=== PATIENT | male | born 1935 | race Caucasian/White ===

== ENCOUNTER 2020-01-18 13:07 | Outpatient (REF) | payer MEDICARE, SELFPAY ==
[2020-01-18 16:18] LABS: Alanine Aminotransferase 6 U/L (0-40); Anion Gap 15 (12-20); Aspartate Amino Transferase 13 U/L (5-37); Blood Urea Nitrogen 24 mg/dL (9-16); Calcium 8.7 mg/dL (8.4-10.2); Carbon Dioxide 25 mmol/L (22-29); Chloride 102 mmol/L (96-108); Estimated Glomerular Filt Rate 39; Glucose Random 99 mg/dL (60-115); Magnesium 2.4 mg/dL (1.6-2.6); Potassium 4.6 mmol/l (3.3-5.1); Sodium 137 mmol/L (135-145)
[2020-01-18 16:42] LABS: Thyroid Stimulating Hormone 5.54 mIU/mL (0.32-4.0)
== END 2020-01-18 13:08 | disposition home or self-care (01) ==
LOC: HO.LAB 13:07
PROVIDERS: PCP Internal Medicine; Visit Provider Nurse Practitioner Family
DX: I47.2 Ventricular tachycardia (principal); I48.92 Unspecified atrial flutter; I50.20 Unspecified systolic (congestive) heart failure; Z95.810 Presence of automatic (implantable) cardiac defibrillator
CPT/HCPCS: 80048; 83735; 84443; 84450; 84460; 93005; 99214

== ENCOUNTER 2020-08-05 11:27 | Outpatient (REF) | payer SELFPAY ==
--- NOTE | 2020-08-05 13:23 | MHC.AU.HFU ---
Hearing Instrument Follow-Up- Binaural Date of Visit: 08/05/20 Right Ear: Blanker Press Operator: Phonak Model: Personeraero [id number]-M13 Serial Number: [id number] Repair Warranty: Loss and Damage Warranty: Battery Size: 13 Color: Graphite Hawthorne Tubing: Size 2 slim tube Type of Dome: Small Open Dispensed By: [facility] Date of Fittin12/09/2013 Left Ear: Blanker Press Operator: Phonak Model: Bolero [id number] Serial Number: [id number] Repair Warranty: Loss and Damage Warranty: Battery Size: 13 Color: Graphite Hawthorne Tubing: Size 2 Slim Tube Type of Dome: Small Open Dispensed By: [facility] Date of Fittin12/09/2013 Follow-Up Summary: Patient's hearing aids were dropped off for repair by his friend, Suzanne. Slim tubes were occluded. Slim tubes and domes were replaced. Debris cleaned out of battery compartments. Outer surfaces cleaned. Microphones vacuumed. Hearing aids are working well after maintenance. Recommendations: Called Suzanne to say the hearing aids were ready for pickle cutter. $10 owed at pick-up. Diagnosis Code(s): Primary Diagnosis: H90.3 Bilateral Sensorineural Hearing Loss Signature: Provider: Po Elizondo, CCC-A
== END 2020-08-05 11:28 | disposition home or self-care (01) ==
LOC: HO.HAP 11:27
PROVIDERS: Visit Provider Internal Medicine
DX: Z46.1 Encounter for fitting and adjustment of hearing aid (principal); H90.3 Sensorineural hearing loss, bilateral
CPT/HCPCS: 99499

== ENCOUNTER → 2020-08-15 13:17 | Outpatient (BNVA) | payer BC, SELFPAY | PROVIDERS: PCP Internal Medicine; Referring Provider Internal Medicine; Visit Provider Internal Medicine Cardiovascular Disease | DX: Z45.02 Encounter for adjustment and management of automatic implantable cardiac defibrillator (principal); I50.20 Unspecified systolic (congestive) heart failure; I48.92 Unspecified atrial flutter | CPT/HCPCS: 93005 ==

== ENCOUNTER → 2020-09-22 08:51 | Outpatient (REF) | payer BC, SELFPAY ==
--- NOTE | 2020-09-22 09:29 | CA_ITS ---
Transthoracic Echocardiogram Patient (Last, First, Middle): Jr Dsouza, Gender: Male Date of : 1935 Age: 85 Procedure Date: 09/22/2020 Procedure Type: Transthoracic Echocardiogram Location: OP Height: 180.34 cm Weight: 97.52 kg BSA: 2.17 m2 Heart Rate: bpm BP: 124 / 74 mmHg German Instructor: Referring MD: Javier Dooley MD Respite Coordinator: Javier Dooley MD Symptoms: I50.20 - Unspecified systolic (congestive) heart failure Study Quality: Fair ECG Rhythm: Atrial Fibrillation Conclusions: - 1. Low normal LV systolic function with mild LVH 2. Mildly dilated left atrium 3. Trivial aortic and mitral regurgitation 4. No gross pericardial effusion Findings Left Ventricle Normal left ventricular cavity size. There is mildly increased left ventricular wall thickness. The left ventricular systolic function is low normal. The visually estimated ejection fraction is between 50-55%. Diastolic function is indeterminate on the basis of available data. Right Ventricle Normal right ventricular cavity size. There is an ICD wire seen in the right ventricle. Atria The left atrium is mildly dilated. Interatrial shunt cannot be excluded. The right atrium is mildly dilated. Aortic Valve There is mild calcification of the aortic valve. There is no aortic valve stenosis. There is trace (trivial) aortic valve regurgitation. Mitral Valve There is mild anterior and posterior mitral leaflet thickening. There is mild mitral annular calcification. There is trace mitral valve regurgitation. There is no mitral valve stenosis. Pulmonic Valve The pulmonic valve was not well visualized. Tricuspid Valve The tricuspid valve was not well visualized. Tricuspid regurgitation envelope is inadequate for calculation of right ventricular systolic pressure. Great Vessels The aorta was not well visualized. The pulmonary artery was not well visualized. Venous The inferior vena cava is normal in size and collapses greater than 50% with inspiration. Pericardium/Pleural There is no evidence of pericardial effusion. Prior Study Comparison Changes noted compared to prior study dated: 07/18/2018. LV systolic function has improved Measurements 2D Linear Measurements RVIDd: 2.82 RVIDd Index: 1.30 IVSd: 1.17 0.6-0.9/0.6-1.0 cm LVIDd: 4.87 3.9-5.3/4.2-5.9 cm LVIDd Index: 2.24 2.4-3.2/2.2-3.1 cm/m2 LVIDs: 3.33 2.0-3.6 cm LVPWd: 1.36 0.7-1.1 cm Ao Root: 4.00 2.1-3.5 cm LA Diam: 4.70 2.7-3.8/3.0-4.0 cm LAIDs Index: 2.17 1.5-2.3 cm/m2 LV Mass: 301.31 67-162/88-224 g LV Mass Index: 138.85 43-95/49-115 g/m2 LVOT Diam: 2.50 3.0+(-)1.3 cm 2D Systolic Function EF 4C: 49.70 >55% EF 2C: 57.70 >55% EF BiP: 54.70 >55% Aortic Valve AoV Pk Haresh: 1.09 AoV Mn Haresh: 0.83 AoV VTI: 0.18 AoV Pk Grad: 5.00 Aov Mn Grad: 3.00 CASSY Cont.VTI: 3.41 LVOT LVOT Pk Haresh: 0.65 LVOT Mn Haresh: 0.51 LVOT VTI: 0.12 LVOT Pk Grad: 2.00 LVOT Mn Grad: 1.00 LVOT Diam: 2.50 LVOT Area: 4.91 Tricuspid Valve RA Press: 3.00 Great Vessels Aorta Ao Root-2D: 4.00 2.0-3.7 cm Ao Asc: 4.00 2.1-3.4 cm Ao Arch: 3.40 Updated in Other Vendor System with Status of Final Javier Dooley MD electronically signed on 09/23/2020 12:15:16 PM with status of Final
== END ==
LOC: HO.CARD 08:51
PROVIDERS: PCP Internal Medicine; Visit Provider Internal Medicine Cardiovascular Disease
DX: I50.20 Unspecified systolic (congestive) heart failure (principal)
CPT/HCPCS: 93306

== ENCOUNTER 2021-01-16 10:20 | Outpatient (REF) | payer BC, SELFPAY ==
[2021-01-16 10:58] LABS: Hematocrit 37.9 % (42-52); Hemoglobin 12.2 g/dl (14.0-18.0); Mean Corpuscular HGB Conc 32.2 g/dl (31.0-36.0); Mean Corpuscular Hemoglobin 31.9 pg (27.0-33.0); Mean Corpuscular Volume 99.2 fL (80-98); Mean Platelet Volume 10.7 fL (9.4-12.4); Platelet Count 212 X10*3/uL (160-400); Red Blood Count 3.82 X10*6/uL (4.60-5.80); Red Cell Distribution Width 14.1 % (11.0-16.0); White Blood Count 5.1 X10*3/uL (4.8-10.8)
[2021-01-16 11:27] LABS: Alanine Aminotransferase 8 U/L (0-40); Alkaline Phosphatase 87 U/L (39-117); Anion Gap 12 (12-20); Aspartate Amino Transferase 16 U/L (5-37); Bilirubin Total 0.3 mg/dL (0.0-1.0); Blood Urea Nitrogen 20 mg/dL (9-16); Calcium 9.3 mg/dL (8.4-10.2); Carbon Dioxide 26 mmol/L (22-29); Chloride 107 mmol/L (96-108); Estimated Glomerular Filt Rate 38; Glucose Random 99 mg/dL (60-115); Potassium 4.1 mmol/L (3.3-5.1); Sodium 141 mmol/L (135-145); Total Protein 7.2 g/dL (6.5-8.0)
[2021-01-16 12:29] LABS: Free T4 (Free Thyroxine) 1.11 ng/dL (0.71-1.85)
== END 2021-01-16 10:21 | disposition home or self-care (01) ==
LOC: HO.LAB 10:20
PROVIDERS: Visit Provider Nurse Practitioner Family
DX: I48.92 Unspecified atrial flutter (principal); I50.20 Unspecified systolic (congestive) heart failure; Z79.01 Long term (current) use of anticoagulants
CPT/HCPCS: 36415; 80053; 84439; 84443; 85027

== ENCOUNTER 2021-02-13 09:14 | Outpatient (REF) | payer MEDICARE, SELFPAY ==
[2021-02-13 09:41] LABS: MANUAL DIFF FLAG NO
[2021-02-13 10:13] LABS: Basophils Percent Auto 0.6 % (0-2); Eosinophils Absolute Auto 0.2 X10*3/uL (0.0-0.4); Eosinophils Percent Auto 4.5 % (0-4); Hematocrit 38.4 % (42.0-52.0); Hemoglobin 12.6 g/dl (14.0-18.0); Imm Gran Abs Auto 0.01 X10*3/uL (0.00-0.03); Imm Gran Pct Auto 0.2 % (0.0-0.4); Lymphocytes Absolute Auto 1.3 X10*3/uL (1.2-4.9); Lymphocytes Percent Auto 25.3 % (20-40); Mean Corpuscular HGB Conc 32.8 g/dl (31.0-36.0); Mean Corpuscular Hemoglobin 32.1 pg (27.0-33.0); Mean Corpuscular Volume 97.7 fL (80.0-98.0); Mean Platelet Volume 10.8 fL (9.4-12.4); Monocytes Absolute Auto 0.5 X10*3/uL (0.1-1.2); Monocytes Percent Auto 8.8 % (2-11); Neutrophils Absolute Auto 3.1 x10*3/uL (2.0-8.3); Neutrophils Percent Auto 60.6 % (45-73); Platelet Count 192 X10*3/uL (160-400); Red Blood Count 3.93 X10*6/uL (4.60-5.80); Red Cell Distribution Width 14.4 % (11.0-16.0); White Blood Count 5.1 X10*3/uL (4.8-10.8)
[2021-02-13 10:35] LABS: B Type Natriuretic Peptide 83 pg/mL (<100)
[2021-02-13 10:53] LABS: Alanine Aminotransferase 9 U/L (0-40); Alkaline Phosphatase 79 U/L (39-117); Anion Gap 12 (12-20); Aspartate Amino Transferase 16 U/L (5-37); Bilirubin Total 0.4 mg/dL (0.0-1.0); Blood Urea Nitrogen 20 mg/dL (9-16); Calcium 9.3 mg/dL (8.4-10.2); Carbon Dioxide 25 mmol/L (22-29); Chloride 108 mmol/L (96-108); Estimated Glomerular Filt Rate 41; Glucose Random 92 mg/dL (60-115); Potassium 4.2 mmol/L (3.3-5.1); Sodium 141 mmol/L (135-145); Total Protein 7.2 g/dL (6.5-8.0)
[2021-02-13 11:05] LABS: Estimated Average Glucose 120 mg/dL; Hemoglobin A1C 131.7052 umol/L; Hemoglobin A1c % 5.8 %
[2021-02-13 11:19] LABS: Free T4 (Free Thyroxine) 1.16 ng/dL (0.71-1.85); Prostate Specific Antigen < 0.05 ng/mL (<0.05-4.0); Thyroid Stimulating Hormone 4.55 uIU/mL (0.32-4.0)
[2021-02-14 12:36] LABS: Thyroid Peroxidase Antibodies 1 IU/mL (<9)
== END 2021-02-13 09:15 | disposition home or self-care (01) ==
LOC: HO.LAB 09:14
PROVIDERS: PCP Internal Medicine; Visit Provider Internal Medicine
DX: I10 Essential (primary) hypertension (principal); I50.22 Chronic systolic (congestive) heart failure; M17.0 Bilateral primary osteoarthritis of knee; I48.20 Chronic atrial fibrillation, unspecified; E03.2 Hypothyroidism due to medicaments and other exogenous substances; R73.01 Impaired fasting glucose; Z85.46 Personal history of malignant neoplasm of prostate
CPT/HCPCS: 36415; 80053; 83036; 83880; 84153; 84439; 84443; 85025; 86376

== ENCOUNTER 2021-04-10 11:28 | Inpatient (IN) | payer MEDICARE, SELFPAY ==
--- NOTE | ~2021-04-10 | CT_ITS ---
EXAMINATION: CT ABDOMEN AND PELVIS WITHOUT CONTRAST CLINICAL INFORMATION: 2 weeks diarrhea. COMPARISON: None TECHNIQUE: Multidetector volumetric imaging was performed from the superior aspect of the liver through the pubic symphysis. No oral or intravenous contrast. Sagittal and coronal reformatted images were obtained on the technologist's workstation. This CT examination was performed using dose optimization techniques as appropriate, variously including the following: *Automated exposure control *Adjustment of mA and/or kV according to patient size (this includes techniques or standardized protocols for targeted exams where dose is matched to indication/reason for exam; i.e. extremities or head) *Use of iterative reconstruction technique DLP: 775 mGy-cm FINDINGS: LUNG BASES: No airspace consolidation or definite groundglass opacity or effusion. There are some accentuated subpleural reticular markings at both bases. Mild focal traction bronchiectasis present right medial base. LIVER, GALLBLADDER, AND BILIARY TREE: Liver is normal in size and smooth in contour. There is some benign calcification near the intersegmental fissure dome left lobe. There is no intrahepatic ductal dilatation. No focal hepatic parenchymal lesion. The gallbladder shows uniform high attenuation lumen, approximately 78 2. There is no gallbladder wall thickening or pericholecystic inflammatory changes. No high attenuation and common duct. PANCREAS: Atrophic, otherwise unremarkable. SPLEEN: Unremarkable. ADRENAL GLANDS: Unremarkable. KIDNEYS AND URETERS: No hydronephrosis, hydroureter, or perinephric stranding. Right kidney has a circumscribed water attenuation cyst lower pole 8 cm diameter, 2 HU attenuation. No additional imaging follow-up required. Left kidney has small parenchymal calcification lower pole under 4 mm. There is bilobed cyst lateral left lower pole 3.7 x 2.8 cm, 3 HU attenuation. No additional imaging follow-up required. BLADDER: Unremarkable. GASTROINTESTINAL TRACT: There is nonspecific circumferential pneumatosis involving the rectosigmoid. There is no bowel wall thickening or pericolic inflammatory changes. No fluid collection, or ascites, proximal obstruction, or free air. There are scattered diverticular in the sigmoid without diverticulitis. The appendix appears normal. ABDOMINAL WALL: Prior hernia repair. Small fat-containing inguinal hernia is suggested. LYMPH NODES: No lymphadenopathy. VASCULAR: Unremarkable. PELVIC VISCERA: No additional findings. OSSEOUS STRUCTURES: Degenerative changes lower thoracic and lumbar spine. Results called and discussed with ODIN Cordero in the emergency department at [address]/CT abdomen pelvis wo con IMPRESSION: 1. Nonspecific circumferential pneumatosis limited to rectosigmoid. No bowel wall thickening or pericholecystic inflammatory changes. No free air or obstruction or ascites or fluid collection. No venous gas. Differential considerations include iatrogenic cause, medication/steroids, infection/inflammatory, and ischemia. 2. Nonspecific high attenuation gallbladder lumen without wall thickening, or visible calculi, ductal dilatation, or pericholecystic inflammatory changes. Differential considerations include outside contrast-enhanced exam with vicarious excretion, hyper concentrated bile, sludge, gallbladder hemorrhage, drug-induced.
--- NOTE | ~2021-04-10 | US_ITS ---
EXAMINATION: US ABDOMEN LIMITED CLINICAL INFORMATION: Characterize gallbladder findings on CT. COMPARISON: CT abdomen and pelvis 04/10/2021 TECHNIQUE: Real-time imaging of the right upper quadrant abdominal viscera. FINDINGS: There is echogenic debris in the gallbladder but no echogenic stones. Gallbladder wall thickness measures 0.25 cm. There is no tenderness by ultrasound probe. Common bile duct measures 0.3 cm. US/US abdomen limited IMPRESSION: Dilated gallbladder with minimal echogenic debris but no echogenic stone. The gallbladder wall thickness is borderline measuring 0.25 cm.
[2021-04-10 11:59] VITALS: BP 101/56; BP 124/80; PULSE 65; PULSE 74; RESP 14; TEMP 35.9; O2SAT 93; O2SAT 98; BMI 30.7
--- NOTE | 2021-04-10 12:35 | ED.GENADULT ---
HPI - General Adult General Chief complaint: Nausea/Vomiting/Diarrhea Stated complaint: DIARRHEA Time Seen by Provider: 04/10/21 12:02 Source: patient Mode of arrival: EMS Limitations: no limitations History of Present Illness HPI narrative: 86-year-old male with a past medical history of AFib on Eliquis, cardiomyopathy, heart failure, ICD, and NSVT who lives in assisted living presents for 2 weeks of diarrhea. Patient is reporting at least 5 episodes of diarrhea daily for the last 2 weeks. Prior to this he had normal bowel movements. Patient denies any recent antibiotic use, travel, any new water sources, bad food. Denies vomiting or abdominal pain. No fevers. Is eating okay. He does not feel weak or dizzy, no chest pain, no shortness of breath. No sick contacts. He is vaccinated for COVID. Related Data Home Medications Medication Instructions Recorded Confirmed lisinopril 2.5 mg tablet 2.5 mg PO DAILY 01/18/20 08/15/20 metoprolol tartrate 25 mg tablet 12.5 mg PO TID 01/18/20 08/15/20 Previous Rx's Medication Instructions Recorded apixaban 2.5 mg tablet (Eliquis) 2.5 mg PO BID #180 tab 02/01/20 cilostazol 50 mg tablet 50 mg PO Q12H #180 tab 04/01/20 amiodarone 200 mg tablet 200 mg PO DAILY 90 Days #90 tab 03/08/21 Allergies Allergy/AdvReac Type Severity Reaction Status Date / Time No Known Allergies Allergy Unverified 12/10/19 15:32 [No Known Allergies*] Review of Systems Constitutional: Constitutional: Denies body ache(s), Denies chills, Denies fatigue, Denies fever(s), Denies headache(s), Denies malaise and Denies weakness Eyes: Eyes: Denies diplopia ENT: Denies vertigo, Denies dizziness, Denies otalgia, Denies headache(s), Denies sore throat and Denies throat swelling Cardiovascular: Cardiovascular: Denies chest pain, Denies syncope, Denies leg edema, Denies palpitations and Denies dyspnea Respiratory: Respiratory: Denies chest congestion, Denies cough and Denies dyspnea Gastrointestinal: Gastrointestinal: Denies abdominal pain, Denies melena, Denies hematochezia, Denies constipation, Reports diarrhea and Denies vomiting Genitourinary: Genitourinary: Denies hematuria, Denies dysuria and Denies penile discharge Musculoskeletal: Musculoskeletal: Reports no additional musculoskeletal complaints Integumentary/Breasts: Skin/Breast: Denies rash Neurologic: Denies confusion, Denies vertigo, Denies dizziness, Denies syncope, Denies headache(s) and Denies weakness Psychiatric: Psychiatric: Denies anxiety, Denies confusion and Denies depression Endocrine: Endocrine: Denies fatigue and Denies palpitations Allergic/Immunologic: Allergic/Immunologic: Denies throat swelling PMFSH Past Medical History Medical History (Updated 04/10/21 @ 17:52 by Cristian Guerrero MD) Afib Atrial flutter Cardiomyopathy Chronic anticoagulation Diarrhea HFrEF (heart failure with reduced ejection fraction) ICD (implantable cardioverter-defibrillator) in place NSVT (nonsustained ventricular tachycardia) Pneumatosis coli Surgical History H/O prostatectomy Family History Family History Father No problems noted. Mother No problems noted. Social History Social History Housing: Assisted Living Facility Alcohol intake: never Patient Tobacco Use Status: Never used Tobacco Use of substances other than those prescribed or required for medical reasons: No Advance Directives: No Advance Directives Information Provided: No Physical Exam Vital Signs: Vital Signs: Last Vital Signs Temp 98 F 04/10/21 16:22 Pulse 65 04/10/21 16:22 Resp 14 04/10/21 16:22 BP 109/58 L 04/10/21 16:22 Pulse Ox 95 04/10/21 16:22 BMI result Body Mass Index 30.7 Const: General: no acute distress, well developed, alert and awake; No confusion Nutritional Appearance: well nourished Orientation/consciousness: patient oriented x3 and No confusion Limitations: no limitations HENMT: Head: Yes normal to inspection, Yes normocephalic and Yes atraumatic Ears: hearing grossly normal bilaterally, external ears normal, TM's normal bilaterally and EAC's normal General nose exam: Normal external nose present Face and sinus: Yes normal facial exam and Yes sinuses nontender Mouth: Normal oral and palatal mucosa present Throat: Yes posterior oropharynx normal Eyes: Conjunctivae: conjunctivae normal Pupils: Equal, round and reactive pupils present EOM: EOMs intact bilaterally Neck: Neck: Yes full ROM, Yes no lymphadenopathy and Yes supple Resp: Effort & Inspection: normal respiratory effort and able to speak in complete sentences Auscultation: clear to auscultation bilaterally, no crackles, no rales, no rhonchi and no wheezes Cardio: Rate: regular rate Rhythm: regular rhythm Heart sounds: S1 normal heart sound present and S2 normal heart sound present GI: Inspection: Yes normal to inspection and Yes obesity Palpation (GI): Soft to palpation, nontender, no guarding and not rigid Percussion: Yes normal to percussion Auscultation: normal bowel sounds Rectal Exam - Male: Yes visual inspection normal, Yes normal sphincter tone, Yes Abnormal stool present (liquid light brown stool, foul odor), No External hemorrhoid(s) present, No Internal hemorrhoid(s) present, No Lesions present (GI), No fecal impaction, No Anal fissure(s) present and No tenderness Skin: General skin exam: no rashes or lesions noted Neuro: General: patient oriented x3 and No confusion Cranial nerves: Yes Equal, round and reactive pupils present Extrem: General: Yes normal to inspection and Yes full ROM Psych: Appearance: grossly normal Affect: normal affect Attitude: cooperative Thought process: Normal thought process present Course Course Course Narrative: 86-year-old male presents for 2 weeks of multiple episodes of diarrhea. Patient has no chest pain, shortness of breath, abdominal pain, he does not feel weak or dizzy. Patient is hypotensive at 101/56, temperature 96.7? Patient has a benign abdominal exam, is not tender guarding in any quadrant. Rectal exam shows scant loose light colored brown stool with foul odor Patient is pleasant, mildly hard of hearing, he seems alert and oriented and very with it for his age Patient's hypotension most likely due to volume depletion, I do not suspect sepsis, but will give fluids get blood culture and lactate Reevaluation(s) Reevaluation #1: Patient has a white count of 17.4, a creatinine of 1.7 which is close to his baseline. COVID negative. Lactate 1.2. Labs otherwise unremarkable. Dr Smith radiologist called, [address]; pneumatosis in his rectosigmoid, with no wall thickening, no obstruction, no free air. Lactic acid is 1.2, unlikely ischemia. Also patient has high attenuation in his gallbladder that could represent gallbladder hemorrhage, sludge filled gallbladder, or increased bile. Patient has no abdominal pain, no elevated LFTs normal bilirubin. Will order ultrasound of gallbladder to characterize CT findings, added magnesium to labs CT: CT/CT abdomen pelvis wo con IMPRESSION: 1. Nonspecific circumferential pneumatosis limited to rectosigmoid. No bowel wall thickening or pericholecystic inflammatory changes. No free air or obstruction or ascites or fluid collection. No venous gas. Differential considerations include iatrogenic cause, medication/steroids, infection/inflammatory, and ischemia. ? 2. Nonspecific high attenuation gallbladder lumen without wall thickening, or visible calculi, ductal dilatation, or pericholecystic inflammatory changes. Differential considerations include outside contrast-enhanced exam with vicarious excretion, hyper concentrated bile, sludge, gallbladder hemorrhage, drug-induced. Reevaluation #2: Spoke to Dr Du, hospitalist via tiger text; he is aware of patient. Morven texted Dr Guerrero, general surgery, asked him to review CT scan. He texted he will come by and evaluate patient. Spoke to Dr Valdivia, GI oncall, who said pneumatosis in the rectosigmoid is a contraindication for lower GI endoscopy. Stated he suspected this finding was probably benign, as patient has no rectal pain, no abdominal pain, and a benign abdominal exam Ultrasound unremarkable, see report below, magnesium is normal at 2.0 US/US abdomen limited IMPRESSION: Dilated gallbladder with minimal echogenic debris but no echogenic stone. The gallbladder wall thickness is borderline measuring 0.25 cm. Discussed case with Dr Austin; we will start levoquin and flagyl Dr Guerrero evaluated pt, and would like him admitted for observation. Dr Du will accept Medical Decision Making Lab Data Result diagrams: 04/10/21 13:44 04/10/21 13:44 Labs: Lab Results 04/10/21 04/10/21 04/10/21 Range/Units 13:44 13:44 13:44 WBC 17.4 H (4.8-10.8) X10*3/uL RBC 3.82 L (4.60-5.80) X10*6/uL Hgb 12.4 L (14.0-18.0) g/dl Hct 36.3 L (42.0-52.0) % MCV 95.0 (80.0-98.0) fL MCH 32.5 (27.0-33.0) pg MCHC 34.2 (31.0-36.0) g/dl RDW 14.8 (11.0-16.0) % Plt Count 193 (160-400) X10*3/uL MPV 11.6 (9.4-12.4) fL Immature Gran % (Auto) 0.5 H (0.0-0.4) % Neut % (Auto) 52.6 (45-73) % Lymph % (Auto) 7.8 L (20-40) % [place] % (Auto) 4.0 (2-11) % Eos % (Auto) 34.9 H (0-4) % Baso % (Auto) 0.2 (0-2) % Lymph # (Auto) 1.4 (1.2-4.9) X10*3/uL [place] # (Auto) 0.7 (0.1-1.2) X10*3/uL Eos # (Auto) 6.1 H (0.0-0.4) X10*3/uL Baso # (Auto) 0.0 (0.0-0.2) X10*3/uL Abs Immat Gran (auto) 0.08 H (0.00-0.03) X10*3/uL Absolute Neuts (auto) 9.2 H (2.0-8.3) x10*3/uL Absolute Nucleated RBC 0.000 (0.0-0.012) X10*3/uL Nucleated RBC % (auto) 0.0 (0.0-0.2) /100WBC Smear Tech's Comments VERIFIED Sodium 141 (135-145) mmol/L Potassium 3.3 D (3.3-5.1) mmol/L Chloride 111 H (96-108) mmol/L Carbon Dioxide 22 (22-29) mmol/L Anion Gap 11 L (12-20) BUN 25 H (9-16) mg/dL Creatinine 1.70 H (0.5-1.4) mg/dL Estim Creat Clear Calc 38.2 Estimated GFR 38 Random Glucose 112 (60-115) mg/dL Lactic Acid (0.5-2.0) mmol/L Calcium 8.5 D (8.4-10.2) mg/dL Magnesium 2.0 (1.6-2.6) mg/dL Total Bilirubin 0.5 (0.0-1.0) mg/dL Direct Bilirubin 0.2 (0.0-0.5) mg/dL AST 14 (5-37) U/L ALT 11 (0-40) U/L Alkaline Phosphatase 116 D (39-117) U/L Total Protein 6.0 L (6.5-8.0) g/dL Albumin 3.1 L D (3.5-5.0) g/dL Lipase 19 (8-78) U/L Stool Occult Blood (NEGATIVE) COVID-19 (MIS) Negative (Negative) COVID-19 Clin Com See Note 04/10/21 04/10/21 Range/Units 13:44 16:19 WBC (4.8-10.8) X10*3/uL RBC (4.60-5.80) X10*6/uL Hgb (14.0-18.0) g/dl Hct (42.0-52.0) % MCV (80.0-98.0) fL MCH (27.0-33.0) pg MCHC (31.0-36.0) g/dl RDW (11.0-16.0) % Plt Count (160-400) X10*3/uL MPV (9.4-12.4) fL Immature Gran % (Auto) (0.0-0.4) % Neut % (Auto) (45-73) % Lymph % (Auto) (20-40) % [place] % (Auto) (2-11) % Eos % (Auto) (0-4) % Baso % (Auto) (0-2) % Lymph # (Auto) (1.2-4.9) X10*3/uL [place] # (Auto) (0.1-1.2) X10*3/uL Eos # (Auto) (0.0-0.4) X10*3/uL Baso # (Auto) (0.0-0.2) X10*3/uL Abs Immat Gran (auto) (0.00-0.03) X10*3/uL Absolute Neuts (auto) (2.0-8.3) x10*3/uL Absolute Nucleated RBC (0.0-0.012) X10*3/uL Nucleated RBC % (auto) (0.0-0.2) /100WBC Smear Tech's Comments Sodium (135-145) mmol/L Potassium (3.3-5.1) mmol/L Chloride (96-108) mmol/L Carbon Dioxide (22-29) mmol/L Anion Gap (12-20) BUN (9-16) mg/dL Creatinine (0.5-1.4) mg/dL Estim Creat Clear Calc Estimated GFR Random Glucose (60-115) mg/dL Lactic Acid 1.2 (0.5-2.0) mmol/L Calcium (8.4-10.2) mg/dL Magnesium (1.6-2.6) mg/dL Total Bilirubin (0.0-1.0) mg/dL Direct Bilirubin (0.0-0.5) mg/dL AST (5-37) U/L ALT (0-40) U/L Alkaline Phosphatase (39-117) U/L Total Protein (6.5-8.0) g/dL Albumin (3.5-5.0) g/dL Lipase (8-78) U/L Stool Occult Blood POSITIVE (NEGATIVE) COVID-19 (MIS) (Negative) COVID-19 Clin Com Discharge Plan Discharge Clinical Impression: Pneumatosis intestinalis Diarrhea Qualifiers: Diarrhea type: unspecified type Qualified Code(s): R19.7 - Diarrhea, unspecified Patient Disposition: Admitted As Inpatient
[2021-04-10] MEDS: 0.9 % Sodium Chloride 1,000 ML 999 ML IV (13:46)
[2021-04-10 13:58] LABS: Basophils Percent Auto 0.2 % (0-2); Eosinophils Absolute Auto 6.1 X10*3/uL (0.0-0.4); Eosinophils Percent Auto 34.9 % (0-4); Hematocrit 36.3 % (42.0-52.0); Hemoglobin 12.4 g/dl (14.0-18.0); Imm Gran Abs Auto 0.08 X10*3/uL (0.00-0.03); Imm Gran Pct Auto 0.5 % (0.0-0.4); Lymphocytes Absolute Auto 1.4 X10*3/uL (1.2-4.9); Lymphocytes Percent Auto 7.8 % (20-40); MANUAL DIFF FLAG SCAN; Mean Corpuscular HGB Conc 34.2 g/dl (31.0-36.0); Mean Corpuscular Hemoglobin 32.5 pg (27.0-33.0); Mean Platelet Volume 11.6 fL (9.4-12.4); Monocytes Absolute Auto 0.7 X10*3/uL (0.1-1.2); Neutrophils Absolute Auto 9.2 x10*3/uL (2.0-8.3); Neutrophils Percent Auto 52.6 % (45-73); Platelet Count 193 X10*3/uL (160-400); Red Blood Count 3.82 X10*6/uL (4.60-5.80); Red Cell Distribution Width 14.8 % (11.0-16.0); SCAN SMEAR FLAG 1; White Blood Count 17.4 X10*3/uL (4.8-10.8)
[2021-04-10 14:04] LABS: Lactic Acid 1.2 mmol/L (0.5-2.0)
[2021-04-10 14:10] LABS: Alanine Aminotransferase 11 U/L (0-40); Albumin Level 3.1 g/dL (3.5-5.0); Alkaline Phosphatase 116 U/L (39-117); Anion Gap 11 (12-20); Aspartate Amino Transferase 14 U/L (5-37); Bilirubin Direct 0.2 mg/dL (0.0-0.5); Bilirubin Total 0.5 mg/dL (0.0-1.0); Blood Urea Nitrogen 25 mg/dL (9-16); Calcium 8.5 mg/dL (8.4-10.2); Carbon Dioxide 22 mmol/L (22-29); Chloride 111 mmol/L (96-108); Creatinine Clr Calc Pharmacy 38.2; Estimated Glomerular Filt Rate 38; Glucose Random 112 mg/dL (60-115); Lipase 19 U/L (8-78); Potassium 3.3 mmol/L (3.3-5.1); Sodium 141 mmol/L (135-145)
[2021-04-10 14:17] LABS: COVID-19 Test Negative (Negative); SLIDE REVIEW VERIFIED
[2021-04-10 14:31] VITALS: BP 121/92; PULSE 64; RESP 18; TEMP 36.5; O2SAT 96
[2021-04-10 16:22] VITALS: BP 109/58; PULSE 65; RESP 14; TEMP 36.6; O2SAT 95
[2021-04-10 16:33] LABS: OBS Int Ctl Valid YES; OBS1 POSITIVE (NEGATIVE)
--- NOTE | 2021-04-10 17:45 | PM.HPGS ---
History of Present Illness History of Present Illness Date of Service: 04/13/21 Chief complaint: Diarrhea,pneumatosis Narrative: Jr Dsouza is a 86 year old male who wa sent to the ED this morning from [facility] because of diarrhea. He says he has had diarrhea, described as multiple liquid brown stools, not bloody, 10-20 times a day for over a month now. He says that this seemed to have eased up for about 2 days, but he says the poast 2 weeks at least, he has had this everyday. He denies any abdominal pain. He denies any nausea or vomitting. He says that aside from diarrhea, he actually feels well. He has no fever or chills. He describes being forgetful at times. He has afib/aflutter and is on Eliquis. he sees Dr. Dooley of cardiology regularly. Review of Systems Constitutional: Constitutional: Denies chills and Denies fever(s) Cardiovascular: Cardiovascular: Denies chest pain, Denies dyspnea and Denies dyspnea on exertion Respiratory: Respiratory: Denies cough, Denies dyspnea and Denies dyspnea on exertion Gastrointestinal: Gastrointestinal: Denies hematochezia and Denies change in bowel habits Genitourinary: Genitourinary: Denies hematuria and Denies difficulty urinating Musculoskeletal: Musculoskeletal: Denies back pain and Denies limited range of motion Neurologic: Denies focal weakness and Denies convulsions Psychiatric: Psychiatric: Denies depression and Denies mood swings PMFSH Past Medical History Medical History Afib Atrial flutter Cardiomyopathy Chronic anticoagulation Diarrhea HFrEF (heart failure with reduced ejection fraction) ICD (implantable cardioverter-defibrillator) in place NSVT (nonsustained ventricular tachycardia) Pneumatosis coli Family History Family History Father No problems noted. Mother No problems noted. Surgical History Surgical History H/O prostatectomy Social History Social History Household Members: None Housing: Assisted Living Facility Do you presently have visiting nurse or other home services: No Alcohol intake: never Patient Tobacco Use Status: Never used Tobacco service: Yes Current occupational status: retired Meds Allergies Allergy/AdvReac Type Severity Reaction Status Date / Time No Known Allergies Allergy Unverified 12/10/19 15:32 [No Known Allergies*] Active Medications: Current Medications Metronidazole (Flagyl) 500 mg in 100 mls @ 100 mls/hr IV ONCE ONE Stop: 04/10/21 18:19 Levofloxacin (Levaquin) 750 mg in 150 mls @ 100 mls/hr IV Q48H [facility] Home Medications Medication Instructions Recorded Confirmed Last Taken Type lisinopril 2.5 mg tablet 2.5 mg PO DAILY 01/18/20 04/10/21 04/10/21 History metoprolol tartrate 25 mg tablet 12.5 mg PO TID 01/18/20 04/10/21 04/10/21 History acetaminophen 500 mg tablet 500 mg PO BID PRN 04/10/21 04/10/21 04/10/21 History cilostazol 50 mg tablet 50 mg PO BID 04/10/21 04/10/21 04/10/21 History levothyroxine 25 mcg tablet 1 tab PO DAILY 04/10/21 04/10/21 04/10/21 History Physical Exam Vital Signs: Vital Signs: Last Vital Signs Temp 98 F 04/10/21 16:22 Pulse 65 04/10/21 16:22 Resp 14 04/10/21 16:22 BP 109/58 L 04/10/21 16:22 Pulse Ox 95 04/10/21 16:22 BMI result Body Mass Index 30.7 Const: General: comfortable and no acute distress Orientation/consciousness: patient oriented x3 Neck: Neck: Yes no lymphadenopathy Resp: Auscultation: clear to auscultation bilaterally Cardio: Rhythm: abnormal rhythm GI: Palpation (GI): Soft to palpation, nontender, no guarding and not rigid Neuro: General: patient oriented x3 Results Results Labs: Short CBC 04/10/21 Range/Units 13:44 WBC 17.4 H (4.8-10.8) X10*3/uL Hgb 12.4 L (14.0-18.0) g/dl Hct 36.3 L (42.0-52.0) % Plt Count 193 (160-400) X10*3/uL BMP 04/10/21 13:44 Sodium 141 Potassium 3.3 D Chloride 111 H Carbon Dioxide 22 BUN 25 H Creatinine 1.70 H Calcium 8.5 D Liver Function 04/10/21 Range/Units 13:44 Total Bilirubin 0.5 (0.0-1.0) mg/dL Direct Bilirubin 0.2 (0.0-0.5) mg/dL AST 14 (5-37) U/L ALT 11 (0-40) U/L Alkaline Phosphatase 116 D (39-117) U/L Albumin 3.1 L D (3.5-5.0) g/dL Abdomen CT scan report/results: report reviewed and image reviewed CT scan - pelvis: report reviewed and image reviewed Assessment and Plan (1) Diarrhea: Status: Acute He has had diarrhea for more than 2 weeks. He denies any blood per rectum. He denies any abdominal pain. He says he usually has 10-20 bowel movements, brown and watery, everyday. His CT scan shows pneumotosis in the rectum without any free air. He actually looks comfortable and has a very benign presentation. He has leukocytosis at 17 but does not have acidosis and no elevated lactate. Despite his benign presentation and chronic course, I will admit him in view of nonspecific leukocytosis on CT scan. I will consult the Medical service as he has Afib and is on Eliquis. THis will be held for now in case he will need surgical intervention which seems to be unlikely. We may consider doing a flex sig or colonoscopy down the line depending on his clinical course. I have ordered for stool C diff to be checked for his diarrhea. I have informed his friend/next of kin Suzanne Christianson by phone as per pt request. (2) Pneumatosis coli: Status: Acute He has a very benign exam at this time and he does not have any pain or tenderness. I have reviewed his CAT scan with the radiologist. Quality Stroke Does the patient have a stroke diagnosis?: No VTE Prior VTE?: No VTE Risk Level:: Medical - moderate - high VTE Device Contraindication: N/A - Device Ordered VTE Drug Contraindication: N/A - Med Ordered Procedures Date of Service Date of Service: 04/10/21
--- NOTE | 2021-04-10 18:11 | HO.PM.IMCN ---
History of Present Illness Data of Consult Service Date: 04/10/21 Primary Care Provider: Clay Sanchez MD HPI 86-year-old male who was sent to the ER this morning from [facility] because of diarrhea. He states he size PCP 2 days ago and he advised him to presents to the ER secondary to multiple liquid brown stools not bloody. He states he has been stooling 10-20 times a day over the last month. CT scan demonstrated circumferential pneumatosis limited to the rectosigmoid area. Dr. Guerrero admitted the patient and we were asked to see for medical management. Review of Systems Review of Systems: Denies chest pain Denies shortness of breath Denies nausea and vomiting. Admits to diarrhea Denies abdominal pain Denies palpitations PMFSH Medical History Afib Atrial flutter Cardiomyopathy Chronic anticoagulation Diarrhea HFrEF (heart failure with reduced ejection fraction) ICD (implantable cardioverter-defibrillator) in place NSVT (nonsustained ventricular tachycardia) Pneumatosis coli Family History Father No problems noted. Mother No problems noted. Surgical History H/O prostatectomy Social History Housing: Assisted Living Facility Alcohol intake: never Patient Tobacco Use Status: Never used Tobacco Use of substances other than those prescribed or required for medical reasons: No Advance Directives: No Advance Directives Information Provided: No Meds Allergies Allergy/AdvReac Type Severity Reaction Status Date / Time No Known Allergies Allergy Unverified 12/10/19 15:32 [No Known Allergies*] Active Medications: Current Medications Heparin Sodium (Porcine) (Heparin Sodium,Porcine 5,000 Unit/Ml Vial) 5,000 unit SUBCUT Q12H [facility] Metronidazole (Flagyl) 500 mg in 100 mls @ 100 mls/hr IV ONCE ONE Stop: 04/10/21 18:19 Levofloxacin (Levaquin) 750 mg in 150 mls @ 100 mls/hr IV Q48H [facility] Lactated Ringer's (Lr) 1,000 mls @ 80 mls/hr IVCONT .[id number] [facility] Metronidazole (Flagyl) 500 mg in 100 mls @ 100 mls/hr IV Q8H [facility] Pharmacy Consult (Consult Rx Perform Med Rec) 1 each MISCELLANE ONCE PRN PRN Reason: Consult order Sodium Chloride (0.9 % Sodium Chloride Flush 3 Ml Syringe) 3 ml IVFLUSH QSHIFT [facility] Home Medications Medication Instructions Recorded Confirmed Last Taken Type lisinopril 2.5 mg tablet 2.5 mg PO DAILY 01/18/20 08/15/20 Unknown History metoprolol tartrate 25 mg tablet 12.5 mg PO TID 01/18/20 08/15/20 Unknown History Physical Exam Vital Signs and Narrative: Vital Signs: Last Vital Signs Temp 98 F 04/10/21 16: Pulse 65 04/10/21 16:22 Resp 14 04/10/21 16:22 BP 109/58 L 04/10/21 16:22 Pulse Ox 95 04/10/21 16:22 BMI result Body Mass Index 30.7 Const: Other: resting comfortably no acute distress HENMT: Other: membranes moist Resp: Other: clear to auscultation bilaterally no rales rhonchi or wheezes Cardio: Other: no S4; positive S1-S2; no S3 murmurs rubs or gallops GI: Other: soft nontender nondistended with normoactive bowel sounds. No rebound or guarding Neuro: Other: cranial nerves 2-12 grossly intact as tested. Motor is 5 of 5 all extremities. Sensation intact. Cognition appropriate Extrem: Other: no edema bilaterally Results Labs CBC and Chem 7: 04/10/21 13:44 04/10/21 13:44 Labs: Laboratory Results - last 24 hr 04/10/21 04/10/21 04/10/21 13:44 13:44 13:44 MCV 95.0 MCH 32.5 MCHC 34.2 RDW 14.8 Plt Count 193 MPV 11.6 Immature Gran % (Auto) 0.5 H Neut % (Auto) 52.6 Lymph % (Auto) 7.8 L [place] % (Auto) 4.0 Eos % (Auto) 34.9 H Baso % (Auto) 0.2 Lymph # (Auto) 1.4 [place] # (Auto) 0.7 Eos # (Auto) 6.1 H Baso # (Auto) 0.0 Abs Immat Gran (auto) 0.08 H Absolute Neuts (auto) 9.2 H Absolute Nucleated RBC 0.000 Nucleated RBC % (auto) 0.0 Smear Tech's Comments VERIFIED Anion Gap 11 L Estim Creat Clear Calc 38.2 Estimated GFR 38 Random Glucose 112 Lactic Acid Calcium 8.5 D Magnesium 2.0 Total Bilirubin 0.5 Direct Bilirubin 0.2 AST 14 ALT 11 Alkaline Phosphatase 116 D Total Protein 6.0 L Albumin 3.1 L D Lipase 19 Stool Occult Blood COVID-19 (MIS) Negative COVID-19 Clin Com See Note 04/10/21 04/10/21 13:44 16:19 MCV MCH MCHC RDW Plt Count MPV Immature Gran % (Auto) Neut % (Auto) Lymph % (Auto) [place] % (Auto) Eos % (Auto) Baso % (Auto) Lymph # (Auto) [place] # (Auto) Eos # (Auto) Baso # (Auto) Abs Immat Gran (auto) Absolute Neuts (auto) Absolute Nucleated RBC Nucleated RBC % (auto) Smear Tech's Comments Anion Gap Estim Creat Clear Calc Estimated GFR Random Glucose Lactic Acid 1.2 Calcium Magnesium Total Bilirubin Direct Bilirubin AST ALT Alkaline Phosphatase Total Protein Albumin Lipase Stool Occult Blood POSITIVE COVID-19 (MIS) COVID-19 Clin Com Imaging Radiologist's Impressions: Impressions Abdomen/Pelvis CT 04/10/21 15:00 IMPRESSION: 1. Nonspecific circumferential pneumatosis limited to rectosigmoid. No bowel wall thickening or pericholecystic inflammatory changes. No free air or obstruction or ascites or fluid collection. No venous gas. Differential considerations include iatrogenic cause, medication/steroids, infection/inflammatory, and ischemia. 2. Nonspecific high attenuation gallbladder lumen without wall thickening, or visible calculi, ductal dilatation, or pericholecystic inflammatory changes. Differential considerations include outside contrast-enhanced exam with vicarious excretion, hyper concentrated bile, sludge, gallbladder hemorrhage, drug-induced. Abdomen Ultrasound 04/10/21 16:30 IMPRESSION: Dilated gallbladder with minimal echogenic debris but no echogenic stone. The gallbladder wall thickness is borderline measuring 0.25 cm. Assessment and Plan (1) Pneumatosis coli: Status: Acute (2) Atrial flutter: Status: Acute (3) HFrEF (heart failure with reduced ejection fraction): Status: Acute 86-year-old male presents with multiple episodes of diarrhea without blood. CT demonstrates pneumatosis coli. admitted to surgery. Consult for medical management 1. Pneumotosis Coli -as per surgery -hold anticoagulation at this time; resume when appropriate 2.Aflutter - stable rate on current therapies....continue same - restart Eliquist as per surgery -continue Amio/Metoprolol as oredered 3. HTN - continue lisinopril - adjust as indicated 4. HFrEF - stable on current therapies - follow clinically DNR/DNI Boots
--- NOTE | 2021-04-10 18:56 | PHA.MEDREC ---
Pharmacy Consult ? Medication Reconciliation Pharmacy has completed the medication reconciliation.
[2021-04-10] MEDS: levoFLOXacin/D5W 750 MG/150 ML PIGGYBACK 100 MG IV (19:27)
[2021-04-10 20:00] VITALS: BP 115/64; PULSE 67; TEMP 36.8; O2SAT 93
--- NOTE | 2021-04-10 20:31 | PC.NURSE ---
called pharmacy for medication not available in the pyxis,
[2021-04-10] MEDS: metroNIDAZOLE/NS 500 MG/100 ML PIGGYBACK 100 MG IV (21:06)
[2021-04-10] MEDS: Lactated Ringers 1,000 ML 100 ML IVCONT (21:09)
[2021-04-10 22:05] VITALS: BP 112/58; PULSE 68; RESP 16; TEMP 36.8; O2SAT 98
--- NOTE | 2021-04-10 22:06 | PC.NURSE ---
assumed care of pt at 2200 - 1900 metoprolol not given by previous RN as it was not in the pyxis, 2100 dose due and will be administered per MAR
[2021-04-10] MEDS: Metoprolol Succinate ER 12.5 MG HALFTAB.ER.24H PO (22:18)
[2021-04-11] MEDS: metroNIDAZOLE/NS 500 MG/100 ML PIGGYBACK 100 MG IV ×3 (03:31→19:06)
[2021-04-11] MEDS: Lactated Ringers 1,000 ML 100 ML IVCONT ×2 (03:31→10:08)
[2021-04-11 06:53] VITALS: BP 125/68; PULSE 87; RESP 14; O2SAT 96
[2021-04-11 07:24] LABS: Hematocrit 33.1 % (42.0-52.0); Hemoglobin 11.3 g/dl (14.0-18.0); Mean Corpuscular HGB Conc 34.1 g/dl (31.0-36.0); Mean Corpuscular Hemoglobin 32.9 pg (27.0-33.0); Mean Corpuscular Volume 96.5 fL (80.0-98.0); Mean Platelet Volume 11.2 fL (9.4-12.4); Platelet Count 167 X10*3/uL (160-400); Red Blood Count 3.43 X10*6/uL (4.60-5.80); Red Cell Distribution Width 15.2 % (11.0-16.0); White Blood Count 16.5 X10*3/uL (4.8-10.8)
[2021-04-11 07:46] LABS: Anion Gap 8 (12-20); Blood Urea Nitrogen 19 mg/dL (9-16); Calcium 8.2 mg/dL (8.4-10.2); Carbon Dioxide 22 mmol/L (22-29); Chloride 114 mmol/L (96-108); Creatinine Clr Calc Pharmacy 43.3; Estimated Glomerular Filt Rate 44; Glucose Random 91 mg/dL (60-115); Potassium 3.4 mmol/L (3.3-5.1); Sodium 141 mmol/L (135-145)
--- NOTE | 2021-04-11 08:44 | PM.PNGS ---
Subjective Subjective Date of Service: 04/12/21 Interval history: says he feels well deniea abdl pain no fever diarrhea much improved asking about getting dscharged back to assisted living Physical Exam Vital Signs: Vital Signs: Last Vital Signs Temp 98.2 F 04/10/21 22:05 Pulse 87 04/11/21 06:53 Resp 14 04/11/21 06:53 BP 125/68 04/11/21 06:53 Pulse Ox 96 04/11/21 06:53 BMI result Body Mass Index 30.7 Const: General: comfortable, no acute distress and alert Cardio: Rhythm: abnormal rhythm GI: Palpation (GI): Soft to palpation, not firm, nontender and no guarding Objective Data Active Medications Amiodarone HCl (Amiodarone Hcl 200 Mg Tablet) 200 mg PO DAILY [facility] Heparin Sodium (Porcine) (Heparin Sodium,Porcine 5,000 Unit/Ml Vial) 5,000 unit SUBCUT Q12H [facility] Levofloxacin (Levaquin) 750 mg in 150 mls @ 100 mls/hr IV Q48H [facility] Last Infusion: 04/10/21 21:06 Dose: 0 mls/hr Documented by: OMA Lactated Ringer's (Lr) 1,000 mls @ 100 mls/hr IVCONT .Q10H [facility] Last Admin: 04/11/21 03:31 Dose: 100 mls/hr Documented by: KENNETH Metronidazole (Flagyl) 500 mg in 100 mls @ 100 mls/hr IV Q8H [facility] Last Infusion: 04/11/21 05:02 Dose: 0 mls/hr Documented by: KENNETH Metoprolol Succinate (Metoprolol Succinate Er 12.5 Mg Halftab.Er.24h) 12.5 mg PO TID [facility]; Protocol Last Admin: 04/10/21 22:18 Dose: 12.5 mg Documented by: VINCE Pharmacy Consult (Consult Rx Perform Med Rec) 1 each MISCELLANE ONCE PRN PRN Reason: Consult order Sodium Chloride (0.9 % Sodium Chloride Flush 3 Ml Syringe) 3 ml IVFLUSH QSHIFT [facility] Last Admin: 04/11/21 02:12 Dose: Not Given Documented by: KENNETH Non-Admin Reason: IV Running Labs CBC & Chem 7: 04/12/21 06:27 04/12/21 06:27 Labs: Laboratory Results - last 24 hr 04/10/21 04/10/21 04/10/21 13:44 13:44 13:44 MCV 95.0 MCH 32.5 MCHC 34.2 RDW 14.8 Plt Count 193 MPV 11.6 Immature Gran % (Auto) 0.5 H Neut % (Auto) 52.6 Lymph % (Auto) 7.8 L [place] % (Auto) 4.0 Eos % (Auto) 34.9 H Baso % (Auto) 0.2 Lymph # (Auto) 1.4 [place] # (Auto) 0.7 Eos # (Auto) 6.1 H Baso # (Auto) 0.0 Abs Immat Gran (auto) 0.08 H Absolute Neuts (auto) 9.2 H Absolute Nucleated RBC 0.000 Nucleated RBC % (auto) 0.0 Smear Tech's Comments VERIFIED Anion Gap 11 L Estim Creat Clear Calc 38.2 Estimated GFR 38 Random Glucose 112 Lactic Acid Calcium 8.5 D Magnesium 2.0 Total Bilirubin 0.5 Direct Bilirubin 0.2 AST 14 ALT 11 Alkaline Phosphatase 116 D Total Protein 6.0 L Albumin 3.1 L D Lipase 19 Stool Occult Blood COVID-19 (MIS) Negative COVID-19 Clin Com See Note 04/10/21 04/10/21 04/11/21 13:44 16:19 07:09 MCV 96.5 MCH 32.9 MCHC 34.1 RDW 15.2 Plt Count 167 MPV 11.2 Immature Gran % (Auto) Neut % (Auto) Lymph % (Auto) [place] % (Auto) Eos % (Auto) Baso % (Auto) Lymph # (Auto) [place] # (Auto) Eos # (Auto) Baso # (Auto) Abs Immat Gran (auto) Absolute Neuts (auto) Absolute Nucleated RBC 0.000 Nucleated RBC % (auto) 0.0 Smear Tech's Comments Anion Gap Estim Creat Clear Calc Estimated GFR Random Glucose Lactic Acid 1.2 Calcium Magnesium Total Bilirubin Direct Bilirubin AST ALT Alkaline Phosphatase Total Protein Albumin Lipase Stool Occult Blood POSITIVE COVID-19 (MIS) COVID-19 Clin Com 04/11/21 07:09 MCV MCH MCHC RDW Plt Count MPV Immature Gran % (Auto) Neut % (Auto) Lymph % (Auto) [place] % (Auto) Eos % (Auto) Baso % (Auto) Lymph # (Auto) [place] # (Auto) Eos # (Auto) Baso # (Auto) Abs Immat Gran (auto) Absolute Neuts (auto) Absolute Nucleated RBC Nucleated RBC % (auto) Smear Tech's Comments Anion Gap 8 L Estim Creat Clear Calc 43.3 Estimated GFR 44 Random Glucose 91 Lactic Acid Calcium 8.2 L Magnesium Total Bilirubin Direct Bilirubin AST ALT Alkaline Phosphatase Total Protein Albumin Lipase Stool Occult Blood COVID-19 (MIS) COVID-19 Clin Com Procedures Date of Service Date of Service: 04/11/21 Progress Note: A&P Assessment and plan (1) Pneumatosis coli: Status: Acute Assessment and Plan: abdl exam remains very benign denies any abdl pain diarrhea almost resolved pt asking for food looks well no fever does not appear toxic occult blood positive - likely from diarrhea stool C diff ordered Pneumatosis likely from inflammatory process, nonsurgical/benign Fall Risk Details Current Medications: Current Medications Amiodarone HCl (Amiodarone Hcl 200 Mg Tablet) 200 mg PO DAILY [facility] Heparin Sodium (Porcine) (Heparin Sodium,Porcine 5,000 Unit/Ml Vial) 5,000 unit SUBCUT Q12H [facility] Levofloxacin (Levaquin) 750 mg in 150 mls @ 100 mls/hr IV Q48H [facility] Last Infusion: 04/10/21 21:06 Dose: Infused Documented by: Lactated Ringer's (Lr) 1,000 mls @ 100 mls/hr IVCONT .Q10H [facility] Last Admin: 04/11/21 03:31 Dose: 100 mls/hr Documented by: Metronidazole (Flagyl) 500 mg in 100 mls @ 100 mls/hr IV Q8H [facility] Last Infusion: 04/11/21 05:02 Dose: Infused Documented by: Metoprolol Succinate (Metoprolol Succinate Er 12.5 Mg Halftab.Er.24h) 12.5 mg PO TID [facility]; Protocol Last Admin: 04/10/21 22:18 Dose: 12.5 mg Documented by: Pharmacy Consult (Consult Rx Perform Med Rec) 1 each MISCELLANE ONCE PRN PRN Reason: Consult order Sodium Chloride (0.9 % Sodium Chloride Flush 3 Ml Syringe) 3 ml IVFLUSH QSHIFT [facility] Last Admin: 04/11/21 02:12 Dose: Not Given Documented by: Time Spent With Patient Time: Total time spent is greater than 50% in coordination of care (as documented) at patient's floor/unit and/or counseling patient: Time with patient: 15 - 24 minutes Quality Stroke Does the patient have a stroke diagnosis?: No VTE Prior VTE?: No VTE Risk Level:: Medical - moderate - high VTE Device Contraindication: N/A - Device Ordered VTE Drug Contraindication: N/A - Med Ordered
--- NOTE | 2021-04-11 09:09 | MHC.CM.PN ---
IMM 04/11/21, EMR REVIEWED, PT ADMITTED W/DIARRHEA X 2WKS, CM MET W/PT WHO IS A&OX3, PT REPORTS HE LIVES AT [facility], PT HAS GRAB BARS IN AND A WHEELED WALKER, PT REPORTS HE HAS A HOME HH AIDE EVERY /SAT TO ASSIST W/SHOWERING, MEALS ARE PROVIDED AND PT HAS A CLEANING LADY FROM [facility]. PT VERIFIES PCP MEREDITH FERGUSON, REPORTS HE RECEIVED 2 COVID VACCINES AND BOOSTER HOWEVER DOES NOT REMEMBER IF IT WAS MODERNA OR PFIZER AND PT REPORTS HE RECEIVED IT AT [facility]. HCP ON FILE FROM PREVIOUS VISIT. D/C PLAN: RETURN TO [facility]. FRIEND WANDER FOR TRANSPORT
[2021-04-11] MEDS: Metoprolol Succinate ER 12.5 MG HALFTAB.ER.24H PO ×3 (10:07→21:04)
[2021-04-11] MEDS: Heparin Sodium,Porcine 5,000 UNIT/ML VIAL 5000 UNIT SUBCUT ×2 (10:07→21:04)
[2021-04-11] MEDS: Amiodarone HCL 200 MG TABLET PO (10:07)
[2021-04-11 10:39] VITALS: BP 142/79; PULSE 65; RESP 18; O2SAT 98
--- NOTE | 2021-04-11 13:45 | HO.PM.IMPN ---
Subjective Subjective Date of Service: 04/11/21 Interval History: cc: diarrhea interval hsitory: feels good, still with some watery stools Cardiovascular Cardiovascular: Reports no additional cardiovascular complaints Respiratory Respiratory: Reports no additional respiratory complaints Physical Exam Vital Signs: Vital Signs: Last Vital Signs Temp 98.2 F 04/10/21 22:05 Pulse 65 04/11/21 10:39 Resp 18 04/11/21 10:39 BP 142/79 H 04/11/21 10:39 Pulse Ox 98 04/11/21 10:39 BMI result Body Mass Index 30.7 General: AO X 3, no acute distress Resp: CTA bilateral, no accessory muscles used CVS: S1,S2,RRR GI: soft, non tender, non distended Neuro: motor grossly intact, alert Psych: appropriate affect, appropriate insight Objective Data Active Medications Amiodarone HCl (Amiodarone Hcl 200 Mg Tablet) 200 mg PO DAILY [facility] Last Admin: 04/11/21 10:07 Dose: 200 mg Documented by: MONICA Heparin Sodium (Porcine) (Heparin Sodium,Porcine 5,000 Unit/Ml Vial) 5,000 unit SUBCUT Q12H [facility] Last Admin: 04/11/21 10:07 Dose: 5,000 unit Documented by: MONICA Levofloxacin (Levaquin) 750 mg in 150 mls @ 100 mls/hr IV Q48H [facility] Last Infusion: 04/10/21 21:06 Dose: 0 mls/hr Documented by: OMA Lactated Ringer's (Lr) 1,000 mls @ 100 mls/hr IVCONT .Q10H [facility] Last Admin: 04/11/21 10:08 Dose: 100 mls/hr Documented by: MONICA Metronidazole (Flagyl) 500 mg in 100 mls @ 100 mls/hr IV Q8H [facility] Last Infusion: 04/11/21 11:21 Dose: 0 mls/hr Documented by: MONICA Levothyroxine Sodium (Levothyroxine Sodium 25 Mcg Tablet) 25 mcg PO DAILY [facility] Metoprolol Succinate (Metoprolol Succinate Er 12.5 Mg Halftab.Er.24h) 12.5 mg PO TID [facility]; Protocol Last Admin: 04/11/21 10:07 Dose: 12.5 mg Documented by: MONICA Pharmacy Consult (Consult Rx Perform Med Rec) 1 each MISCELLANE ONCE PRN PRN Reason: Consult order Sodium Chloride (0.9 % Sodium Chloride Flush 3 Ml Syringe) 3 ml IVFLUSH QSHIFT [facility] Last Admin: 04/11/21 10:06 Dose: Not Given Documented by: MONICA Non-Admin Reason: IV Running Labs CBC & Chem 7: 04/11/21 07:09 04/11/21 07:09 Labs: Laboratory Results - last 24 hr 04/10/21 04/10/21 04/10/21 13:44 13:44 13:44 MCV 95.0 MCH 32.5 MCHC 34.2 RDW 14.8 Plt Count 193 MPV 11.6 Immature Gran % (Auto) 0.5 H Neut % (Auto) 52.6 Lymph % (Auto) 7.8 L [place] % (Auto) 4.0 Eos % (Auto) 34.9 H Baso % (Auto) 0.2 Lymph # (Auto) 1.4 [place] # (Auto) 0.7 Eos # (Auto) 6.1 H Baso # (Auto) 0.0 Abs Immat Gran (auto) 0.08 H Absolute Neuts (auto) 9.2 H Absolute Nucleated RBC 0.000 Nucleated RBC % (auto) 0.0 Smear Tech's Comments VERIFIED Anion Gap 11 L Creatinine 1.70 H Estim Creat Clear Calc 38.2 Estimated GFR 38 Random Glucose 112 Lactic Acid Calcium 8.5 D Magnesium 2.0 Total Bilirubin 0.5 Direct Bilirubin 0.2 AST 14 ALT 11 Alkaline Phosphatase 116 D Total Protein 6.0 L Albumin 3.1 L D Lipase 19 Stool Occult Blood COVID-19 (MIS) Negative COVID-19 Clin Com See Note 04/10/21 04/10/21 04/11/21 13:44 16:19 07:09 MCV 96.5 MCH 32.9 MCHC 34.1 RDW 15.2 Plt Count 167 MPV 11.2 Immature Gran % (Auto) Neut % (Auto) Lymph % (Auto) [place] % (Auto) Eos % (Auto) Baso % (Auto) Lymph # (Auto) [place] # (Auto) Eos # (Auto) Baso # (Auto) Abs Immat Gran (auto) Absolute Neuts (auto) Absolute Nucleated RBC 0.000 Nucleated RBC % (auto) 0.0 Smear Tech's Comments Anion Gap Creatinine Estim Creat Clear Calc Estimated GFR Random Glucose Lactic Acid 1.2 Calcium Magnesium Total Bilirubin Direct Bilirubin AST ALT Alkaline Phosphatase Total Protein Albumin Lipase Stool Occult Blood POSITIVE COVID-19 (MIS) COVID-19 Clin Com 04/11/21 07:09 MCV MCH MCHC RDW Plt Count MPV Immature Gran % (Auto) Neut % (Auto) Lymph % (Auto) [place] % (Auto) Eos % (Auto) Baso % (Auto) Lymph # (Auto) [place] # (Auto) Eos # (Auto) Baso # (Auto) Abs Immat Gran (auto) Absolute Neuts (auto) Absolute Nucleated RBC Nucleated RBC % (auto) Smear Tech's Comments Anion Gap 8 L Creatinine 1.50 H Estim Creat Clear Calc 43.3 Estimated GFR 44 Random Glucose 91 Lactic Acid Calcium 8.2 L Magnesium Total Bilirubin Direct Bilirubin AST ALT Alkaline Phosphatase Total Protein Albumin Lipase Stool Occult Blood COVID-19 (MIS) COVID-19 Clin Com Assessment and Plan (1) Atrial flutter: Status: Acute Assessment and Plan: 86M presented with diarrhea, found to have pnueomatosis coli. pneuomatosis coli management per surgery paroxysmal Aflutter ?continue metoprolol, amio restart eliquis when okay from surgical perspective HTN metoprolol, lisinopril HFrEF metoprolol, lisinopril recent echo shows mostly recovered EF has ICD hypothyroid synthroid CKD III stable monitor Quality Stroke Does the patient have a stroke diagnosis?: No VTE Prior VTE?: No VTE Risk Level:: Medical - moderate - high VTE Device Contraindication: N/A - Device Ordered VTE Drug Contraindication: N/A - Med Ordered
--- NOTE | 2021-04-11 15:21 | PM.EVENT ---
Event Note Date of Service: 04/11/21 Event Note: Seen on afternoon rounds Remains comfortable Diarrhea much improved Abdomen remained soft Vital signs stable Looks well Repeat labs tomorrow Full liquids tonight
[2021-04-11 16:24] VITALS: BP 155/77; PULSE 74; RESP 18; TEMP 36.9; O2SAT 96
[2021-04-11] MEDS: 0.9 % Sodium Chloride Flush 3 ML SYRINGE IVFLUSH (16:28)
[2021-04-11 19:13] VITALS: BP 135/98; PULSE 70; RESP 18; TEMP 36.3; O2SAT 96
--- NOTE | 2021-04-11 19:31 | PC.NURSE ---
Pt alert and oriented x4, calm and cooperative, noted to be hard of hearing baseline per pt. Pt remains on clear liquids diet, tolerated well, denies N/V/D. IV intact. Vitals stable. Pt restign in stretcher without issues. Will continue to monitor.
[2021-04-12 01:27] VITALS: BP 136/88; PULSE 96; RESP 16; TEMP 36.7; O2SAT 98
[2021-04-12] MEDS: Lactated Ringers 1,000 ML 60 ML IVCONT ×2 (02:09→20:19)
[2021-04-12] MEDS: metroNIDAZOLE/NS 500 MG/100 ML PIGGYBACK 100 MG IV ×3 (02:41→20:18)
[2021-04-12] MEDS: Levothyroxine Sodium 25 MCG TABLET PO (05:31)
[2021-04-12 06:16] VITALS: BP 128/80; PULSE 94; RESP 14; TEMP 36.6; O2SAT 94
[2021-04-12 07:03] LABS: Hematocrit 32.3 % (42.0-52.0); Hemoglobin 11.3 g/dl (14.0-18.0); Mean Corpuscular Hemoglobin 33.3 pg (27.0-33.0); Mean Corpuscular Volume 95.3 fL (80.0-98.0); Mean Platelet Volume 11.4 fL (9.4-12.4); Platelet Count 164 X10*3/uL (160-400); Red Blood Count 3.39 X10*6/uL (4.60-5.80); Red Cell Distribution Width 15.1 % (11.0-16.0); White Blood Count 12.2 X10*3/uL (4.8-10.8)
[2021-04-12 07:33] LABS: Anion Gap 10 (12-20); Blood Urea Nitrogen 14 mg/dL (9-16); Calcium 8.2 mg/dL (8.4-10.2); Carbon Dioxide 22 mmol/L (22-29); Chloride 111 mmol/L (96-108); Creatinine Clr Calc Pharmacy 48.1; Estimated Glomerular Filt Rate 50; Glucose Fasting 92 mg/dL (60-99); Potassium 3.5 mmol/L (3.3-5.1); Sodium 139 mmol/L (135-145)
--- NOTE | 2021-04-12 08:11 | PM.PNGS ---
Subjective Subjective Date of Service: 04/12/21 Interval history: Says he feels well Diarrhea resolved Tolerating clear liquids Wants to try food Denies abdominal pain Physical Exam Vital Signs: Vital Signs: Last Vital Signs Temp 97.9 F 04/12/21 06:16 Pulse 94 04/12/21 06:16 Resp 14 04/12/21 06:16 BP 128/80 04/12/21 06:16 Pulse Ox 94 04/12/21 06:16 BMI result Body Mass Index 30.7 Const: General: comfortable and no acute distress Resp: Effort & Inspection: normal respiratory effort Cardio: Rate: regular rate GI: Palpation (GI): Soft to palpation, not firm, nontender and no guarding Objective Data Active Medications Amiodarone HCl (Amiodarone Hcl 200 Mg Tablet) 200 mg PO DAILY [facility] Last Admin: 04/11/21 10:07 Dose: 200 mg Documented by: MONICA Heparin Sodium (Porcine) (Heparin Sodium,Porcine 5,000 Unit/Ml Vial) 5,000 unit SUBCUT Q12H [facility] Last Admin: 04/11/21 21:04 Dose: 5,000 unit Documented by: TAMIKA Levofloxacin (Levaquin) 750 mg in 150 mls @ 100 mls/hr IV Q48H [facility] Last Infusion: 04/10/21 21:06 Dose: 0 mls/hr Documented by: OMA Lactated Ringer's (Lr) 1,000 mls @ 60 mls/hr IVCONT .[id number] [facility] Last Admin: 04/12/21 02:09 Dose: 60 mls/hr Documented by: PARDEEP Metronidazole (Flagyl) 500 mg in 100 mls @ 100 mls/hr IV Q8H [facility] Last Infusion: 04/12/21 03:42 Dose: 0 mls/hr Documented by: PARDEEP Levothyroxine Sodium (Levothyroxine Sodium 25 Mcg Tablet) 25 mcg PO DAILY@0600 [facility] Last Admin: 04/12/21 05:31 Dose: 25 mcg Documented by: PARDEEP Lisinopril (Lisinopril 2.5 Mg Tablet) 2.5 mg PO DAILY [facility]; Protocol Metoprolol Succinate (Metoprolol Succinate Er 12.5 Mg Halftab.Er.24h) 12.5 mg PO TID [facility]; Protocol Last Admin: 04/11/21 21:04 Dose: 12.5 mg Documented by: TAMIKA Pharmacy Consult (Consult Rx Perform Med Rec) 1 each MISCELLANE ONCE PRN PRN Reason: Consult order Sodium Chloride (0.9 % Sodium Chloride Flush 3 Ml Syringe) 3 ml IVFLUSH QSHIFT [facility] Last Admin: 04/11/21 23:27 Dose: Not Given Documented by: TAMIKA Non-Admin Reason: IV Running Labs CBC & Chem 7: 04/12/21 06:27 04/12/21 06:27 Labs: Laboratory Results - last 24 hr 04/12/21 04/12/21 06:27 06:27 MCV 95.3 MCH 33.3 H MCHC 35.0 RDW 15.1 Plt Count 164 MPV 11.4 Absolute Nucleated RBC 0.000 Nucleated RBC % (auto) 0.0 Anion Gap 10 L Estim Creat Clear Calc 48.1 Estimated GFR 50 Random Glucose TNP Fasting Glucose 92 Calcium 8.2 L Microbiology Microbiology Results: Microbiology 04/10/21 13:45 Blood Culture - Preliminary Blood - Venous No growth after 24 hours. 04/10/21 13:44 Blood Culture - Preliminary Blood - Venous No growth after 24 hours. Procedures Date of Service Date of Service: 04/12/21 Progress Note: A&P Assessment and plan (1) Pneumatosis coli: Status: Acute Assessment and Plan: Pneumatosis of the rectosigmoid with very benign presentation No abdominal pain Diarrhea has resolved I have reviewed CT with the radiologist Dr. Kim- no inflammatory process despite pneumatosis, no free fluid May be infectious/inflammatory etiology WBC now near normal Creatinine much improved No acidosis Plan to advance to regular diet today I had a long discussion patient about the above He did say that he has a DNR DNI in effect and that he does not want any further major surgical intervention Discussed with his significant other Suzanne South [phone] Fall Risk Details Current Medications: Current Medications Amiodarone HCl (Amiodarone Hcl 200 Mg Tablet) 200 mg PO DAILY [facility] Last Admin: 04/11/21 10:07 Dose: 200 mg Documented by: Heparin Sodium (Porcine) (Heparin Sodium,Porcine 5,000 Unit/Ml Vial) 5,000 unit SUBCUT Q12H [facility] Last Admin: 04/11/21 21:04 Dose: 5,000 unit Documented by: Levofloxacin (Levaquin) 750 mg in 150 mls @ 100 mls/hr IV Q48H [facility] Last Infusion: 04/10/21 21:06 Dose: Infused Documented by: Lactated Ringer's (Lr) 1,000 mls @ 60 mls/hr IVCONT .[id number] [facility] Last Admin: 04/12/21 02:09 Dose: 60 mls/hr Documented by: Metronidazole (Flagyl) 500 mg in 100 mls @ 100 mls/hr IV Q8H [facility] Last Infusion: 04/12/21 03:42 Dose: Infused Documented by: Levothyroxine Sodium (Levothyroxine Sodium 25 Mcg Tablet) 25 mcg PO DAILY@0600 [facility] Last Admin: 04/12/21 05:31 Dose: 25 mcg Documented by: Lisinopril (Lisinopril 2.5 Mg Tablet) 2.5 mg PO DAILY [facility]; Protocol Metoprolol Succinate (Metoprolol Succinate Er 12.5 Mg Halftab.Er.24h) 12.5 mg PO TID [facility]; Protocol Last Admin: 04/11/21 21:04 Dose: 12.5 mg Documented by: Pharmacy Consult (Consult Rx Perform Med Rec) 1 each MISCELLANE ONCE PRN PRN Reason: Consult order Sodium Chloride (0.9 % Sodium Chloride Flush 3 Ml Syringe) 3 ml IVFLUSH QSHIFT [facility] Last Admin: 04/11/21 23:27 Dose: Not Given Documented by: Time Spent With Patient Time: Total time spent is greater than 50% in coordination of care (as documented) at patient's floor/unit and/or counseling patient: Time with patient: 15 - 24 minutes Quality Stroke Does the patient have a stroke diagnosis?: No VTE Prior VTE?: No VTE Risk Level:: Medical - moderate - high VTE Device Contraindication: N/A - Device Ordered VTE Drug Contraindication: N/A - Med Ordered
[2021-04-12 09:48] VITALS: BP 119/74; PULSE 74; RESP 18; TEMP 36.5; O2SAT 95
[2021-04-12] MEDS: lisinopriL 2.5 MG TABLET PO (10:10)
[2021-04-12] MEDS: Amiodarone HCL 200 MG TABLET PO (10:10)
[2021-04-12] MEDS: Metoprolol Succinate ER 12.5 MG HALFTAB.ER.24H PO ×2 (10:10→18:14)
[2021-04-12] MEDS: Heparin Sodium,Porcine 5,000 UNIT/ML VIAL 5000 UNIT SUBCUT ×2 (10:10→20:20)
--- NOTE | 2021-04-12 10:11 | PC.NURSE ---
Pt received from shift supervisor rn: [id number] but slightly TEJON. Heart sounds normal and lungs clear. Pt abd soft and non-tender. Pt offers no complaints at this time.
--- NOTE | 2021-04-12 11:11 | P.PNIM_ITS ---
Subjective Subjective Date of Service: 04/12/21 Interval History: cc: diarrhea interval hsitory: feels good, no diarrhea today Cardiovascular Cardiovascular: Reports no additional cardiovascular complaints Respiratory Respiratory: Reports no additional respiratory complaints Physical Exam Vital Signs: Vital Signs: Last Vital Signs Temp 97.7 F 04/12/21 09:48 Pulse 74 04/12/21 09:48 Resp 18 04/12/21 09:48 BP 119/74 04/12/21 09:48 Pulse Ox 95 04/12/21 09:48 BMI result Body Mass Index 30.7 General: AO X 3, no acute distress Resp:? CTA bilateral, no accessory muscles used CVS: S1,S2,RRR GI: soft, non tender, non distended Neuro:? motor grossly intact, alert Psych: appropriate affect, appropriate insight? Objective Data Active Medications Amiodarone HCl (Amiodarone Hcl 200 Mg Tablet) 200 mg PO DAILY [facility] Last Admin: 04/12/21 10:10 Dose: 200 mg Documented by: CHIDI Heparin Sodium (Porcine) (Heparin Sodium,Porcine 5,000 Unit/Ml Vial) 5,000 unit SUBCUT Q12H [facility] Last Admin: 04/12/21 10:10 Dose: 5,000 unit Documented by: CHIDI Levofloxacin (Levaquin) 750 mg in 150 mls @ 100 mls/hr IV Q48H [facility] Last Infusion: 04/10/21 21:06 Dose: 0 mls/hr Documented by: OMA Lactated Ringer's (Lr) 1,000 mls @ 60 mls/hr IVCONT .[id number] [facility] Last Admin: 04/12/21 02:09 Dose: 60 mls/hr Documented by: PARDEEP Metronidazole (Flagyl) 500 mg in 100 mls @ 100 mls/hr IV Q8H [facility] Last Admin: 04/12/21 10:10 Dose: 100 mls/hr Documented by: CHIDI Levothyroxine Sodium (Levothyroxine Sodium 25 Mcg Tablet) 25 mcg PO DAILY@0600 [facility] Last Admin: 04/12/21 05:31 Dose: 25 mcg Documented by: PARDEEP Lisinopril (Lisinopril 2.5 Mg Tablet) 2.5 mg PO DAILY [facility]; Protocol Last Admin: 04/12/21 10:10 Dose: 2.5 mg Documented by: CHIDI Metoprolol Succinate (Metoprolol Succinate Er 12.5 Mg Halftab.Er.24h) 12.5 mg PO TID [facility]; Protocol Last Admin: 04/12/21 10:10 Dose: 12.5 mg Documented by: CHIDI Pharmacy Consult (Consult Rx Perform Med Rec) 1 each MISCELLANE ONCE PRN PRN Reason: Consult order Sodium Chloride (0.9 % Sodium Chloride Flush 3 Ml Syringe) 3 ml IVFLUSH QSHIFT [facility] Last Admin: 04/12/21 09:42 Dose: Not Given Documented by: CHIDI Non-Admin Reason: Med Not Available Labs CBC & Chem 7: 04/12/21 06:27 04/12/21 06:27 Labs: Laboratory Results - last 24 hr 04/12/21 04/12/21 06:27 06:27 MCV 95.3 MCH 33.3 H MCHC 35.0 RDW 15.1 Plt Count 164 MPV 11.4 Absolute Nucleated RBC 0.000 Nucleated RBC % (auto) 0.0 Anion Gap 10 L Estim Creat Clear Calc 48.1 Estimated GFR 50 Random Glucose TNP Fasting Glucose 92 Calcium 8.2 L Microbiology Microbiology Results: Microbiology 04/10/21 13:45 Blood Culture - Preliminary Blood - Venous No growth after 24 hours. 04/10/21 13:44 Blood Culture - Preliminary Blood - Venous No growth after 24 hours. Assessment and Plan (1) Atrial flutter: Status: Acute Assessment and Plan: 86M presented with diarrhea, found to have pnueomatosis coli. pneuomatosis coli management per surgery paroxysmal Aflutter ?continue metoprolol, amio would restart eliquis if no plans for surgery HTN metoprolol, lisinopril HFrEF metoprolol, lisinopril recent echo shows mostly recovered EF has ICD hypothyroid synthroid leidy on CKD III resolved Quality Stroke Does the patient have a stroke diagnosis?: No VTE Prior VTE?: No VTE Risk Level:: Medical - moderate - high VTE Device Contraindication: N/A - Device Ordered VTE Drug Contraindication: N/A - Med Ordered
[2021-04-12 16:00] VITALS: PULSE 64; RESP 17; TEMP 36.1; O2SAT 96
[2021-04-12] MEDS: 0.9 % Sodium Chloride Flush 3 ML SYRINGE IVFLUSH (18:15)
[2021-04-12] MEDS: levoFLOXacin/D5W 750 MG/150 ML PIGGYBACK 100 MG IV (18:15)
[2021-04-12 19:37] VITALS: BP 144/85; PULSE 63; RESP 18; TEMP 36.4; O2SAT 96
[2021-04-12 23:45] VITALS: BP 156/98; PULSE 81; RESP 16; TEMP 36.9; O2SAT 95
[2021-04-13] MEDS: metroNIDAZOLE/NS 500 MG/100 ML PIGGYBACK 100 MG IV (03:45)
[2021-04-13 05:34] LABS: Hematocrit 33.8 % (42.0-52.0); Hemoglobin 11.4 g/dl (14.0-18.0); Mean Corpuscular HGB Conc 33.7 g/dl (31.0-36.0); Mean Corpuscular Hemoglobin 31.9 pg (27.0-33.0); Mean Corpuscular Volume 94.7 fL (80.0-98.0); Mean Platelet Volume 11.4 fL (9.4-12.4); Platelet Count 159 X10*3/uL (160-400); Red Blood Count 3.57 X10*6/uL (4.60-5.80); Red Cell Distribution Width 14.7 % (11.0-16.0); White Blood Count 7.2 X10*3/uL (4.8-10.8)
[2021-04-13 05:55] LABS: Anion Gap 13 (12-20); Blood Urea Nitrogen 10 mg/dL (9-16); Carbon Dioxide 22 mmol/L (22-29); Chloride 108 mmol/L (96-108); Estimated Glomerular Filt Rate 55; Glucose Random 89 mg/dL (60-115); Potassium 3.5 mmol/L (3.3-5.1); Sodium 139 mmol/L (135-145)
[2021-04-13] MEDS: Levothyroxine Sodium 25 MCG TABLET PO (06:04)
[2021-04-13 07:15] VITALS: BP 155/83; PULSE 60; RESP 18; TEMP 36.4; O2SAT 98
[2021-04-13] MEDS: Metoprolol Succinate ER 12.5 MG HALFTAB.ER.24H PO (07:33)
[2021-04-13] MEDS: lisinopriL 2.5 MG TABLET PO (07:33)
[2021-04-13] MEDS: Amiodarone HCL 200 MG TABLET PO (07:33)
--- NOTE | 2021-04-13 10:04 | P.PNGS_ITS ---
Subjective Subjective Date of Service: 04/13/21 Interval history: Feels well Denies complaints Tolerating diet No diarrhea No abdominal pain Says he is in forward to going back to assisted living Physical Exam Vital Signs: Vital Signs: Last Vital Signs Temp 97.6 F 04/13/21 07:15 Pulse 60 04/13/21 07:15 Resp 18 04/13/21 07:15 BP 155/83 H 04/13/21 07:15 Pulse Ox 98 04/13/21 07:15 BMI result Body Mass Index 30.7 Const: General: comfortable and no acute distress Resp: Effort & Inspection: normal respiratory effort Cardio: Rhythm: abnormal rhythm GI: Palpation (GI): Soft to palpation, not firm, nontender and no guarding Objective Data Active Medications Amiodarone HCl (Amiodarone Hcl 200 Mg Tablet) 200 mg PO DAILY [facility] Last Admin: 04/13/21 07:33 Dose: 200 mg Documented by: KAT Heparin Sodium (Porcine) (Heparin Sodium,Porcine 5,000 Unit/Ml Vial) 5,000 unit SUBCUT Q12H [facility] Last Admin: 04/12/21 20:20 Dose: 5,000 unit Documented by: CARLOTA Levofloxacin (Levaquin) 750 mg in 150 mls @ 100 mls/hr IV Q48H [facility] Last Infusion: 04/12/21 20:02 Dose: 0 mls/hr Documented by: CARLOTA Lactated Ringer's (Lr) 1,000 mls @ 60 mls/hr IVCONT .[id number] [facility] Last Infusion: 04/13/21 04:53 Dose: 60 mls/hr Documented by: ZAIN Metronidazole (Flagyl) 500 mg in 100 mls @ 100 mls/hr IV Q8H [facility] Last Infusion: 04/13/21 04:53 Dose: 0 mls/hr Documented by: ZAIN Levothyroxine Sodium (Levothyroxine Sodium 25 Mcg Tablet) 25 mcg PO DAILY@0600 [facility] Last Admin: 04/13/21 06:04 Dose: 25 mcg Documented by: ZAIN Lisinopril (Lisinopril 2.5 Mg Tablet) 2.5 mg PO DAILY [facility]; Protocol Last Admin: 04/13/21 07:33 Dose: 2.5 mg Documented by: HO.DABA Metoprolol Succinate (Metoprolol Succinate Er 12.5 Mg Halftab.Er.24h) 12.5 mg PO TID [facility]; Protocol Last Admin: 04/13/21 07:33 Dose: 12.5 mg Documented by: KAT Pharmacy Consult (Consult Rx Perform Med Rec) 1 each MISCELLANE ONCE PRN PRN Reason: Consult order Sodium Chloride (0.9 % Sodium Chloride Flush 3 Ml Syringe) 3 ml IVFLUSH QSHIFT [facility] Last Admin: 04/13/21 07:07 Dose: Not Given Documented by: KAT Non-Admin Reason: IV Running Labs CBC & Chem 7: 04/13/21 04:56 04/13/21 04:56 Labs: Laboratory Results - last 24 hr 04/13/21 04/13/21 04:56 04:56 MCV 94.7 MCH 31.9 MCHC 33.7 RDW 14.7 Plt Count 159 L MPV 11.4 Absolute Nucleated RBC 0.000 Nucleated RBC % (auto) 0.0 Anion Gap 13 Estim Creat Clear Calc 52.0 Estimated GFR 55 Random Glucose 89 Calcium 8.0 L Microbiology Microbiology Results: Microbiology 04/10/21 13:44 Blood Culture - Preliminary Blood - Venous No growth after 48 hours. 04/10/21 13:45 Blood Culture - Preliminary Blood - Venous No growth after 48 hours. Procedures Date of Service Date of Service: 04/13/21 Progress Note: A&P Assessment and plan (1) Diarrhea: Status: Acute Assessment and Plan: No abdominal pain Diarrhea has resolved Exact etiology unknown He has not given a sample for stool C diff as he had stated that he has had no diarrhea in the hospital Does not want to wait for further stool studies Wants to be discharged WBC normal Looks well Will DC home Patient again stated that he does not want any surgical intervention and that DNR DNI is in affect (2) Pneumatosis coli: Status: Acute Assessment and Plan: Benign pneumatosis, possibly infectious ? Completely asymptomatic Fall Risk Details Current Medications: Current Medications Amiodarone HCl (Amiodarone Hcl 200 Mg Tablet) 200 mg PO DAILY [facility] Last Admin: 04/13/21 07:33 Dose: 200 mg Documented by: Heparin Sodium (Porcine) (Heparin Sodium,Porcine 5,000 Unit/Ml Vial) 5,000 unit SUBCUT Q12H [facility] Last Admin: 04/12/21 20:20 Dose: 5,000 unit Documented by: Levofloxacin (Levaquin) 750 mg in 150 mls @ 100 mls/hr IV Q48H [facility] Last Infusion: 04/12/21 20:02 Dose: Infused Documented by: Lactated Ringer's (Lr) 1,000 mls @ 60 mls/hr IVCONT .[id number] [facility] Last Infusion: 04/13/21 04:53 Dose: 60 mls/hr Documented by: Metronidazole (Flagyl) 500 mg in 100 mls @ 100 mls/hr IV Q8H [facility] Last Infusion: 04/13/21 04:53 Dose: Infused Documented by: Levothyroxine Sodium (Levothyroxine Sodium 25 Mcg Tablet) 25 mcg PO DAILY@0600 [facility] Last Admin: 04/13/21 06:04 Dose: 25 mcg Documented by: Lisinopril (Lisinopril 2.5 Mg Tablet) 2.5 mg PO DAILY [facility]; Protocol Last Admin: 04/13/21 07:33 Dose: 2.5 mg Documented by: Metoprolol Succinate (Metoprolol Succinate Er 12.5 Mg Halftab.Er.24h) 12.5 mg PO TID [facility]; Protocol Last Admin: 04/13/21 07:33 Dose: 12.5 mg Documented by: Pharmacy Consult (Consult Rx Perform Med Rec) 1 each MISCELLANE ONCE PRN PRN Reason: Consult order Sodium Chloride (0.9 % Sodium Chloride Flush 3 Ml Syringe) 3 ml IVFLUSH QSHIFT [facility] Last Admin: 04/13/21 07:07 Dose: Not Given Documented by: Time Spent With Patient Time: Total time spent is greater than 50% in coordination of care (as alize bello) at patient's floor/unit and/or counseling patient: Time with patient: 15 - 24 minutes Quality Stroke Does the patient have a stroke diagnosis?: No VTE Prior VTE?: No VTE Risk Level:: Medical - moderate - high VTE Device Contraindication: N/A - Device Ordered VTE Drug Contraindication: N/A - Med Ordered
--- NOTE | 2021-04-13 10:41 | P.PNIM_ITS ---
Subjective Subjective Date of Service: 04/13/21 Interval History: cc: diarrhea interval hsitory: resolved, tolerating solids Cardiovascular Cardiovascular: Reports no additional cardiovascular complaints Respiratory Respiratory: Reports no additional respiratory complaints Physical Exam Vital Signs: Vital Signs: Last Vital Signs Temp 97.6 F 04/13/21 07:15 Pulse 60 04/13/21 07:15 Resp 18 04/13/21 07:15 BP 155/83 H 04/13/21 07:15 Pulse Ox 98 04/13/21 07:15 BMI result Body Mass Index 30.7 General: AO X 3, no acute distress Resp:? CTA bilateral, no accessory muscles used CVS: S1,S2,RRR GI: soft, non tender, non distended Neuro:? motor grossly intact, alert Psych: appropriate affect, appropriate insight? Objective Data Active Medications Amiodarone HCl (Amiodarone Hcl 200 Mg Tablet) 200 mg PO DAILY [facility] Last Admin: 04/13/21 07:33 Dose: 200 mg Documented by: KAT Apixaban (Apixaban 2.5 Mg Tablet) 2.5 mg PO BID [facility] Levofloxacin (Levaquin) 750 mg in 150 mls @ 100 mls/hr IV Q48H [facility] Last Infusion: 04/12/21 20:02 Dose: 0 mls/hr Documented by: CARLOTA Lactated Ringer's (Lr) 1,000 mls @ 60 mls/hr IVCONT .[id number] [facility] Last Infusion: 04/13/21 04:53 Dose: 60 mls/hr Documented by: ZAIN Metronidazole (Flagyl) 500 mg in 100 mls @ 100 mls/hr IV Q8H [facility] Last Admin: 04/13/21 10:15 Dose: Not Given Documented by: KAT Non-Admin Reason: no access pt discharged Levothyroxine Sodium (Levothyroxine Sodium 25 Mcg Tablet) 25 mcg PO DAILY@0600 [facility] Last Admin: 04/13/21 06:04 Dose: 25 mcg Documented by: ZAIN Lisinopril (Lisinopril 2.5 Mg Tablet) 2.5 mg PO DAILY [facility]; Protocol Last Admin: 04/13/21 07:33 Dose: 2.5 mg Documented by: KAT Metoprolol Succinate (Metoprolol Succinate Er 12.5 Mg Halftab.Er.24h) 12.5 mg PO TID [facility]; Protocol Last Admin: 04/13/21 07:33 Dose: 12.5 mg Documented by: KAT Pharmacy Consult (Consult Rx Perform Med Rec) 1 each MISCELLANE ONCE PRN PRN Reason: Consult order Sodium Chloride (0.9 % Sodium Chloride Flush 3 Ml Syringe) 3 ml IVFLUSH QSHIFT [facility] Last Admin: 04/13/21 07:07 Dose: Not Given Documented by: KAT Non-Admin Reason: IV Running Labs CBC & Chem 7: 04/13/21 04:56 04/13/21 04:56 Labs: Laboratory Results - last 24 hr 04/13/21 04/13/21 04:56 04:56 MCV 94.7 MCH 31.9 MCHC 33.7 RDW 14.7 Plt Count 159 L MPV 11.4 Absolute Nucleated RBC 0.000 Nucleated RBC % (auto) 0.0 Anion Gap 13 Estim Creat Clear Calc 52.0 Estimated GFR 55 Random Glucose 89 Calcium 8.0 L Microbiology Microbiology Results: Microbiology 04/10/21 13:44 Blood Culture - Preliminary Blood - Venous No growth after 48 hours. 04/10/21 13:45 Blood Culture - Preliminary Blood - Venous No growth after 48 hours. Assessment and Plan (1) Atrial flutter: Status: Acute Assessment and Plan: 86M presented with diarrhea, found to have pnueomatosis coli. pneuomatosis coli management per surgery paroxysmal Aflutter ?continue metoprolol, amio restarted eliquis HTN metoprolol, lisinopril HFrEF metoprolol, lisinopril recent echo shows mostly recovered EF has ICD hypothyroid synthroid leidy on CKD III resolved Quality Stroke Does the patient have a stroke diagnosis?: No VTE Prior VTE?: No VTE Risk Level:: Medical - moderate - high VTE Device Contraindication: N/A - Device Ordered VTE Drug Contraindication: N/A - Med Ordered
--- NOTE | 2021-04-13 11:35 | MHC.CM.PN ---
Addendum entered by Alma Rosa Earl RN 04/13/21 11:38: [employer] RECEIVED MESSAGE FROM MELY THAT PT'S FRIEND WAS HERE WITH HIS W/C TO TRANSPORT HIM HOME. CHAIR VAN CANCELLED. Original Note: PT CLEARED FOR D/C HOME W/RESUMP OF ASSISTED LIVING AND HH, PER PT HE DOES NOT HAVE A RIDE HOME AND PT SET UP W/ACTION FOR A CHAIR VAN HOME.
--- NOTE | 2021-04-13 12:48 | PM.DS ---
DS: Providers Provider Date of Service: 04/13/21 Date of admission: 04/10/21 17:57 Primary care physician: Clay Sanchez MD Attending physician on admission: Cristian Guerrero Consults: 04/10/21 18:04 Consult to Hospitalist Routine Consulting Provider: Hospitalist Reason For Exam: a fib DS: Diagnosis Discharge Diagnosis (1) Atrial flutter: Status: Acute DS: Summary Hospital Course Hospital Course: BRIEF HPI: Jr Dsouza is a 86 year old male who wa sent to the ED this morning from [facility] because of diarrhea. He says he has had diarrhea, described as multiple liquid brown stools, not bloody, 10-20 times a day for over a month now. He says that this seemed to have eased up for about 2 days, but he says the past 2 weeks at least, he has had this everyday. He denies any abdominal pain. He denies any nausea or vomiting. He says that aside from diarrhea, he actually feels well. He has no fever or chills. His CT scan showed pneumatosis in the rectum without any free air. He had leukocytosis at 17 but did not have acidosis and no elevated lactate. HOSPITAL COURSE: He was admitted to the surgical service for further treatment. He actually looked comfortable and had a very benign presentation, however he was admited in view of the pneumatosis on CT scan. Medicine consult was obtained for his medical comorbidities. His eliquis was until it was deemed that no surgical intervention was needed. Possible flex sig or colonoscopy down the line depending on his clinical course. C diff was ordered for his diarrhea. He was started on levaquin and flagyl IV. The patient had an uneventful hospital stay. He expressed the desire to avoid any surgical intervention if needed given his DNR/DNI status multiple times. He had no further diarrhea while inpatient and unfortunately C diff was unable to be obtained. He had no abdominal or rectal pain. His leukocytosis downtrended and normalized. He was advanced to a clear liquid and then solid diet. His CT scan was reviewed again with radiology and the source of pneumatosis remained unclear, possibly inflammatory versus infections. He remained clinically appearing well and his presentation continued to be benign. His eliquis was resumed. He continued to be asymptomatic and wanted to be discharged. He was discharged back to his assisted living facility on 04/13/21 in stable condition. He is to follow up with his PCP. Status at Discharge Overall status at discharge: patient is back to baseline Time Spent with Patient Time attestation: Total time spent providing and/or coordinating discharge services: Discharge coordination time: Greater than 30 minutes Quality: Stroke Does the patient have a stroke diagnosis?: No Physical Exam Vital Signs: Vital Signs: Last Vital Signs Temp 97.6 F 04/13/21 07:15 Pulse 60 04/13/21 07:15 Resp 18 04/13/21 07:15 BP 155/83 H 04/13/21 07:15 Pulse Ox 98 04/13/21 07:15 BMI result Body Mass Index 30.7 Const: General: no acute distress and alert Orientation/consciousness: patient oriented x3 GI: Inspection: No distended Palpation (GI): Soft to palpation and nontender Skin: General skin exam: no rashes or lesions noted Neuro: General: patient oriented x3 DS: Data Data Completed and Pending Labs on day of discharge: Laboratory Results - last 24 hr 04/13/21 04/13/21 04:56 04:56 WBC 7.2 RBC 3.57 L Hgb 11.4 L Hct 33.8 L MCV 94.7 MCH 31.9 MCHC 33.7 RDW 14.7 Plt Count 159 L MPV 11.4 Absolute Nucleated RBC 0.000 Nucleated RBC % (auto) 0.0 Sodium 139 Potassium 3.5 Chloride 108 Carbon Dioxide 22 Anion Gap 13 BUN 10 Creatinine 1.25 Estim Creat Clear Calc 52.0 Estimated GFR 55 Random Glucose 89 Calcium 8.0 L Preliminary micro results at discharge 04/10/21 13:44 Blood Culture - Preliminary Blood - Venous No growth after 48 hours. 04/10/21 13:45 Blood Culture - Preliminary Blood - Venous No growth after 48 hours. Discharge Plan Discharge Patient Disposition: Home, Self-Care Discharge Diagnosis: diarrhea, pneumatosis Referrals: Clay Sanchez MD [Primary Care Provider] - 1 Week Discharge Medications: Continued apixaban [Eliquis] 2.5 mg tablet 2.5 mg PO BID Qty: 180 RF: 1 amiodarone 200 mg tablet 200 mg PO DAILY 90 Days Qty: 90 RF: 1 acetaminophen 500 mg Tablet 500 mg PO BID PRN (Reason: Pain) RF: 0 levothyroxine 25 mcg tablet 1 tab PO DAILY RF: 0 cilostazol 50 mg tablet 50 mg PO BID RF: 0 lisinopril 2.5 mg tablet 2.5 mg PO DAILY RF: 0 metoprolol tartrate 25 mg tablet 12.5 mg PO TID RF: 0 Discharge Orders: Discharge Order (Routine); Ordered 04/13/21 Ordered By: Cristian Guerrero Diet: advance to usual diet Activity on Discharge: As tolerated Stand Alone Forms: Patient Portal Discharge page Care Plan Goals: continue care at assisted living restart anticoagulation Health Concerns: atrial flutter Plan of Treatment: restart meds Assessment: doing well, no acute issues at this time Discharge Date/Time: 04/13/21 11:53
== END 2021-04-13 11:53 | disposition home or self-care (01) | DRG 394 ==
LOC: HO.ED 17:45 → HO.EDOVER 18:26 → HO.S3 04-12 14:36
PROVIDERS: Internal Medicine; Physician Assistant; Admitting Provider Surgery; Emergency Provider Emergency Medicine; PCP Internal Medicine; Visit Provider Surgery
DX: K63.89 Other specified diseases of intestine (principal); I50.22 Chronic systolic (congestive) heart failure; I48.92 Unspecified atrial flutter; I13.0 Hypertensive heart and chronic kidney disease with heart failure and stage 1 through stage 4 chronic kidney disease, or unspecified chronic kidney disease; N17.9 Acute kidney failure, unspecified; E03.9 Hypothyroidism, unspecified; I48.91 Unspecified atrial fibrillation; N18.30 Chronic kidney disease, stage 3 unspecified; Z95.810 Presence of automatic (implantable) cardiac defibrillator; Z20.822 Contact with and (suspected) exposure to COVID-19; Z79.01 Long term (current) use of anticoagulants; Z79.890 Hormone replacement therapy; Z79.899 Other long term (current) drug therapy; Z66 Do not resuscitate
CPT/HCPCS: 36415; 74176; 76705; 80048; 80076; 82272; 83605; 83690; 83735; 85025; 85027; 87040; 87635; 96361; 96365; 99218; 99285; J1956

== ENCOUNTER 2021-05-12 13:37 | Emergency (ER) | payer MEDICARE, SELFPAY ==
--- NOTE | ~2021-05-12 | XR_ITS ---
EXAMINATION: AP PELVIS AND RIGHT HIP. CHEST AND RIGHT RIBS. CLINICAL INFORMATION: Pain radiating right hip fall with right rib pain. COMPARISON: None TECHNIQUE: AP pelvis one view. Right hip 2 views. Chest one view and right RIBS 2 views FINDINGS: AP PELVIS: There is mild reduction in bilateral hip joint and SI joint space with mild sclerosis of the left SI joint. No visible acute fracture or dislocation seen. There are surgical jason in the pelvis from previous intervention. There is likely right inguinal hernia repair with mesh in place. There is a large calcified density in the center of the pelvis question bladder stone. There are several phleboliths in the right pelvis. RIGHT HIP: AP and frog-leg views right hip reveal loss of right hip joint space. There are no bony erosive changes or loose bodies. The soft tissues are normal. No subchondral cystic changes. CHEST: The lungs are well-expanded and clear. The heart size and pulmonary vascularity is normal. There RIGHT RIBS: Multiple views of right rib reveal nondisplaced fracture right lateral ninth rib. XR/XR ribs RT min 3V w CXR1V IMPRESSION: Mild degenerative changes bilateral hip joints and left sacroiliitis. Postsurgical changes right inguinal region. Probable bladder calculi. Nondisplaced fracture right lateral ninth rib. The lungs are well-expanded and clear.
--- NOTE | ~2021-05-12 | XR_ITS ---
EXAMINATION: AP PELVIS AND RIGHT HIP. CHEST AND RIGHT RIBS. CLINICAL INFORMATION: Pain radiating right hip fall with right rib pain. COMPARISON: None TECHNIQUE: AP pelvis one view. Right hip 2 views. Chest one view and right RIBS 2 views FINDINGS: AP PELVIS: There is mild reduction in bilateral hip joint and SI joint space with mild sclerosis of the left SI joint. No visible acute fracture or dislocation seen. There are surgical jason in the pelvis from previous intervention. There is likely right inguinal hernia repair with mesh in place. There is a large calcified density in the center of the pelvis question bladder stone. There are several phleboliths in the right pelvis. RIGHT HIP: AP and frog-leg views right hip reveal loss of right hip joint space. There are no bony erosive changes or loose bodies. The soft tissues are normal. No subchondral cystic changes. CHEST: The lungs are well-expanded and clear. The heart size and pulmonary vascularity is normal. There RIGHT RIBS: Multiple views of right rib reveal nondisplaced fracture right lateral ninth rib. XR/XR hip RT w PEL1V IMPRESSION: Mild degenerative changes bilateral hip joints and left sacroiliitis. Postsurgical changes right inguinal region. Probable bladder calculi. Nondisplaced fracture right lateral ninth rib. The lungs are well-expanded and clear.
[2021-05-12 13:51] VITALS: BP 138/71; PULSE 57; RESP 16; TEMP 36.6; O2SAT 95; BMI 27.8
--- NOTE | 2021-05-12 14:44 | ED_ITS ---
HPI - Fall General Chief Complaint: Fall Stated Complaint: fell 2 days ago Time Seen by Provider: 05/12/21 13:54 Source: patient and EMS Mode of arrival: EMS History of Present Illness HPI Narrative: 86-year-old male with a past medical history of AFib on Eliquis, cardiomyopathy, ICD placement, ventricular tachycardia, pneumatosis, heart failure with reduced EF, BIBA from SNF c/o right sided rib and right hip/pelvic pain s/p mechanical slip and fall 2-3 days ago. patient reports use in bathroom trying to get off toilet when fell on buttock /back. States at baseline is minimally ambulatory, only takes a few steps. Reports pain worse with movement/breathing. denies head trauma/LOC, abdominal pain, nausea /vomiting, symptoms prior to fall MD complaint: fall Onset (ago): day(s) Related Data Home Medications Medication Instructions Recorded Confirmed lisinopril 2.5 mg tablet 2.5 mg PO DAILY 01/18/20 05/12/21 metoprolol tartrate 25 mg tablet 12.5 mg PO TID 01/18/20 05/12/21 acetaminophen 500 mg tablet 500 mg PO BID PRN 04/10/21 05/12/21 cilostazol 50 mg tablet 50 mg PO BID 04/10/21 05/12/21 levothyroxine 25 mcg tablet 1 tab PO DAILY 04/10/21 05/12/21 cholecalciferol (vitamin D3) 50 50 mcg PO DAILY 05/12/21 05/12/21 mcg (2,000 unit) tablet Previous Rx's Medication Instructions Recorded apixaban 2.5 mg tablet (Eliquis) 2.5 mg PO BID #180 tab 02/01/20 amiodarone 200 mg tablet 200 mg PO DAILY 90 Days #90 tab 03/08/21 hydrocodone 5 mg-acetaminophen 325 1 tab PO Q8H PRN 3 Days #5 tab 05/12/21 mg tablet lidocaine 5 % topical patch 1 patch TOPICAL DAILY PRN #30 ea 05/12/21 (Lidoderm) MDD remove after 12 hours Allergies Allergy/AdvReac Type Severity Reaction Status Date / Time No Known Allergies Allergy Unverified 12/10/19 15:32 [No Known Allergies*] Review of Systems Review of Systems: Constitutional: No Fever, No Chills, No Fatigue, No Malaise ENT/Mouth: No Ear Pain, No Nasal Congestion, No Sinus Pain, No Hoarseness, No sore throat, No Rhinorrhea, No Swallowing Difficulty Eyes: No Eye Pain, No Swelling, No Redness Cardiovascular: +Chest Wall Pain, No SOB, No Orthopnea, No Edema, No Palpitations Respiratory: No Cough, No Sputum, No Dyspnea Gastrointestinal: No Nausea, No Vomiting, No Diarrhea, No Constipation, No Abdominal pain Genitourinary: No Dysuria, No Urinary Frequency, No Hematuria, No Urinary Inc ontinence, No Flank Pain Musculoskeletal: +joint pain, No Myalgias, No Joint Swelling Skin: No Skin Lesions, No rash Neuro: No Weakness, No Numbness, No Loss of Consciousness, No Dizziness, No Headache Yes all other systems are reviewed and are negative [facility] Past Medical History Attestation statement: The following information was validated with the patient. Medical History Afib Atrial flutter Cardiomyopathy Chronic anticoagulation Diarrhea HFrEF (heart failure with reduced ejection fraction) ICD (implantable cardioverter-defibrillator) in place NSVT (nonsustained ventricular tachycardia) Pneumatosis coli Surgical History H/O prostatectomy Family History Family History Father No problems noted. Mother No problems noted. Social History Social History Household Members: None Housing: Assisted Living Facility Do you presently have visiting nurse or other home services: No Alcohol intake: never Patient Tobacco Use Status: Never used Tobacco Use of substances other than those prescribed or required for medical reasons: No Advance Directives: Yes Advance Directives on File: Yes Advance Directives Date on File: 02/10/22 service: Yes Current occupational status: retired Physical Exam Vital Signs: Vital Signs: Last Vital Signs Temp 97.7 F 05/12/21 16:30 Pulse 56 05/12/21 16:30 Resp 16 05/12/21 16:30 BP 146/71 H 05/12/21 16:30 Pulse Ox 95 05/12/21 16:30 BMI result Body Mass Index 27.8 Const: General: cooperative, healthy appearing, no acute distress, alert and awake Orientation/consciousness: patient oriented x3 Limitations: no limitations HENMT: Head: Yes normal to inspection Ears: hearing grossly normal bilaterally General nose exam: Normal external nose present Face and sinus: Yes normal facial exam Eyes: General: appearance normal, both eyes and all related structures EOM: EOMs intact bilaterally Neck: Neck: Yes normal visual inspection, Yes no meningeal signs and Yes supple Chest: Other: right anteriorolateral chest wall Chest palpation & inspection: normal inspection of the chest, no crepitus and tenderness Resp: Effort & Inspection: normal respiratory effort and no respiratory distress Auscultation: clear to auscultation bilaterally Cardio: Rate: regular rate Heart sounds: S1 normal heart sound present and S2 normal heart sound present GI: Inspection: Yes normal to inspection Palpation (GI): Soft to palpation, nontender, no guarding and not rigid : General: Yes no CVA tenderness Back/Spine/Pelvis: Other: no midline cervical/ thoracic/ lumbar spinous tenderness /step-off or deformity Back: no CVA tenderness Skin: Rashes: no rashes Wounds: no wounds Neuro: General: patient oriented x3, tone normal, moves all extremities and no meningeal signs Gait exam (Neuro): Normal gait present Extrem: Other: pelvis stable. Right hip without reproducible pain. ROM intact. Neurovascular intact distally. General: Yes normal to inspection Course Course Course Narrative: XR hip RT w PEL1V/XR ribs RT min 3V w CXR1V IMPRESSION: Mild degenerative changes bilateral hip joints and left sacroiliitis. Postsurgical changes right inguinal region. Probable bladder calculi. ? Nondisplaced fracture right lateral ninth rib. The lungs are well-expanded and clear.? - H&H stable /at patient's baseline >> results discussed with patient. incentive spirometer supplied. Plan to DC back to retirement MDM - Fall MDM Narrative Medical decision making narrative: 86-year-old male with a past medical history of AFib on Eliquis, cardiomyopathy, ICD placement, ventricular tachycardia, pneumatosis, heart failure with reduced EF, BIBA from SNF c/o right sided rib and right hip/pelvic pain s/p mechanical slip and fall 2-3 days ago. On exam vital signs stable, NAD/nontoxic, PE as above. Concern for rib fracture vs pelvic/hip fracture. lower concern for intra-abdominal injury or retroperitoneal bleed without tenderness plan: Rib series/ CXR, hip/pelvic x-ray Medical Records Attestation: I reviewed the patient's medical records. Lab Data Attestation: I reviewed the patient's lab results. Result diagrams: 05/12/21 16:28 Labs: Lab Results 05/12/21 Range/Units 16:28 WBC 5.1 (4.8-10.8) X10*3/uL RBC 3.46 L (4.60-5.80) X10*6/uL Hgb 11.5 L (14.0-18.0) g/dl Hct 34.1 L (42.0-52.0) % MCV 98.6 H (80.0-98.0) fL MCH 33.2 H (27.0-33.0) pg MCHC 33.7 (31.0-36.0) g/dl RDW 15.9 (11.0-16.0) % Plt Count 179 (160-400) X10*3/uL MPV 10.4 (9.4-12.4) fL Absolute Nucleated RBC 0.000 (0.0-0.012) X10*3/uL Nucleated RBC % (auto) 0.0 (0.0-0.2) /100WBC Discharge Plan Discharge Clinical Impression: Rib fracture Qualifiers: Encounter type: initial encounter Rib fracture type: single rib Fracture type: closed Laterality: right Qualified Code(s): S22.31XA - Fracture of one rib, right side, initial encounter for closed fracture Patient Disposition: er [facility] Instructions: Rib Fracture (ED) Additional Instructions: you have a right lateral 9th rib fracture. It is nondisplaced. Use incentive spirometer to keep her airways open Lidoderm patches or numbing patches, apply to painful area. [place] is no opiate pain medication, take only when pain is severe for the next 3 days. Be or [place] has Tylenol mixed in, do not exceed 4 g in 1 day If you develop cough, fever, shortness of breath, abdominal pain please return to the emergency department Please follow-up with her doctor in 2 days Prescriptions: New hydrocodone-acetaminophen 5-325 mg tablet 1 tab PO Q8H PRN (Reason: pain, severe) 3 Days Qty: 5 0RF lidocaine [Lidoderm] 5 % adhesive patch,medicated 1 patch topical DAILY MDD remove after 12 hours PRN (Reason: pain) Qty: 30 0RF Rx Instructions: leave on most painful area for up to 12 hrs No Action apixaban [Eliquis] 2.5 mg tablet 2.5 mg PO BID Qty: 180 1RF amiodarone 200 mg tablet 200 mg PO DAILY 90 Days Qty: 90 1RF acetaminophen 500 mg Tablet 500 mg PO BID PRN (Reason: Pain) 0RF levothyroxine 25 mcg tablet 1 tab PO DAILY 0RF cilostazol 50 mg tablet 50 mg PO BID 0RF cholecalciferol (vitamin D3) 50 mcg (2,000 unit) Tablet 50 mcg PO DAILY 0RF lisinopril 2.5 mg tablet 2.5 mg PO DAILY 0RF metoprolol tartrate 25 mg tablet 12.5 mg PO TID 0RF Referrals: Clay Sanchez MD [Primary Care Provider] - 2 days
--- NOTE | 2021-05-12 14:56 | PHA.MEDREC ---
Pharmacy Consult ? Medication Reconciliation Pharmacy has completed the medication reconciliation.
[2021-05-12 15:04] VITALS: BP 141/81; PULSE 55; RESP 16; TEMP 36.5; O2SAT 96
--- NOTE | 2021-05-12 15:39 | PC.NURSE ---
pt brought to ed via ambulance from [facility] s/p mechanical fall. pt reports that he fell 2-3 days ago while getting up from the toilet, he denies hitting head/loc. pt c/o right rib, hip and pelvic pain, he states he only has the pain with movement. he denies headache/dizziness. no n/v/d.
[2021-05-12 16:30] VITALS: BP 146/71; PULSE 56; RESP 16; TEMP 36.5; O2SAT 95
[2021-05-12 16:33] LABS: Hematocrit 34.1 % (42.0-52.0); Hemoglobin 11.5 g/dl (14.0-18.0); Mean Corpuscular HGB Conc 33.7 g/dl (31.0-36.0); Mean Corpuscular Hemoglobin 33.2 pg (27.0-33.0); Mean Corpuscular Volume 98.6 fL (80.0-98.0); Mean Platelet Volume 10.4 fL (9.4-12.4); Platelet Count 179 X10*3/uL (160-400); Red Blood Count 3.46 X10*6/uL (4.60-5.80); Red Cell Distribution Width 15.9 % (11.0-16.0); White Blood Count 5.1 X10*3/uL (4.8-10.8)
== END 2021-05-12 17:30 | disposition skilled nursing facility (03) ==
PROVIDERS: Physician Assistant; Emergency Provider Emergency Medicine; PCP Internal Medicine
DX: S22.31XA Fracture of one rib, right side, initial encounter for closed fracture (principal); W18.12XA Fall from or off toilet with subsequent striking against object, initial encounter; Z91.81 History of falling; I48.91 Unspecified atrial fibrillation; Z79.01 Long term (current) use of anticoagulants; Y93.89 Activity, other specified; Y92.091 Bathroom in other non-institutional residence as the place of occurrence of the external cause; Y99.9 Unspecified external cause status
CPT/HCPCS: 36415; 71101; 73502; 85027; 99283; 99284

== ENCOUNTER 2022-01-31 08:56 | Outpatient (REF) | payer MEDICARE, SELFPAY | END 2022-01-31 08:57 | disposition home or self-care (01) | LOC: HO.SH 08:56 | PROVIDERS: Visit Provider Internal Medicine | DX: Z01.118 Encounter for examination of ears and hearing with other abnormal findings (principal); H90.3 Sensorineural hearing loss, bilateral | CPT/HCPCS: 92557; 92567 ==

== ENCOUNTER 2022-05-04 12:14 | Emergency (ER) | payer MEDICARE, SELFPAY ==
--- NOTE | ~2022-05-04 | CT_ITS ---
EXAMINATION: NONCONTRAST HEAD CT NONCONTRAST CERVICAL SPINE CT INDICATION INFORMATION: A known head strike and loss of consciousness. Neck pain. Status post fall. COMPARISON: Head CT 05/07/2016 TECHNIQUE: Separate noncontrast CT examinations of the head and cervical spine were performed. Coronal and sagittal images were created for each examination at the technologist workstation. This CT examination was performed using dose optimization techniques as appropriate, variously including the following: *Automated exposure control *Adjustment of mA and/or kV according to patient size (this includes techniques or standardized protocols for targeted exams where dose is matched to indication/reason for exam; i.e. extremities or head) *Use of iterative reconstruction technique DLP: 1627 mGy-cm FINDINGS: HEAD: Small arachnoid cyst in the right middle cranial fossa adjacent to the anterior temporal lobe, unchanged. No other intra or extra-axial fluid collection, hemorrhage, or mass. The corcoran-white matter differentiation is maintained. No ventriculomegaly, midline shift or herniation. Basal cisterns are patent. No territorial encephalomalacia. Proportional prominence of the ventricles and sulcal spaces is consistent with mild volume loss. Patchy periventricular and deep white matter hypoattenuation is consistent with mild small vessel ischemic changes. No calvarial fracture or soft tissue abnormality. The mastoid air cells and visualized portions of the paranasal sinuses are well aerated. CERVICAL SPINE: Alignment: Minimal grade 1 anterolisthesis at C3-C4 and C4-C5. No additional subluxation. Vertebra: No acute fracture. No prevertebral soft tissue swelling. Degenerative disc disease: Mild to moderate multilevel degenerative disc disease characterized by disc height loss with endplate sclerosis and proliferative change most prominent at C5-C6 and C6-C7 as well as within the visualized upper thoracic spine. Multilevel bilateral facet arthrosis and uncovertebral spurring. Other findings: Visualized lung apices grossly clear allowing for respiratory motion artifact. 1 cm nodule in the inferior left thyroid lobe, for which no imaging follow-up is recommended. Incompletely imaged left-sided pacer wire. No cervical lymphadenopathy. CT/CT cervical spine wo IV con IMPRESSION: 1. No intracranial hemorrhage or calvarial fracture. 2. No traumatic subluxation or acute cervical spine fracture.
--- NOTE | ~2022-05-04 | XR_ITS ---
EXAMINATION: XR HIP, RIGHT CLINICAL INFORMATION: Fall with decreased range of motion. Pain. COMPARISON: 05/12/2021 TECHNIQUE: Two views of the right hip. Frontal view of the pelvis. FINDINGS: No fracture or dislocation. The hips are appropriately aligned. Narrowing of both joint spaces with subchondral sclerosis and osteophytes. Similar appearance to previous. The pelvic rim is intact. The sacroiliac joints and pubic symphysis are intact. Normal bowel gas pattern. Multiple surgical clips overlie the pelvis. Evidence of prior hernia repair at the midline and in the right inguinal region. Calcification in the central pelvis. XR/XR hip RT min 2V IMPRESSION: No fracture or malalignment. Moderate degenerative changes of the hips.
--- NOTE | ~2022-05-04 | XR_ITS ---
EXAMINATION: XR SHOULDER, RIGHT CLINICAL INFORMATION: Right COMPARISON: None TECHNIQUE: Three views of the right shoulder. FINDINGS: Mildly displaced fracture through the humeral neck. No dislocation or additional acute fracture. Mild osteophyte formation at the glenohumeral joint consistent with mild osteoarthritis. AC joint is congruent and intact with joint space, subchondral sclerosis and osteophytes. Attenuation of the acromial undersurface which may be due to prior acromioplasty. Correlate with surgical history. Visualized right lung is grossly clear save for minimal midlung subsegmental atelectasis. XR/XR shoulder RT min 2V IMPRESSION: 1. Mildly displaced humeral neck fracture. 2. No dislocation. 3. 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
--- NOTE | ~2022-05-04 | XR_ITS ---
EXAMINATION: XR CHEST CLINICAL INFORMATION: Chest wall pain after fall COMPARISON: 05/12/2021 TECHNIQUE: Frontal view of the chest was obtained. FINDINGS: Left chest wall pacer with lead over the right ventricle. The lungs are well expanded. No consolidation, edema, or effusion. No pneumothorax. The cardiomediastinal silhouette is within normal limits. No acute osseous abnormality. Chronic deformity of the right proximal humerus. XR/XR chest 1V IMPRESSION: No acute pulmonary disease. No displaced fractures are seen.
--- NOTE | ~2022-05-04 | XR_ITS ---
EXAMINATION: XR ELBOW, RIGHT CLINICAL INFORMATION: Pain. Fall. Decreased range of motion COMPARISON: None TECHNIQUE: Two views of the right elbow. FINDINGS: No acute fractures are seen . Positioning somewhat limits evaluation of the elbow. No gross joint effusion. There is appropriate alignment. The soft tissues appear unremarkable. XR/XR elbow RT 2V IMPRESSION: No acute fracture or malalignment.
[2022-05-04 12:28] VITALS: BP 140/68; BP 148/72; PULSE 62; PULSE 70; RESP 16; TEMP 36.9; O2SAT 94; O2SAT 95; BMI 33.7
[2022-05-04 13:28] VITALS: PULSE 62
--- NOTE | 2022-05-04 13:31 | PC.NURSE ---
Pt coming from [facility] where he had a mechanical fall from wheelchair. Pt states he does not ambulate at baseline. States his wheelchair hit the curb and he fell out of it hitting his right shoulder and hip. Poor ROM with right shoulder without pain. Collared by EMS for precaution.
[2022-05-04 13:53] LABS: MANUAL DIFF FLAG NO
[2022-05-04 14:04] LABS: Basophils Percent Auto 0.5 % (0-2); Eosinophils Absolute Auto 0.3 X10*3/uL (0.0-0.4); Hematocrit 36.1 % (42.0-52.0); Hemoglobin 11.7 g/dl (14.0-18.0); Imm Gran Abs Auto 0.02 X10*3/uL (0.00-0.03); Imm Gran Pct Auto 0.3 % (0.0-0.4); Lymphocytes Absolute Auto 0.9 X10*3/uL (1.2-4.9); Lymphocytes Percent Auto 15.7 % (20-40); Mean Corpuscular HGB Conc 32.4 g/dl (31.0-36.0); Mean Corpuscular Hemoglobin 31.9 pg (27.0-33.0); Mean Corpuscular Volume 98.4 fL (80.0-98.0); Mean Platelet Volume 11.1 fL (9.4-12.4); Monocytes Absolute Auto 0.6 X10*3/uL (0.1-1.2); Monocytes Percent Auto 10.4 % (2-11); Neutrophils Percent Auto 68.1 % (45-73); Platelet Count 190 X10*3/uL (160-400); Red Blood Count 3.67 X10*6/uL (4.60-5.80); Red Cell Distribution Width 14.6 % (11.0-16.0); White Blood Count 5.9 X10*3/uL (4.8-10.8)
[2022-05-04 14:07] LABS: INTERNATIONAL NORM RATIO 1.3 (0.9-1.1); Prothrombin Time 15.6 SEC (10.0-13.1)
[2022-05-04 14:10] LABS: Alanine Aminotransferase 6 U/L (0-40); Albumin Level 3.6 g/dL (3.5-5.0); Alkaline Phosphatase 88 U/L (39-117); Anion Gap 15 (12-20); Aspartate Amino Transferase 13 U/L (5-37); Bilirubin Total 0.4 mg/dL (0.0-1.0); Blood Urea Nitrogen 26 mg/dL (9-16); Calcium 8.6 mg/dL (8.4-10.2); Carbon Dioxide 23 mmol/L (22-29); Chloride 107 mmol/L (96-108); Creatinine Clr Calc Pharmacy 33.8; Estimated Glomerular Filt Rate 30; Glucose Random 109 mg/dL (60-115); Potassium 4.6 mmol/L (3.3-5.1); Sodium 140 mmol/L (135-145); Total Protein 6.4 g/dL (6.5-8.0)
--- NOTE | 2022-05-04 14:38 | ED.FALL ---
HPI - Fall General Chief Complaint: Fall <Rain EisenbergMORA - Last Filed: 05/04/22 18:14> Stated Complaint: Fall of sidewalk, R shoulder/hip pain per EMS <Rain EisenbergMORA - Last Filed: 05/04/22 18:14> Time Seen by Provider: 05/04/22 12:24 <Rain Leos MORA Eisenberg - Last Filed: 05/04/22 18:14> Source: patient <Rain EisenbergMORA - Last Filed: 05/04/22 18:14> Mode of arrival: EMS <Rain EisenbergMORA - Last Filed: 05/04/22 18:14> Limitations: no limitations <Rain EisenbergMORA - Last Filed: 05/04/22 18:14> History of Present Illness HPI Narrative: Patient is an 87-year-old male presents to the emergency department via EMS. He is coming from [facility] today. He reports that he was out side of his facility the today, was in his wheelchair, which tipped over while attempting to maneuver a curb. he fell forward out of the chair. When asked he is uncertain whether any head strike occurred, he is taking Eliquis, he has reports of neck pain, which is reportedly anteriorly and he attributes this to the hard cervical spine collar that is currently in place. He is also complaining of pain to the right shoulder and elbow with decreased range of motion and right hip pain. <Rain PadillaMORA nina - Last Filed: 05/04/22 18:14> Related Data Home Medications: Home Medications Medication Instructions Recorded Confirmed lisinopril 2.5 mg tablet 2.5 mg PO DAILY 01/18/20 05/04/22 metoprolol tartrate 25 mg tablet 12.5 mg PO TID 01/18/20 05/04/22 acetaminophen 500 mg tablet 500 mg PO BID PRN Pain 04/10/21 05/04/22 cilostazol 50 mg tablet 50 mg PO BID 04/10/21 05/04/22 levothyroxine 25 mcg tablet 1 tab PO DAILY 04/10/21 05/04/22 cholecalciferol (vitamin D3) 50 50 mcg PO DAILY 05/12/21 05/04/22 mcg (2,000 unit) tablet Previous Rx's Medication Instructions Recorded apixaban 2.5 mg tablet (Eliquis) 2.5 mg PO BID #180 tabs 02/01/20 amiodarone 200 mg tablet 200 mg PO DAILY 90 days #90 tabs 03/08/21 <Rain Eisenberg CNP - Last Filed: 05/04/22 18:14> Allergies/Adverse Reactions: Allergies Allergy/AdvReac Type Severity Reaction Status Date / Time No Known Allergies Allergy Verified 05/05/22 02:30 [No Known Allergies*] <Rain Eisenberg CNP - Last Filed: 05/04/22 18:14> Review of Systems Review of Systems: Pertinent positives and negative for noted in HPI <Rain Eisenberg CNP - Last Filed: 05/04/22 18:14> Yes all other systems are reviewed and are negative <Rain Eisenberg CNP - Last Filed: 05/04/22 18:14> [facility] Past Medical History Attestation statement: The following information was validated with the patient. <Rain Eisenberg CNP - Last Filed: 05/04/22 18:14> Source: old records reviewed <Rain Eisenberg CNP - Last Filed: 05/04/22 18:14> Medical History: Medical History Afib Atrial flutter Cardiomyopathy Chronic anticoagulation Diarrhea HFrEF (heart failure with reduced ejection fraction) ICD (implantable cardioverter-defibrillator) in place NSVT (nonsustained ventricular tachycardia) Pneumatosis coli <Rain Eisenberg CNP - Last Filed: 05/04/22 18:14> Surgical History: Surgical History H/O prostatectomy <Rain Eisenberg CNP - Last Filed: 05/04/22 18:14> Family History Family History: Family History Father No problems noted. Mother No problems noted. <Rain Eisenberg CNP - Last Filed: 05/04/22 18:14> Social History Social History: Social History Household Members: None Housing: Assisted Living Facility Do you presently have visiting nurse or other home services: No Alcohol intake: never Patient Tobacco Use Status: Never used Tobacco Advance Directives: Yes Advance Directives on File: Yes Advance Directives Date on File: 02/10/22 service: Yes Current occupational status: retired <Rain Eisenberg CNP - Last Filed: 05/04/22 18:14> Physical Exam Vital Signs: Vital Signs: Last Vital Signs Temp 97.5 F 05/05/22 02:27 Pulse 103 H 05/05/22 02:27 Resp 20 05/05/22 02:27 BP 159/91 H 05/05/22 02:27 Pulse Ox 94 05/05/22 02:27 O2 Del Method 05/04/22 18:27 BMI result Body Mass Index 33.7 <Rain Eisenberg CNP - Last Filed: 05/04/22 18:14> Vital Signs: Last Vital Signs Temp 97.5 F 05/05/22 02:27 Pulse 103 H 05/05/22 02:27 Resp 20 05/05/22 02:27 BP 159/91 H 05/05/22 02:27 Pulse Ox 94 05/05/22 02:27 O2 Del Method 05/04/22 18:27 BMI result Body Mass Index 33.7 <ODIN Hawley - Last Filed: 05/04/22 21:20> Vital Signs: Last Vital Signs Temp 97.5 F 05/05/22 02:27 Pulse 103 H 05/05/22 02:27 Resp 20 05/05/22 02:27 BP 159/91 H 05/05/22 02:27 Pulse Ox 94 05/05/22 02:27 O2 Del Method 05/04/22 18:27 BMI result Body Mass Index 33.7 <Baldo Smith MD - Last Filed: 05/05/22 06:27> Appearance: Alert.?Oriented to person, place and time. No acute distress.?Normal affect. Eyes: Pupils equal, round and reactive to light.? ENT: Pharynx normal.?? Neck: Normal inspection.? Neck supple.? No midline cervical spine tenderness, step-offs, deformities.? CVS: Heart sounds normal. Normal heart rate and rhythm.? Pulses normal.?? Respiratory: No respiratory distress.? Lung sounds clear to auscultation bilaterally?? Abdomen: Soft and non-tender. Normoactive bowel sounds. Skin: Skin warm and dry.? Normal skin color.? ?? Extremities: Decreased AROM to right shoulder and elbow. 2+ radial pulse bilaterally. Full passive range of motion to bilateral lower extremities. Neuro: Moves all extremities spontaneously. Sensation intact bilaterally. CN II-XII intact. No focal neuro deficits. <Rain Eisenberg CNP - Last Filed: 05/04/22 18:14> Course Reevaluation(s) Reevaluation #1: CT of the head revealing no acute intracranial pathology, CT of the cervical spine without acute fracture or subluxation, Hard cervical spine collar removed at this time. reviewed patient's labs, CBC is overall unremarkable, anemia which is consistent with his baseline not needing transfusion criteria. Patient with a history of CKD, noted to have ELYSSA, BUN 26 with creatinine 2.09, baseline appears to be 1.5-1.7. Patient has history of heart failure with preserved ejection fraction, most recent echo September 2020 with LVEF 50-55%, clinically without signs of fluid overload, no respiratory distress, no hypoxia, no rales. Suspect patient may be dehydrated, will administer 1 L normal saline IV fluid, and reassess. <Rain Eisenberg CNP - Last Filed: 05/04/22 18:14> Time: 15:47 <Rain Eisenberg CNP - Last Filed: 05/04/22 18:14> Reevaluation #2: skin tear to right elbow cleanse with normal saline and clean dry dressing placed. XR imaging of the chest, right elbow, right hip are unremarkable without acute fracture dislocation as noted in MDM section of this note. XR imaging reveals mildly displaced humeral neck fracture of the right, Placed in a sling, will require outpatient orthopedic follow-up. Patient resides in an assisted living facility, he is wheelchair bound, and will have no usage of the right arm due to fracture, will place physical therapy/ case management consultation for safe disposition. Pending return of renal function to baseline, patient will then be safe to placed in physician observation, so that additional time can be allotted for case management/physical therapy evaluation. <Rain Eisenberg CNP - Last Filed: 05/04/22 18:14> Time: 16:33 <Rainhuong Eisenberg CNP - Last Filed: 05/04/22 18:14> Reevaluation #3: patient signed out to [facility] pending re-evaluation of renal function after IV fluids. <Rain Eisenberg CNP - Last Filed: 05/04/22 18:14> Time: 18:13 <Rain Eisenberg CNP - Last Filed: 05/04/22 18:14> Additional Reevaluation(s): 2118 Kidney function improved after IV hydration and now appears to be around patient's baseline. At this time patient will be placed into observation to allow more time to be evaluated by physical therapy, case management. Med rec ordered and reconciled. <ODIN Hawley - Last Filed: 05/04/22 21:20> 2118 Kidney function improved after IV hydration and now appears to be around patient's baseline. At this time patient will be placed into observation to allow more time to be evaluated by physical therapy, case management. Med rec ordered and reconciled. Is 626 in the morning. Patient is pending case management and physical therapy evaluation. [facility]. <Baldo Smith MD - Last Filed: 05/05/22 06:27> Medications Administered Generic Name Dose Route Start Last Admin Trade Name Freq PRN Reason Stop Dose Admin Acetaminophen 650 mg 05/04/22 21:25 05/05/22 04:26 Acetaminophen 325 Mg Tablet PO 650 mg BID PRN Administration Pain Discontinued Medications Generic Name Dose Route Start Last Admin Trade Name Freq PRN Reason Stop Dose Admin Sodium Chloride 1,000 mls @ 999 mls/hr 05/04/22 16:00 05/04/22 19:22 Ns IV 05/04/22 17:00 Infused .Q1H1M CLINT Infusion Tramadol HCl 50 mg 05/04/22 18:13 05/04/22 19:21 Tramadol Hcl 50 Mg Tablet PO 05/04/22 18:14 50 mg ONCE ONE Administration <Rain Eisenberg CNP - Last Filed: 05/04/22 18:14> Medications Administered Generic Name Dose Route Start Last Admin Trade Name Freq PRN Reason Stop Dose Admin Acetaminophen 650 mg 05/04/22 21:25 05/05/22 04:26 Acetaminophen 325 Mg Tablet PO 650 mg BID PRN Administration Pain Discontinued Medications Generic Name Dose Route Start Last Admin Trade Name Freq PRN Reason Stop Dose Admin Sodium Chloride 1,000 mls @ 999 mls/hr 05/04/22 16:00 05/04/22 19:22 Ns IV 05/04/22 17:00 Infused .Q1H1M CLINT Infusion Tramadol HCl 50 mg 05/04/22 18:13 05/04/22 19:21 Tramadol Hcl 50 Mg Tablet PO 05/04/22 18:14 50 mg ONCE ONE Administration <ODIN Hawley - Last Filed: 05/04/22 21:20> Medications Administered Generic Name Dose Route Start Last Admin Trade Name Freq PRN Reason Stop Dose Admin Acetaminophen 650 mg 05/04/22 21:25 05/05/22 04:26 Acetaminophen 325 Mg Tablet PO 650 mg BID PRN Administration Pain Discontinued Medications Generic Name Dose Route Start Last Admin Trade Name Freq PRN Reason Stop Dose Admin Sodium Chloride 1,000 mls @ 999 mls/hr 05/04/22 16:00 05/04/22 19:22 Ns IV 05/04/22 17:00 Infused .Q1H1M CLINT Infusion Tramadol HCl 50 mg 05/04/22 18:13 05/04/22 19:21 Tramadol Hcl 50 Mg Tablet PO 05/04/22 18:14 50 mg ONCE ONE Administration <Baldo Smith MD - Last Filed: 05/05/22 06:27> Medical Decision Making Medical Decision Making MDM Narrative: Patient is an 87-year-old male with past medical history of atrial fibrillation/ flutter on Eliquis, cardiomyopathy, heart failure with preserved EF, ICD presenting to emergency department for evaluation after a fall out of wheelchair today. <Rain Eisenberg CNP - Last Filed: 05/04/22 18:14> Lab Data [facility] Lab Attestation statement: I reviewed the patient's lab results. <Rain Eisenberg CNP - Last Filed: 05/04/22 18:14> Result Diagrams: 05/04/22 13:48 05/04/22 13:48 <Rain Eisenberg, CASHIER WRAPPER - Last Filed: 05/04/22 18:14> Labs: Lab Results 05/04/22 05/04/22 05/04/22 Range/Units 13:48 13:48 13:48 WBC 5.9 (4.8-10.8) X10*3/uL RBC 3.67 L (4.60-5.80) X10*6/uL Hgb 11.7 L (14.0-18.0) g/dl Hct 36.1 L (42.0-52.0) % MCV 98.4 H (80.0-98.0) fL MCH 31.9 (27.0-33.0) pg MCHC 32.4 (31.0-36.0) g/dl RDW 14.6 (11.0-16.0) % Plt Count 190 (160-400) X10*3/uL MPV 11.1 (9.4-12.4) fL Immature Gran % (Auto) 0.3 (0.0-0.4) % Neut % (Auto) 68.1 (45-73) % Lymph % (Auto) 15.7 L (20-40) % [place] % (Auto) 10.4 (2-11) % Eos % (Auto) 5.0 H (0-4) % Baso % (Auto) 0.5 (0-2) % Lymph # (Auto) 0.9 L (1.2-4.9) X10*3/uL [place] # (Auto) 0.6 (0.1-1.2) X10*3/uL Eos # (Auto) 0.3 (0.0-0.4) X10*3/uL Baso # (Auto) 0.0 (0.0-0.2) X10*3/uL Abs Immat Gran (auto) 0.02 (0.00-0.03) X10*3/uL Absolute Neuts (auto) 4.0 (2.0-8.3) x10*3/uL Absolute Nucleated RBC 0.000 (0.0-0.012) X10*3/uL Nucleated RBC % (auto) 0.0 (0.0-0.2) /100WBC PT 15.6 H (10.0-13.1) SEC INR 1.3 H (0.9-1.1) Sodium 140 (135-145) mmol/L Potassium 4.6 D (3.3-5.1) mmol/L Chloride 107 (96-108) mmol/L Carbon Dioxide 23 (22-29) mmol/L Anion Gap 15 (12-20) BUN 26 H (9-16) mg/dL Creatinine 2.09 H (0.5-1.4) mg/dL Estim Creat Clear Calc 33.8 Estimated GFR 30 Random Glucose 109 (60-115) mg/dL Calcium 8.6 D (8.4-10.2) mg/dL Total Bilirubin 0.4 (0.0-1.0) mg/dL AST 13 (5-37) U/L ALT 6 (0-40) U/L Alkaline Phosphatase 88 (39-117) U/L B-Natriuretic Peptide (<100) pg/mL Total Protein 6.4 L (6.5-8.0) g/dL Albumin 3.6 (3.5-5.0) g/dL Urine Color Urine Appearance Urine pH (5.0-9.0) Ur Specific [place] (1.005-1.025) Urine Protein (Neg-Trace) mg/dL Urine Glucose (UA) (Negative) mg/dL Urine Ketones (Negative) mg/dL Urine Blood (Negative) Urine Nitrite (Negative) Ur Leukocyte Esterase (Negative) Urine RBC (0-2) /HPF Urine WBC (0-5) /HPF Urine WBC Clumps Ur Squamous Epith Cells (0-2) /HPF Ur Transition Epith Cell Ur Renal Epithelial Cell Calcium Oxalate Crystal Leucine Crystals Cystine Crystals Tyrosine Crystals Other Crystals Urine Bacteria (None Seen) Urine Parasites Bilirubin Casts Epithelial Casts Fatty Casts Hyaline Casts (0-2) /LPF Granular Casts Waxy Casts Broad Casts RBC Casts WBC Casts Other Casts Urine Trichomonas Urine Yeast COVID-19 (MIS) (Negative) COVID-19 Clin Com 05/04/22 05/04/22 05/04/22 Range/Units 13:48 17:34 17:34 WBC (4.8-10.8) X10*3/uL RBC (4.60-5.80) X10*6/uL Hgb (14.0-18.0) g/dl Hct (42.0-52.0) % MCV (80.0-98.0) fL MCH (27.0-33.0) pg MCHC (31.0-36.0) g/dl RDW (11.0-16.0) % Plt Count (160-400) X10*3/uL MPV (9.4-12.4) fL Immature Gran % (Auto) (0.0-0.4) % Neut % (Auto) (45-73) % Lymph % (Auto) (20-40) % [place] % (Auto) (2-11) % Eos % (Auto) (0-4) % Baso % (Auto) (0-2) % Lymph # (Auto) (1.2-4.9) X10*3/uL [place] # (Auto) (0.1-1.2) X10*3/uL Eos # (Auto) (0.0-0.4) X10*3/uL Baso # (Auto) (0.0-0.2) X10*3/uL Abs Immat Gran (auto) (0.00-0.03) X10*3/uL Absolute Neuts (auto) (2.0-8.3) x10*3/uL Absolute Nucleated RBC (0.0-0.012) X10*3/uL Nucleated RBC % (auto) (0.0-0.2) /100WBC PT (10.0-13.1) SEC INR (0.9-1.1) Sodium (135-145) mmol/L Potassium (3.3-5.1) mmol/L Chloride (96-108) mmol/L Carbon Dioxide (22-29) mmol/L Anion Gap (12-20) BUN (9-16) mg/dL Creatinine (0.5-1.4) mg/dL Estim Creat Clear Calc Estimated GFR Random Glucose (60-115) mg/dL Calcium (8.4-10.2) mg/dL Total Bilirubin (0.0-1.0) mg/dL AST (5-37) U/L ALT (0-40) U/L Alkaline Phosphatase (39-117) U/L B-Natriuretic Peptide 160 H (<100) pg/mL Total Protein (6.5-8.0) g/dL Albumin (3.5-5.0) g/dL Urine Color Yellow Cancelled Urine Appearance Clear Cancelled Urine pH 7.5 Cancelled (5.0-9.0) Ur Specific [place] 1.015 Cancelled (1.005-1.025) Urine Protein Negative Cancelled (Neg-Trace) mg/dL Urine Glucose (UA) Negative Cancelled (Negative) mg/dL Urine Ketones Negative Cancelled (Negative) mg/dL Urine Blood Negative Cancelled (Negative) Urine Nitrite Negative Cancelled (Negative) Ur Leukocyte Esterase Small (1+) H Cancelled (Negative) Urine RBC 0-2 Cancelled (0-2) /HPF Urine WBC 11-20 H Cancelled (0-5) /HPF Urine WBC Clumps Cancelled Ur Squamous Epith Cells 0-2 Cancelled (0-2) /HPF Ur Transition Epith Cell Cancelled Ur Renal Epithelial Cell Cancelled Calcium Oxalate Crystal Cancelled Leucine Crystals Cancelled Cystine Crystals Cancelled Tyrosine Crystals Cancelled Other Crystals Cancelled Urine Bacteria 2+ Cancelled (None Seen) Urine Parasites Cancelled Bilirubin Casts Cancelled Epithelial Casts Cancelled Fatty Casts Cancelled Hyaline Casts 0-2 Cancelled (0-2) /LPF Granular Casts Cancelled Waxy Casts Cancelled Broad Casts Cancelled RBC Casts Cancelled WBC Casts Cancelled Other Casts Cancelled Urine Trichomonas Cancelled Urine Yeast Cancelled COVID-19 (MIS) (Negative) COVID-19 Clin Com 05/04/22 05/04/22 Range/Units 18:39 20:43 WBC (4.8-10.8) X10*3/uL RBC (4.60-5.80) X10*6/uL Hgb (14.0-18.0) g/dl Hct (42.0-52.0) % MCV (80.0-98.0) fL MCH (27.0-33.0) pg MCHC (31.0-36.0) g/dl RDW (11.0-16.0) % Plt Count (160-400) X10*3/uL MPV (9.4-12.4) fL Immature Gran % (Auto) (0.0-0.4) % Neut % (Auto) (45-73) % Lymph % (Auto) (20-40) % [place] % (Auto) (2-11) % Eos % (Auto) (0-4) % Baso % (Auto) (0-2) % Lymph # (Auto) (1.2-4.9) X10*3/uL [place] # (Auto) (0.1-1.2) X10*3/uL Eos # (Auto) (0.0-0.4) X10*3/uL Baso # (Auto) (0.0-0.2) X10*3/uL Abs Immat Gran (auto) (0.00-0.03) X10*3/uL Absolute Neuts (auto) (2.0-8.3) x10*3/uL Absolute Nucleated RBC (0.0-0.012) X10*3/uL Nucleated RBC % (auto) (0.0-0.2) /100WBC PT (10.0-13.1) SEC INR (0.9-1.1) Sodium 140 (135-145) mmol/L Potassium 4.7 (3.3-5.1) mmol/L Chloride 108 (96-108) mmol/L Carbon Dioxide 23 (22-29) mmol/L Anion Gap 14 (12-20) BUN 24 H (9-16) mg/dL Creatinine 1.75 H (0.5-1.4) mg/dL Estim Creat Clear Calc 40.4 Estimated GFR 37 Random Glucose 110 (60-115) mg/dL Calcium 8.7 (8.4-10.2) mg/dL Total Bilirubin (0.0-1.0) mg/dL AST (5-37) U/L ALT (0-40) U/L Alkaline Phosphatase (39-117) U/L B-Natriuretic Peptide (<100) pg/mL Total Protein (6.5-8.0) g/dL Albumin (3.5-5.0) g/dL Urine Color Urine Appearance Urine pH (5.0-9.0) Ur Specific [place] (1.005-1.025) Urine Protein (Neg-Trace) mg/dL Urine Glucose (UA) (Negative) mg/dL Urine Ketones (Negative) mg/dL Urine Blood (Negative) Urine Nitrite (Negative) Ur Leukocyte Esterase (Negative) Urine RBC (0-2) /HPF Urine WBC (0-5) /HPF Urine WBC Clumps Ur Squamous Epith Cells (0-2) /HPF Ur Transition Epith Cell Ur Renal Epithelial Cell Calcium Oxalate Crystal Leucine Crystals Cystine Crystals Tyrosine Crystals Other Crystals Urine Bacteria (None Seen) Urine Parasites Bilirubin Casts Epithelial Casts Fatty Casts Hyaline Casts (0-2) /LPF Granular Casts Waxy Casts Broad Casts RBC Casts WBC Casts Other Casts Urine Trichomonas Urine Yeast COVID-19 (MIS) Negative (Negative) COVID-19 Clin Com See Note <Rain Leos Faina, CASHIER WRAPPER - Last Filed: 05/04/22 18:14> Lab Results 05/04/22 05/04/22 05/04/22 Range/Units 13:48 13:48 13:48 WBC 5.9 (4.8-10.8) X10*3/uL RBC 3.67 L (4.60-5.80) X10*6/uL Hgb 11.7 L (14.0-18.0) g/dl Hct 36.1 L (42.0-52.0) % MCV 98.4 H (80.0-98.0) fL MCH 31.9 (27.0-33.0) pg MCHC 32.4 (31.0-36.0) g/dl RDW 14.6 (11.0-16.0) % Plt Count 190 (160-400) X10*3/uL MPV 11.1 (9.4-12.4) fL Immature Gran % (Auto) 0.3 (0.0-0.4) % Neut % (Auto) 68.1 (45-73) % Lymph % (Auto) 15.7 L (20-40) % [place] % (Auto) 10.4 (2-11) % Eos % (Auto) 5.0 H (0-4) % Baso % (Auto) 0.5 (0-2) % Lymph # (Auto) 0.9 L (1.2-4.9) X10*3/uL [place] # (Auto) 0.6 (0.1-1.2) X10*3/uL Eos # (Auto) 0.3 (0.0-0.4) X10*3/uL Baso # (Auto) 0.0 (0.0-0.2) X10*3/uL Abs Immat Gran (auto) 0.02 (0.00-0.03) X10*3/uL Absolute Neuts (auto) 4.0 (2.0-8.3) x10*3/uL Absolute Nucleated RBC 0.000 (0.0-0.012) X10*3/uL Nucleated RBC % (auto) 0.0 (0.0-0.2) /100WBC PT 15.6 H (10.0-13.1) SEC INR 1.3 H (0.9-1.1) Sodium 140 (135-145) mmol/L Potassium 4.6 D (3.3-5.1) mmol/L Chloride 107 (96-108) mmol/L Carbon Dioxide 23 (22-29) mmol/L Anion Gap 15 (12-20) BUN 26 H (9-16) mg/dL Creatinine 2.09 H (0.5-1.4) mg/dL Estim Creat Clear Calc 33.8 Estimated GFR 30 Random Glucose 109 (60-115) mg/dL Calcium 8.6 D (8.4-10.2) mg/dL Total Bilirubin 0.4 (0.0-1.0) mg/dL AST 13 (5-37) U/L ALT 6 (0-40) U/L Alkaline Phosphatase 88 (39-117) U/L B-Natriuretic Peptide (<100) pg/mL Total Protein 6.4 L (6.5-8.0) g/dL Albumin 3.6 (3.5-5.0) g/dL Urine Color Urine Appearance Urine pH (5.0-9.0) Ur Specific [place] (1.005-1.025) Urine Protein (Neg-Trace) mg/dL Urine Glucose (UA) (Negative) mg/dL Urine Ketones (Negative) mg/dL Urine Blood (Negative) Urine Nitrite (Negative) Ur Leukocyte Esterase (Negative) Urine RBC (0-2) /HPF Urine WBC (0-5) /HPF Urine WBC Clumps Ur Squamous Epith Cells (0-2) /HPF Ur Transition Epith Cell Ur Renal Epithelial Cell Calcium Oxalate Crystal Leucine Crystals Cystine Crystals Tyrosine Crystals Other Crystals Urine Bacteria (None Seen) Urine Parasites Bilirubin Casts Epithelial Casts Fatty Casts Hyaline Casts (0-2) /LPF Granular Casts Waxy Casts Broad Casts RBC Casts WBC Casts Other Casts Urine Trichomonas Urine Yeast COVID-19 (MIS) (Negative) COVID-19 Clin Com 05/04/22 05/04/22 05/04/22 Range/Units 13:48 17:34 17:34 WBC (4.8-10.8) X10*3/uL RBC (4.60-5.80) X10*6/uL Hgb (14.0-18.0) g/dl Hct (42.0-52.0) % MCV (80.0-98.0) fL MCH (27.0-33.0) pg MCHC (31.0-36.0) g/dl RDW (11.0-16.0) % Plt Count (160-400) X10*3/uL MPV (9.4-12.4) fL Immature Gran % (Auto) (0.0-0.4) % Neut % (Auto) (45-73) % Lymph % (Auto) (20-40) % [place] % (Auto) (2-11) % Eos % (Auto) (0-4) % Baso % (Auto) (0-2) % Lymph # (Auto) (1.2-4.9) X10*3/uL [place] # (Auto) (0.1-1.2) X10*3/uL Eos # (Auto) (0.0-0.4) X10*3/uL Baso # (Auto) (0.0-0.2) X10*3/uL Abs Immat Gran (auto) (0.00-0.03) X10*3/uL Absolute Neuts (auto) (2.0-8.3) x10*3/uL Absolute Nucleated RBC (0.0-0.012) X10*3/uL Nucleated RBC % (auto) (0.0-0.2) /100WBC PT (10.0-13.1) SEC INR (0.9-1.1) Sodium (135-145) mmol/L Potassium (3.3-5.1) mmol/L Chloride (96-108) mmol/L Carbon Dioxide (22-29) mmol/L Anion Gap (12-20) BUN (9-16) mg/dL Creatinine (0.5-1.4) mg/dL Estim Creat Clear Calc Estimated GFR Random Glucose (60-115) mg/dL Calcium (8.4-10.2) mg/dL Total Bilirubin (0.0-1.0) mg/dL AST (5-37) U/L ALT (0-40) U/L Alkaline Phosphatase (39-117) U/L B-Natriuretic Peptide 160 H (<100) pg/mL Total Protein (6.5-8.0) g/dL Albumin (3.5-5.0) g/dL Urine Color Yellow Cancelled Urine Appearance Clear Cancelled Urine pH 7.5 Cancelled (5.0-9.0) Ur Specific [place] 1.015 Cancelled (1.005-1.025) Urine Protein Negative Cancelled (Neg-Trace) mg/dL Urine Glucose (UA) Negative Cancelled (Negative) mg/dL Urine Ketones Negative Cancelled (Negative) mg/dL Urine Blood Negative Cancelled (Negative) Urine Nitrite Negative Cancelled (Negative) Ur Leukocyte Esterase Small (1+) H Cancelled (Negative) Urine RBC 0-2 Cancelled (0-2) /HPF Urine WBC 11-20 H Cancelled (0-5) /HPF Urine WBC Clumps Cancelled Ur Squamous Epith Cells 0-2 Cancelled (0-2) /HPF Ur Transition Epith Cell Cancelled Ur Renal Epithelial Cell Cancelled Calcium Oxalate Crystal Cancelled Leucine Crystals Cancelled Cystine Crystals Cancelled Tyrosine Crystals Cancelled Other Crystals Cancelled Urine Bacteria 2+ Cancelled (None Seen) Urine Parasites Cancelled Bilirubin Casts Cancelled Epithelial Casts Cancelled Fatty Casts Cancelled Hyaline Casts 0-2 Cancelled (0-2) /LPF Granular Casts Cancelled Waxy Casts Cancelled Broad Casts Cancelled RBC Casts Cancelled WBC Casts Cancelled Other Casts Cancelled Urine Trichomonas Cancelled Urine Yeast Cancelled COVID-19 (MIS) (Negative) COVID-19 Clin Com 05/04/22 05/04/22 Range/Units 18:39 20:43 WBC (4.8-10.8) X10*3/uL RBC (4.60-5.80) X10*6/uL Hgb (14.0-18.0) g/dl Hct (42.0-52.0) % MCV (80.0-98.0) fL MCH (27.0-33.0) pg MCHC (31.0-36.0) g/dl RDW (11.0-16.0) % Plt Count (160-400) X10*3/uL MPV (9.4-12.4) fL Immature Gran % (Auto) (0.0-0.4) % Neut % (Auto) (45-73) % Lymph % (Auto) (20-40) % [place] % (Auto) (2-11) % Eos % (Auto) (0-4) % Baso % (Auto) (0-2) % Lymph # (Auto) (1.2-4.9) X10*3/uL [place] # (Auto) (0.1-1.2) X10*3/uL Eos # (Auto) (0.0-0.4) X10*3/uL Baso # (Auto) (0.0-0.2) X10*3/uL Abs Immat Gran (auto) (0.00-0.03) X10*3/uL Absolute Neuts (auto) (2.0-8.3) x10*3/uL Absolute Nucleated RBC (0.0-0.012) X10*3/uL Nucleated RBC % (auto) (0.0-0.2) /100WBC PT (10.0-13.1) SEC INR (0.9-1.1) Sodium 140 (135-145) mmol/L Potassium 4.7 (3.3-5.1) mmol/L Chloride 108 (96-108) mmol/L Carbon Dioxide 23 (22-29) mmol/L Anion Gap 14 (12-20) BUN 24 H (9-16) mg/dL Creatinine 1.75 H (0.5-1.4) mg/dL Estim Creat Clear Calc 40.4 Estimated GFR 37 Random Glucose 110 (60-115) mg/dL Calcium 8.7 (8.4-10.2) mg/dL Total Bilirubin (0.0-1.0) mg/dL AST (5-37) U/L ALT (0-40) U/L Alkaline Phosphatase (39-117) U/L B-Natriuretic Peptide (<100) pg/mL Total Protein (6.5-8.0) g/dL Albumin (3.5-5.0) g/dL Urine Color Urine Appearance Urine pH (5.0-9.0) Ur Specific [place] (1.005-1.025) Urine Protein (Neg-Trace) mg/dL Urine Glucose (UA) (Negative) mg/dL Urine Ketones (Negative) mg/dL Urine Blood (Negative) Urine Nitrite (Negative) Ur Leukocyte Esterase (Negative) Urine RBC (0-2) /HPF Urine WBC (0-5) /HPF Urine WBC Clumps Ur Squamous Epith Cells (0-2) /HPF Ur Transition Epith Cell Ur Renal Epithelial Cell Calcium Oxalate Crystal Leucine Crystals Cystine Crystals Tyrosine Crystals Other Crystals Urine Bacteria (None Seen) Urine Parasites Bilirubin Casts Epithelial Casts Fatty Casts Hyaline Casts (0-2) /LPF Granular Casts Waxy Casts Broad Casts RBC Casts WBC Casts Other Casts Urine Trichomonas Urine Yeast COVID-19 (MIS) Negative (Negative) COVID-19 Clin Com See Note <ODIN Hawley - Last Filed: 05/04/22 21:20> Lab Results 05/04/22 05/04/22 05/04/22 Range/Units 13:48 13:48 13:48 WBC 5.9 (4.8-10.8) X10*3/uL RBC 3.67 L (4.60-5.80) X10*6/uL Hgb 11.7 L (14.0-18.0) g/dl Hct 36.1 L (42.0-52.0) % MCV 98.4 H (80.0-98.0) fL MCH 31.9 (27.0-33.0) pg MCHC 32.4 (31.0-36.0) g/dl RDW 14.6 (11.0-16.0) % Plt Count 190 (160-400) X10*3/uL MPV 11.1 (9.4-12.4) fL Immature Gran % (Auto) 0.3 (0.0-0.4) % Neut % (Auto) 68.1 (45-73) % Lymph % (Auto) 15.7 L (20-40) % Jennings % (Auto) 10.4 (2-11) % Eos % (Auto) 5.0 H (0-4) % Baso % (Auto) 0.5 (0-2) % Lymph # (Auto) 0.9 L (1.2-4.9) X10*3/uL [place] # (Auto) 0.6 (0.1-1.2) X10*3/uL Eos # (Auto) 0.3 (0.0-0.4) X10*3/uL Baso # (Auto) 0.0 (0.0-0.2) X10*3/uL Abs Immat Gran (auto) 0.02 (0.00-0.03) X10*3/uL Absolute Neuts (auto) 4.0 (2.0-8.3) x10*3/uL Absolute Nucleated RBC 0.000 (0.0-0.012) X10*3/uL Nucleated RBC % (auto) 0.0 (0.0-0.2) /100WBC PT 15.6 H (10.0-13.1) SEC INR 1.3 H (0.9-1.1) Sodium 140 (135-145) mmol/L Potassium 4.6 D (3.3-5.1) mmol/L Chloride 107 (96-108) mmol/L Carbon Dioxide 23 (22-29) mmol/L Anion Gap 15 (12-20) BUN 26 H (9-16) mg/dL Creatinine 2.09 H (0.5-1.4) mg/dL Estim Creat Clear Calc 33.8 Estimated GFR 30 Random Glucose 109 (60-115) mg/dL Calcium 8.6 D (8.4-10.2) mg/dL Total Bilirubin 0.4 (0.0-1.0) mg/dL AST 13 (5-37) U/L ALT 6 (0-40) U/L Alkaline Phosphatase 88 (39-117) U/L B-Natriuretic Peptide (<100) pg/mL Total Protein 6.4 L (6.5-8.0) g/dL Albumin 3.6 (3.5-5.0) g/dL Urine Color Urine Appearance Urine pH (5.0-9.0) Ur Specific [place] (1.005-1.025) Urine Protein (Neg-Trace) mg/dL Urine Glucose (UA) (Negative) mg/dL Urine Ketones (Negative) mg/dL Urine Blood (Negative) Urine Nitrite (Negative) Ur Leukocyte Esterase (Negative) Urine RBC (0-2) /HPF Urine WBC (0-5) /HPF Urine WBC Clumps Ur Squamous Epith Cells (0-2) /HPF Ur Transition Epith Cell Ur Renal Epithelial Cell Calcium Oxalate Crystal Leucine Crystals Cystine Crystals Tyrosine Crystals Other Crystals Urine Bacteria (None Seen) Urine Parasites Bilirubin Casts Epithelial Casts Fatty Casts Hyaline Casts (0-2) /LPF Granular Casts Waxy Casts Broad Casts RBC Casts WBC Casts Other Casts Urine Trichomonas Urine Yeast COVID-19 (MIS) (Negative) COVID-19 Clin Com 05/04/22 05/04/22 05/04/22 Range/Units 13:48 17:34 17:34 WBC (4.8-10.8) X10*3/uL RBC (4.60-5.80) X10*6/uL Hgb (14.0-18.0) g/dl Hct (42.0-52.0) % MCV (80.0-98.0) fL MCH (27.0-33.0) pg MCHC (31.0-36.0) g/dl RDW (11.0-16.0) % Plt Count (160-400) X10*3/uL MPV (9.4-12.4) fL Immature Gran % (Auto) (0.0-0.4) % Neut % (Auto) (45-73) % Lymph % (Auto) (20-40) % Jennings % (Auto) (2-11) % Eos % (Auto) (0-4) % Baso % (Auto) (0-2) % Lymph # (Auto) (1.2-4.9) X10*3/uL [place] # (Auto) (0.1-1.2) X10*3/uL Eos # (Auto) (0.0-0.4) X10*3/uL Baso # (Auto) (0.0-0.2) X10*3/uL Abs Immat Gran (auto) (0.00-0.03) X10*3/uL Absolute Neuts (auto) (2.0-8.3) x10*3/uL Absolute Nucleated RBC (0.0-0.012) X10*3/uL Nucleated RBC % (auto) (0.0-0.2) /100WBC PT (10.0-13.1) SEC INR (0.9-1.1) Sodium (135-145) mmol/L Potassium (3.3-5.1) mmol/L Chloride (96-108) mmol/L Carbon Dioxide (22-29) mmol/L Anion Gap (12-20) BUN (9-16) mg/dL Creatinine (0.5-1.4) mg/dL Estim Creat Clear Calc Estimated GFR Random Glucose (60-115) mg/dL Calcium (8.4-10.2) mg/dL Total Bilirubin (0.0-1.0) mg/dL AST (5-37) U/L ALT (0-40) U/L Alkaline Phosphatase (39-117) U/L B-Natriuretic Peptide 160 H (<100) pg/mL Total Protein (6.5-8.0) g/dL Albumin (3.5-5.0) g/dL Urine Color Yellow Cancelled Urine Appearance Clear Cancelled Urine pH 7.5 Cancelled (5.0-9.0) Ur Specific [place] 1.015 Cancelled (1.005-1.025) Urine Protein Negative Cancelled (Neg-Trace) mg/dL Urine Glucose (UA) Negative Cancelled (Negative) mg/dL Urine Ketones Negative Cancelled (Negative) mg/dL Urine Blood Negative Cancelled (Negative) Urine Nitrite Negative Cancelled (Negative) Ur Leukocyte Esterase Small (1+) H Cancelled (Negative) Urine RBC 0-2 Cancelled (0-2) /HPF Urine WBC 11-20 H Cancelled (0-5) /HPF Urine WBC Clumps Cancelled Ur Squamous Epith Cells 0-2 Cancelled (0-2) /HPF Ur Transition Epith Cell Cancelled Ur Renal Epithelial Cell Cancelled Calcium Oxalate Crystal Cancelled Leucine Crystals Cancelled Cystine Crystals Cancelled Tyrosine Crystals Cancelled Other Crystals Cancelled Urine Bacteria 2+ Cancelled (None Seen) Urine Parasites Cancelled Bilirubin Casts Cancelled Epithelial Casts Cancelled Fatty Casts Cancelled Hyaline Casts 0-2 Cancelled (0-2) /LPF Granular Casts Cancelled Waxy Casts Cancelled Broad Casts Cancelled RBC Casts Cancelled WBC Casts Cancelled Other Casts Cancelled Urine Trichomonas Cancelled Urine Yeast Cancelled COVID-19 (MIS) (Negative) COVID-19 Clin Com 05/04/22 05/04/22 Range/Units 18:39 20:43 WBC (4.8-10.8) X10*3/uL RBC (4.60-5.80) X10*6/uL Hgb (14.0-18.0) g/dl Hct (42.0-52.0) % MCV (80.0-98.0) fL MCH (27.0-33.0) pg MCHC (31.0-36.0) g/dl RDW (11.0-16.0) % Plt Count (160-400) X10*3/uL MPV (9.4-12.4) fL Immature Gran % (Auto) (0.0-0.4) % Neut % (Auto) (45-73) % Lymph % (Auto) (20-40) % Jennings % (Auto) (2-11) % Eos % (Auto) (0-4) % Baso % (Auto) (0-2) % Lymph # (Auto) (1.2-4.9) X10*3/uL [place] # (Auto) (0.1-1.2) X10*3/uL Eos # (Auto) (0.0-0.4) X10*3/uL Baso # (Auto) (0.0-0.2) X10*3/uL Abs Immat Gran (auto) (0.00-0.03) X10*3/uL Absolute Neuts (auto) (2.0-8.3) x10*3/uL Absolute Nucleated RBC (0.0-0.012) X10*3/uL Nucleated RBC % (auto) (0.0-0.2) /100WBC PT (10.0-13.1) SEC INR (0.9-1.1) Sodium 140 (135-145) mmol/L Potassium 4.7 (3.3-5.1) mmol/L Chloride 108 (96-108) mmol/L Carbon Dioxide 23 (22-29) mmol/L Anion Gap 14 (12-20) BUN 24 H (9-16) mg/dL Creatinine 1.75 H (0.5-1.4) mg/dL Estim Creat Clear Calc 40.4 Estimated GFR 37 Random Glucose 110 (60-115) mg/dL Calcium 8.7 (8.4-10.2) mg/dL Total Bilirubin (0.0-1.0) mg/dL AST (5-37) U/L ALT (0-40) U/L Alkaline Phosphatase (39-117) U/L B-Natriuretic Peptide (<100) pg/mL Total Protein (6.5-8.0) g/dL Albumin (3.5-5.0) g/dL Urine Color Urine Appearance Urine pH (5.0-9.0) Ur Specific [place] (1.005-1.025) Urine Protein (Neg-Trace) mg/dL Urine Glucose (UA) (Negative) mg/dL Urine Ketones (Negative) mg/dL Urine Blood (Negative) Urine Nitrite (Negative) Ur Leukocyte Esterase (Negative) Urine RBC (0-2) /HPF Urine WBC (0-5) /HPF Urine WBC Clumps Ur Squamous Epith Cells (0-2) /HPF Ur Transition Epith Cell Ur Renal Epithelial Cell Calcium Oxalate Crystal Leucine Crystals Cystine Crystals Tyrosine Crystals Other Crystals Urine Bacteria (None Seen) Urine Parasites Bilirubin Casts Epithelial Casts Fatty Casts Hyaline Casts (0-2) /LPF Granular Casts Waxy Casts Broad Casts RBC Casts WBC Casts Other Casts Urine Trichomonas Urine Yeast COVID-19 (MIS) Negative (Negative) COVID-19 Clin Com See Note <Baldo Smith MD - Last Filed: 05/05/22 06:27> Independent Interpretation I performed an independent interpretation of an: Plain X-Ray ( I have personally interpreted x-ray imaging and agree with radiologist impression) and CT Scan <Rain Eisenberg CNP - Last Filed: 05/04/22 18:14> Radiology Impression Discussion of test interpretation with radiology: I have reviewed the radiologist's reading. <Rain Eisenberg CNP - Last Filed: 05/04/22 18:14> Radiologist Impression: CT/CT cervical spine wo IV con IMPRESSION: 1.? No intracranial hemorrhage or calvarial fracture. 2.? No traumatic subluxation or acute cervical spine fracture. XR/XR shoulder RT min 2V IMPRESSION: 1.? Mildly displaced humeral neck fracture. 2.? No dislocation. 3.? 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 XR/XR chest 1V IMPRESSION: No acute pulmonary disease. No displaced fractures are seen. XR/XR elbow RT 2V IMPRESSION: No acute fracture or malalignment. XR/XR hip RT min 2V IMPRESSION: No fracture or malalignment. Moderate degenerative changes of the hips. <Rani Eisenberg CNP - Last Filed: 05/04/22 18:14> Critical Care Time Critical Care Time Critical Care Time: No <ODIN Hawley - Last Filed: 05/04/22 21:20> Discharge Plan Discharge Clinical Impression: Fall, Acute kidney injury Fracture of head of humerus Qualifiers: Encounter type: initial encounter Fracture type: closed Laterality: right Qualified Code(s): S42.291A - Other displaced fracture of upper end of right humerus, initial encounter for closed fracture <Rain Eisenberg CNP - Last Filed: 05/04/22 18:14> Patient Disposition: Still a Patient <Rain Eisenberg CNP - Last Filed: 05/04/22 18:14> Prescriptions: No Action apixaban [Eliquis] 2.5 mg tablet 2.5 mg PO BID Qty: 180 1RF amiodarone 200 mg tablet 200 mg PO DAILY 90 Days Qty: 90 1RF acetaminophen 500 mg Tablet 500 mg PO BID PRN (Reason: Pain) levothyroxine 25 mcg tablet 1 tab PO DAILY cilostazol 50 mg tablet 50 mg PO BID cholecalciferol (vitamin D3) 50 mcg (2,000 unit) Tablet 50 mcg PO DAILY lisinopril 2.5 mg tablet 2.5 mg PO DAILY metoprolol tartrate 25 mg tablet 12.5 mg PO TID <Rain Eisenberg CNP - Last Filed: 05/04/22 18:14> Referrals: Gemma Monae PA-C [Physician Social Work Associate] - <Rain Eisenberg CNP - Last Filed: 05/04/22 18:14>
[2022-05-04 15:51] VITALS: BP 180/101; PULSE 82; RESP 14; TEMP 36.4; O2SAT 93
--- NOTE | 2022-05-04 15:52 | MHC.EDTECH ---
PT changed over into hospital gown. PT personal belongings placed in belongings bag behind Pt head of bed.
[2022-05-04 16:17] LABS: B Type Natriuretic Peptide 160 pg/mL (<100)
--- NOTE | 2022-05-04 17:24 | MHC.EDTECH ---
PT 1X assisted with urinal.
[2022-05-04] MEDS: 0.9 % Sodium Chloride 1,000 ML 999 ML IV (17:29)
--- NOTE | 2022-05-04 17:34 | PC.NURSE ---
IV established, fluids infusing. Repeat CMP for after fluids. Plan for PT/CM, pt aware. Sling in place, pt tolerated fairly.
[2022-05-04 17:43] LABS: Appearance Urine Clear; Color Urine Yellow; Glucose Urine UA Negative (Negative); Leukocyte Esterase Urine Small (1+) (Negative); Nitrite Urine Negative (Negative); PH 7.5 (5.0-9.0); Specific Gravity - Urine 1.015 (1.005-1.025); UMIC TRIGGER UACC YES; Urine Blood Negative (Negative); Urine Ketones Negative (Negative); Urine Protein Negative (Neg-Trace)
[2022-05-04 17:46] LABS: Bacteria Urine 2+ (None Seen); Hyaline Casts Urine 0-2 /LPF (0-2); RBC Urine 0-2 /HPF (0-2); Squamous Epithelial Cell Urine 0-2 /HPF (0-2); UACC Culture Trigger YES
[2022-05-04 18:27] VITALS: BP 172/89; PULSE 77; RESP 18; TEMP 36.4; O2SAT 95
[2022-05-04 19:00] LABS: COVID-19 Test Negative (Negative); IDNOW Serial# 16C4AD1C
[2022-05-04] MEDS: traMADoL HCL 50 MG TABLET PO (19:21)
--- NOTE | 2022-05-04 19:24 | PC.NURSE ---
Addendum entered by Tawana Perales 05/05/22 05:18: PT awake, disrobing, asking to be brought out to breakfast, redirectable and reorientated. PT calm and cooperative. Addendum entered by Tawana Perales 05/05/22 02:31: PT incontinent of urine, incontinent care provided, new blankets given. PT states pain only when moving. Sling in place. Addendum entered by Tawana Perales 05/05/22 01:35: PT laying in stretcher, sleeping. RR 16, awakens with verbal stimuli, no apparent distress will CTM. Original Note: This physician underwriter assumed care of this PT at 1900. PT A&Ox2, PT sitting in stretcher, reports 8/10 R arm pain. Med given as documented. Sling is applied. PT using urinal at bedside with staff assist.
--- NOTE | 2022-05-04 19:36 | MHC.CM.ED ---
CM met with patient at request of Dr. Crockett. Fall with R humeral neck fx. Will f/u Out patient with ortho.Pt lives in [facility] assisted living. Has [employer], meals and laundry service. Pt is essentially W/C bound, but is normally able to self transfer. Pfizer x2/boosters x3. HCP on file. HCP/sister Gretel Dominguez ([phone]). Pt friend and contact Suzanne Brannon ([phone]). Pt requested CM call Suzanne with updates and for Suzanne to call his sister and son. CM called Suzanne. Given updates and pt request to call his family. Suzanne was already called by pt son, Royal Dsouza. PT is pending. Pt is agreeable to STR. DBV first choice as patient lives at [facility] assisted living. VIKTORIA Lau spoke with Jennifer Bravo from [facility], who told her they had beds for STR and to refer patient there. D/C plan: STR. Referrals placed locally, with [facility] as first choice. CM to follow for discharge planning.
--- NOTE | 2022-05-04 20:10 | PHA.MEDREC ---
Pharmacy Consult ? Medication Reconciliation Pharmacy has completed the medication reconciliation. med rec completed. obtained medication list from pharmacy
--- NOTE | 2022-05-04 20:23 | PHA.MEDREC ---
Pharmacy Consult ? Medication Reconciliation Pharmacy has completed the medication reconciliation.
[2022-05-04 21:08] LABS: Anion Gap 14 (12-20); Blood Urea Nitrogen 24 mg/dL (9-16); Calcium 8.7 mg/dL (8.4-10.2); Carbon Dioxide 23 mmol/L (22-29); Chloride 108 mmol/L (96-108); Creatinine Clr Calc Pharmacy 40.4; Estimated Glomerular Filt Rate 37; Glucose Random 110 mg/dL (60-115); Potassium 4.7 mmol/L (3.3-5.1); Sodium 140 mmol/L (135-145)
[2022-05-05 02:27] VITALS: BP 159/91; PULSE 103; RESP 20; TEMP 36.4; O2SAT 94
[2022-05-05] MEDS: Acetaminophen 325 MG TABLET 650 MG PO (04:26)
[2022-05-05 08:53] VITALS: BP 128/74; PULSE 86; RESP 16; O2SAT 95
[2022-05-05] MEDS: Cholecalciferol (Vitamin D3) 25 MCG TABLET 50 MCG PO (09:03)
[2022-05-05] MEDS: lisinopriL 2.5 MG TABLET PO (09:03)
[2022-05-05] MEDS: Levothyroxine Sodium 25 MCG TABLET PO (09:03)
[2022-05-05] MEDS: Metoprolol Tartrate 12.5 MG HALFTAB PO (09:03)
[2022-05-05] MEDS: Amiodarone HCL 200 MG TABLET PO (09:03)
[2022-05-05] MEDS: cilostazoL 50 MG TABLET PO (09:03)
[2022-05-05] MEDS: Apixaban 2.5 MG TABLET PO (09:03)
[2022-05-05 11:56] VITALS: BP 128/74; PULSE 86; O2SAT 95
== END 2022-05-05 13:45 | disposition skilled nursing facility (03) ==
PROVIDERS: Nurse Practitioner Family; Emergency Provider Student in an Organized Health Care Education/Training Program
DX: S42.291A Other displaced fracture of upper end of right humerus, initial encounter for closed fracture (principal); R51.9 Headache, unspecified; M54.2 Cervicalgia; I48.91 Unspecified atrial fibrillation; R26.81 Unsteadiness on feet; R07.89 Other chest pain; R06.02 Shortness of breath; M25.551 Pain in right hip; M25.521 Pain in right elbow; W01.10XA Fall on same level from slipping, tripping and stumbling with subsequent striking against unspecified object, initial encounter; Y93.9 Activity, unspecified; Y92.9 Unspecified place or not applicable; Y99.9 Unspecified external cause status; Z79.01 Long term (current) use of anticoagulants; Z20.822 Contact with and (suspected) exposure to COVID-19; Z20.828 Contact with and (suspected) exposure to other viral communicable diseases; Z79.899 Other long term (current) drug therapy
CPT/HCPCS: 36415; 70450; 71045; 72125; 73030; 73070; 73502; 80048; 80053; 81001; 83880; 85025; 85610; 87086; 87088; 87186; 87635; 96360; 96361; 97162; 99285

== ENCOUNTER 2022-05-11 07:11 | Outpatient (REF) | payer MEDICARE, SELFPAY ==
--- NOTE | ~2022-05-11 | XR_ITS ---
EXAMINATION: XR SHOULDER, RIGHT CLINICAL INFORMATION: Right shoulder pain COMPARISON: 05/04/2022 TECHNIQUE: AP external rotation, Grashey, scapular Y, and axillary views of the right shoulder. FINDINGS: Redemonstration of mildly displaced humeral neck fracture. No dislocation. Severe degenerative changes of the glenohumeral joint. XR/XR shoulder RT min 2V IMPRESSION: Redemonstration of mildly displaced humeral neck fracture.
== END 2022-05-11 07:12 | disposition home or self-care (01) ==
LOC: HO.HOSX 07:11
PROVIDERS: Visit Provider Physician Assistant
DX: S42.201A Unspecified fracture of upper end of right humerus, initial encounter for closed fracture (principal)
CPT/HCPCS: 73030; 99202

== ENCOUNTER 2022-05-19 01:35 | Emergency (ER) | payer MEDICARE, SELFPAY ==
[2022-05-19 01:55] VITALS: BP 130/90; PULSE 102; O2SAT 94
[2022-05-19 02:05] VITALS: BP 140/65; PULSE 93; RESP 19; TEMP 36.6; O2SAT 95; BMI 34.8
--- NOTE | 2022-05-19 02:25 | PC.NURSE ---
pt changed into hospital gown. pt placed in rm 13 per churn tender. camera alarm placed on pt. pt a+o x 4. pt states Si with no plan.
--- NOTE | 2022-05-19 02:49 | ED_ITS ---
HPI - Psych General Chief Complaint: Psychiatric Symptoms Stated Complaint: si Time Seen by Provider: 05/19/22 02:43 Source: patient and EMS Mode of arrival: EMS Limitations: no limitations History of Present Illness HPI Narrative: Patient comes to the emergency room via ambulance from [facility]. According to the staff, they told EMS that the patient made suicidal statements. Patient states that he does have history of anxiety and depression. Patient states that he was very frustrated with the staff at the time and made SI statements, but in quite minute. Patient admits that he has had suicidal tho ughts in the past but never acted on them. At this time, patient states that he feels more relaxed, not as angry, not suicidal or homicidal. Related Data Home Medications Medication Instructions Recorded Confirmed lisinopril 2.5 mg tablet 2.5 mg PO DAILY 01/18/20 05/04/22 metoprolol tartrate 25 mg tablet 12.5 mg PO TID 01/18/20 05/04/22 acetaminophen 500 mg tablet 500 mg PO BID PRN Pain 04/10/21 05/04/22 cilostazol 50 mg tablet 50 mg PO BID 04/10/21 05/04/22 levothyroxine 25 mcg tablet 1 tab PO DAILY 04/10/21 05/04/22 cholecalciferol (vitamin D3) 50 50 mcg PO DAILY 05/12/21 05/04/22 mcg (2,000 unit) tablet Previous Rx's Medication Instructions Recorded apixaban 2.5 mg tablet (Eliquis) 2.5 mg PO BID #180 tabs 02/01/20 amiodarone 200 mg tablet 200 mg PO DAILY 90 days #90 tabs 03/08/21 oxycodone 5 mg tablet 5 mg PO Q8H PRN pain #8 tabs 05/05/22 Allergies Allergy/AdvReac Type Severity Reaction Status Date / Time No Known Allergies Allergy Verified 05/11/22 09:09 [No Known Allergies*] Review of Systems Review of Systems: Constitutional : No Weight loss, No Fever, No Chills, No Night Sweats, No Fatigue, No Malaise ENT/Mouth : No Hearing loss, No Ear Pain, No Nasal Congestion, No Sinus Pain, No Hoarseness, No sore throat, No Rhinorrhea, No Swallowing Difficulty Eyes: No Eye Pain, No Swelling, No Redness, No Foreign Body, No Discharge, No Vision Changes Cardiovascular : No Chest Pain, No SOB, No Dyspnea on Exertion, No Orthopnea, No Edema, No Palpitations Respiratory : No Cough, No Sputum, No Wheezing, No Smoke Exposure, No Dyspnea Gastrointestinal : No Nausea, No Vomiting, No Diarrhea, No Constipation, No abdominal Pain, No Hematochezia, No Melena Genitourinary : no irregular bleeding, No Dysuria, No Urinary Frequency, No Hem aturia, No Urinary Incontinence, No Urgency, No Flank Pain, No Urinary Flow Changes, No Hesitancy Musculoskeletal : No joint pain, No Myalgias, No Joint Swelling Skin : No Skin Lesions, No rash Neuro : No Weakness, No Numbness, No Paresthesias, No Loss of Consciousness, No Dizziness, No Headache Psych : At this time within normal limits, earlier today admits to feeling suicidal, no homicidal ideation Heme/Lymph: No Bruising, No Bleeding,No Lymphadenopathy Endocrine : No Polyuria, No Polydipsia, No Temperature Intolerance PMFSH Past Medical History Medical History Afib Atrial flutter Cardiomyopathy Chronic anticoagulation Diarrhea HFrEF (heart failure with reduced ejection fraction) ICD (implantable cardioverter-defibrillator) in place NSVT (nonsustained ventricular tachycardia) Pneumatosis coli Surgical History H/O prostatectomy Family History Family History Father No problems noted. Mother No problems noted. Social History Social History Household Members: None Housing: Assisted Living Facility Do you presently have visiting nurse or other home services: No Alcohol intake: never Patient Tobacco Use Status: Never used Tobacco Advance Directives: Yes Advance Directives Information Provided: Yes Advance Directives on File: Yes Advance Directives Date on File: 02/10/22 service: Yes Current occupational status: retired Physical Exam Vital Signs: Vital Signs: Last Vital Signs Temp 98.3 F 05/19/22 05:07 Pulse 93 05/19/22 05:07 Resp 16 05/19/22 05:07 BP 135/76 05/19/22 05:07 Pulse Ox 96 02/25/23 05:07 O2 Del Method 05/19/22 05:07 BMI result Body Mass Index 34.8 Const: Other: Appearance: Alert. Oriented X3. No acute distress. Eyes: Pupils equal, round and reactive to light. ENT: Pharynx normal. Neck: Normal inspection. Neck supple. No lymph nodes noted. No crepitus CVS: Normal heart rate and rhythm. Pulses normal. Normal S1 and S2 Respiratory: No respiratory distress. Breath sounds normal. No Wheezing. No rales Abdomen: Soft and nontender. No rigidity. No distention. Skin: Skin warm and dry. Normal skin color. Normal skin turgor. Extremities: No lower extremity edema. No Lacerations. No Rash Neuro: Oriented X 3. No motor deficit. No sensory deficit. Moving all extremities. No slurred speech. CN 2 through 12 grossly intact Psych: calm, cooperative, normal affect Course Course Course Narrative: -patient admits to stating that he was feeling suicidal, states that he was frustrated but did not really mean it -urinalysis negative for UTI -care team consult pending -physician observations started at 02:50 -sign-out given to Dr. Maya Medical Decision Making Differential Diagnosis Differential Diagnoses: The differential diagnosis associated with the presentation includes (Anxiety, depression, anger) Admission/Observation Consideration of admission/observation: Escalation of care including admission/observation considered (Patient is under observation status, patient waiting to be seen by the care team.) Lab Data MDM Lab Attestation statement: I reviewed the patient's lab results. Labs: Lab Results 05/19/22 Range/Units 05:11 Urine Color Yellow Urine Appearance Clear Urine pH 5.5 (5.0-9.0) Ur Specific [place] 1.020 (1.005-1.025) Urine Protein Negative (Neg-Trace) mg/dL Urine Glucose (UA) Negative (Negative) mg/dL Urine Ketones Negative (Negative) mg/dL Urine Blood Negative (Negative) Urine Nitrite Negative (Negative) Ur Leukocyte Esterase Negative (Negative) Discharge Plan Discharge Clinical Impression: Acute anxiety Patient Disposition: Still a Patient Prescriptions: No Action apixaban [Eliquis] 2.5 mg tablet 2.5 mg PO BID Qty: 180 1RF amiodarone 200 mg tablet 200 mg PO DAILY 90 Days Qty: 90 1RF acetaminophen 500 mg Tablet 500 mg PO BID PRN (Reason: Pain) levothyroxine 25 mcg tablet 1 tab PO DAILY cilostazol 50 mg tablet 50 mg PO BID oxycodone 5 mg tablet 5 mg PO Q8H PRN (Reason: pain) Qty: 8 0RF Rx Instructions: Partial Fill upon patient request. cholecalciferol (vitamin D3) 50 mcg (2,000 unit) Tablet 50 mcg PO DAILY lisinopril 2.5 mg tablet 2.5 mg PO DAILY metoprolol tartrate 25 mg tablet 12.5 mg PO TID
[2022-05-19 05:07] VITALS: BP 135/76; PULSE 93; RESP 16; TEMP 36.8; O2SAT 96
[2022-05-19 05:17] LABS: Appearance Urine Clear; Color Urine Yellow; Glucose Urine UA Negative (Negative); Leukocyte Esterase Urine Negative (Negative); Nitrite Urine Negative (Negative); PH 5.5 (5.0-9.0); Urine Blood Negative (Negative); Urine Ketones Negative (Negative); Urine Protein Negative (Neg-Trace)
--- NOTE | 2022-05-19 05:17 | PC.NURSE ---
late entry- pt has previous injury to R shoulder. pt came into ed wearing sling on R arm. per dr yeager pt okay to keep sling on at this time
--- NOTE | 2022-05-19 05:17 | PC.NURSE ---
this rn assisted pt in using bedside urinal at this time. this rn updated vs. vss. this rn boosted pt up in bed and raised hob. pt calm and cooperative. pt reports no new needs
--- NOTE | 2022-05-19 07:40 | PC.NURSE ---
ASSUMED CARE OF THIS PT AT 0700. PT'S SISTER CALLED FOR UPDATE. SHE WILL CALL BACK LATER TODAY. (GABRIEL SILVA, PROXY [phone]).
--- NOTE | 2022-05-19 12:06 | PHA.MEDREC ---
Pharmacy Consult ? Medication Reconciliation Pharmacy has completed the medication reconciliation Faxed list from [facility]. Despite recent prescription of metoprolol tartrate 25mg bid (05/14/22), [facility] med list does not include this medication.
--- NOTE | 2022-05-19 14:07 | PC.NURSE ---
PT ALERT, ORIENTED X2, DENIES PAIN. PT SEEN BY CARE TEAM AND IS CLEARED FOR DISCHARGE. HE DENIES SI/HI. TRANSPORTATION ARRANGED, WAITING ON AMBULANCE. RN TO RN GIVEN TO VIKTORIA ANGELES AT [facility].
== END 2022-05-19 14:58 | disposition skilled nursing facility (03) ==
PROVIDERS: Emergency Provider Emergency Medicine
DX: F41.9 Anxiety disorder, unspecified (principal); R45.851 Suicidal ideations; F32.A Depression, unspecified; I48.91 Unspecified atrial fibrillation; Z95.810 Presence of automatic (implantable) cardiac defibrillator; Z79.899 Other long term (current) drug therapy; Z79.01 Long term (current) use of anticoagulants
CPT/HCPCS: 81003; 99284; S9485

== ENCOUNTER 2022-06-08 06:02 | Outpatient (REF) | payer MEDICARE, SELFPAY ==
--- NOTE | ~2022-06-08 | XR_ITS ---
EXAMINATION: XR SHOULDER, RIGHT CLINICAL INFORMATION: Reason for Exam M25.511 - Pain in right shoulder COMPARISON: Shoulder radiographs 05/11/2022 and 05/04/2022 TECHNIQUE: Two views of the shoulder. FINDINGS: Redemonstration of the impacted fracture of the humeral neck which demonstrates similar alignment with respect to prior. Moderate to advanced degenerative changes of the shoulder. Partially imaged cardiac pacer lead. XR/XR shoulder RT min 2V IMPRESSION: Redemonstration of the impacted fracture of the humeral neck which demonstrates similar alignment with respect to prior.
== END 2022-06-08 06:03 | disposition home or self-care (01) ==
LOC: HO.HOSX 06:02
PROVIDERS: Visit Provider Physician Assistant
DX: S42.201D Unspecified fracture of upper end of right humerus, subsequent encounter for fracture with routine healing (principal)
CPT/HCPCS: 73030

== ENCOUNTER 2022-06-13 08:24 | Inpatient (IN) | payer MEDICARE, SELFPAY ==
[2022-06-13] VITALS (25 sets, daily range): BP systolic 83–112; BP diastolic 43–68; PULSE 85–99; RESP 18–32; TEMP 36.6–40.7; O2SAT 80–97; BMI 32.5
--- NOTE | ~2022-06-13 | CT_ITS ---
EXAMINATION: CT HEAD WITHOUT CONTRAST (STROKE PROTOCOL) CLINICAL INFORMATION: Stroke protocol. Altered mental status COMPARISON: None available. TECHNIQUE: Contiguous axial imaging was performed from the skull base to vertex without intravenous administration of contrast. This CT examination was performed using dose optimization techniques as appropriate, variously including the following: *Automated exposure control *Adjustment of mA and/or kV according to patient size (this includes techniques or standardized protocols for targeted exams where dose is matched to indication/reason for exam; i.e. extremities or head) *Use of iterative reconstruction technique DLP: 1158 mGy-cm FINDINGS: There is no acute intra-axial, extra-axial bleed, masses or midline shift shift. There is no acute infarction in evolution. There is no edema. The lateral ventricles are enlarged and so other cortical sulci. There is diffuse periventricular hypodensity without mass effect in both cerebral hemispheres. Bone windows reveal no calvarial abnormality. Minimal atherosclerosis seen of the carotid siphon. Bone windows reveal no calvarial abnormality. The paranasal sinuses and mastoid air cells are well-aerated.. CT/CT head for stroke IMPRESSION: No acute intracranial process seen. This critical result was discussed with Dr. Ambrosio wagner at 8:15 AM on 06/13/2022. It was ascertained that the content and urgency of the report was understood at the time of direct communication.
--- NOTE | ~2022-06-13 | CT_ITS ---
EXAMINATION: CT ABDOMEN AND PELVIS WITHOUT CONTRAST CLINICAL INFORMATION: Sepsis. Rule out obstructive uropathy. COMPARISON: 04/10/2021 TECHNIQUE: Multidetector volumetric imaging was performed from the superior aspect of the liver through the pubic symphysis. Sagittal and coronal reformatted images were obtained on the technologist's workstation. This CT examination was performed using dose optimization techniques as appropriate, variously including the following: *Automated exposure control *Adjustment of mA and/or kV according to patient size (this includes techniques or standardized protocols for targeted exams where dose is matched to indication/reason for exam; i.e. extremities or head) *Use of iterative reconstruction technique DLP: 2327 mGy-cm FINDINGS: Motion limited evaluation. 2 attempts at acquisition were made. LUNG BASES: Bibasilar atelectasis. Cardiac pacer lead. Prominent heart. LIVER, GALLBLADDER, AND BILIARY TREE: The liver is normal in size, shape, and attenuation. No focal hepatic lesion or biliary ductal dilatation is present. The gallbladder is unremarkable with no evidence of radiopaque gallstones, gallbladder wall thickening, or obvious pericholecystic inflammatory changes. PANCREAS: Unremarkable. SPLEEN: Unremarkable. ADRENAL GLANDS: Unremarkable. KIDNEYS AND URETERS: The kidneys are normal in size, shape, and attenuation. No hydronephrosis, hydroureter, or calculi seen. No perinephric stranding. Dominant simple right renal cyst for which no specific follow-up is recommended. There is an exophytic left lower pole hyperdense lesion measuring 1.4 cm. This is higher than simple fluid attenuation. This was simple fluid on the prior study from 04/10/2021. BLADDER: Unremarkable. GASTROINTESTINAL TRACT: Small hiatal hernia. Normal caliber small bowel. No obstruction. No colonic wall thickening or inflammation. No free air or free fluid. ABDOMINAL WALL: Prior right inguinal hernia repair with laxity of the abdominal wall in this area and associated hernia. Bowel extends into this area of laxity. This is unchanged. LYMPH NODES: Normal. VASCULAR: Normal caliber aorta with severe atherosclerotic calcification. PELVIC VISCERA: No pelvic mass. OSSEOUS STRUCTURES: No acute or suspicious osseous abnormality. Scoliotic curvature of the spine with degenerative change throughout. Advanced degenerative change of both hips. CT/CT abdomen pelvis wo IV con IMPRESSION: 1. No acute finding in the abdomen or pelvis. No hydronephrosis or nephrolithiasis. 2. Redemonstration of the right inguinal hernia repair with laxity of the abdominal wall in this area. Bowel extends into this area of laxity. No obstruction. 3. Exophytic left lower pole renal lesion is higher than simple fluid attenuation. This was simple fluid on the prior study from 04/10/2021. This could represent a hemorrhagic or proteinaceous cyst. This could be further evaluated with nonemergent ultrasound. Fleischner guidelines were followed.
--- NOTE | ~2022-06-13 | XR_ITS ---
EXAMINATION: XR CHEST CLINICAL INFORMATION: Mental status change COMPARISON: X-ray 05/04/2022 TECHNIQUE: Frontal view of the chest was obtained. FINDINGS: Left-sided pacemaker with lead extending to the right ventricle. Cardiomediastinal silhouette is stable. Central vascular prominence and interstitial prominence suggesting mild interstitial pulmonary edema. Low lung volumes. Elevation of the right hemidiaphragm. Bibasilar atelectasis plus/minus infiltrate. XR/XR chest 1V IMPRESSION: Central vascular prominence and probable mild interstitial pulmonary edema. Bibasilar atelectasis/infiltrate.
--- NOTE | 2022-06-13 08:30 | ECG_ITS ---
Test Reason : stroke Blood Pressure : / mmHG Vent. Rate : 088 BPM Atrial Rate : 088 BPM P-R Int : 260 ms QRS Dur : 144 ms QT Int : 470 ms P-R-T Axes : 041 078 046 degrees QTc Int : 568 ms Sinus rhythm with sinus arrhythmia with 1st degree A-V block Right bundle branch block Abnormal ECG When compared with ECG of 03-AUG-2018 08:09, Premature ventricular complexes are no longer Present [place] interval has increased Right bundle branch block is now Present Referred By: Margo Hodge Electronically Signed By:KASIA JOHNSON MD
[2022-06-13 08:31] LABS: Glucose, Whole Blood 96 mg/dL (60-115)
[2022-06-13 09:19] LABS: Basophils Percent Auto 0.2 % (0-2); Eosinophils Percent Auto 0.1 % (0-4); Hemoglobin 10.8 g/dl (14.0-18.0); Imm Gran Pct Auto 0.8 % (0.0-0.4); Lymphocytes Absolute Auto 0.4 X10*3/uL (1.2-4.9); Lymphocytes Percent Auto 3.5 % (20-40); MANUAL DIFF FLAG SCAN; Mean Corpuscular HGB Conc 32.7 g/dl (31.0-36.0); Mean Platelet Volume 11.3 fL (9.4-12.4); Monocytes Absolute Auto 0.5 X10*3/uL (0.1-1.2); Monocytes Percent Auto 3.7 % (2-11); Neutrophils Absolute Auto 11.4 x10*3/uL (2.0-8.3); Neutrophils Percent Auto 91.7 % (45-73); Platelet Count 181 X10*3/uL (160-400); Red Blood Count 3.38 X10*6/uL (4.60-5.80); Red Cell Distribution Width 15.3 % (11.0-16.0); SCAN SMEAR FLAG 1; White Blood Count 12.4 X10*3/uL (4.8-10.8)
[2022-06-13 09:20] LABS: INTERNATIONAL NORM RATIO 1.9 (0.9-1.1); Prothrombin Time 21.9 SEC (10.0-13.1)
[2022-06-13 09:23] LABS: Partial Thromboplastin Time 35.5 SEC (26.0-36.4)
[2022-06-13 09:27] LABS: Stroke Lab Use COMPLETE
[2022-06-13] MEDS: Acetaminophen Supp 650 MG SUPP.RECT PR ×2 (09:34→22:56)
[2022-06-13 09:35] LABS: Mean Corpuscular Volume 97.6 fL (80.0-98.0)
[2022-06-13 09:38] LABS: Lactic Acid 3.2 mmol/L (0.5-2.0)
[2022-06-13 09:43] LABS: SLIDE REVIEW VERIFIED
[2022-06-13] MEDS: cefTRIAXone sodium 1 GM in 0.9 % Sodium Chloride 50 ML IV (09:50)
[2022-06-13] MEDS: 0.9 % Sodium Chloride 1,000 ML 999 ML IV (09:52)
--- NOTE | 2022-06-13 09:54 | PC.NURSE ---
pt started on cooling blanket 20 min cycles for rectal temp 105.2. pt RR 30, BP soft 98/55 (MAP69) straight cath for urine sample sent to lab. pt with bruising noted to R humerous, EMS reported recent frx. pts Left lower leg warm and red.
[2022-06-13 10:04] LABS: Influenza A PCR NEGATIVE (Negative); Influenza B PCR NEGATIVE (Negative); Resp Syncy Virus RNA Qual PCR NEGATIVE (Negative); SARS COV2 PCR INHOUSE NEGATIVE (Negative)
[2022-06-13 10:12] LABS: Troponin-I High Sensitivity > 3600.0 ng/L (<3.5-35.0)
[2022-06-13 10:32] LABS: Appearance Urine Cloudy; Color Urine Dark Yellow; Glucose Urine UA Negative (Negative); Leukocyte Esterase Urine Trace (Negative); Nitrite Urine Negative (Negative); Specific Gravity - Urine 1.025 (1.005-1.025); UMIC TRIGGER UACC YES; Urine Blood Negative (Negative); Urine Ketones Trace mg/dL (Negative); Urine Protein 30 (1+) mg/dL (Neg-Trace)
[2022-06-13] MEDS: Piperacillin Sodium/Tazobactam 3.375 GM in 0.9 % Sodium Chloride 50 ML IV ×2 (10:45→17:48)
[2022-06-13 10:48] LABS: Bacteria Urine None Seen (None Seen); Hyaline Casts Urine 0-2 /LPF (0-2); RBC Urine 0-2 /HPF (0-2); WBC Urine 0-5 /HPF (0-5)
--- NOTE | 2022-06-13 10:56 | PHA.MEDREC ---
Pharmacy Consult ? Medication Reconciliation Pharmacy has completed the medication reconciliation. Med rec complete using list from [facility]
[2022-06-13 11:09] LABS: Reflex Lactate? Lactic Acid Added
[2022-06-13] MEDS: SODIUM CHLORIDE 3177 ML IV (11:09)
--- NOTE | 2022-06-13 11:09 | PC.NURSE ---
total cumulative dose of sepsis fluids received was 3,177
[2022-06-13 11:50] LABS: Anion Gap 18 (12-20); Blood Urea Nitrogen 34 mg/dL (9-16); Calcium 8.3 mg/dL (8.4-10.2); Carbon Dioxide 17 mmol/L (22-29); Chloride 111 mmol/L (96-108); Estimated Glomerular Filt Rate 22; Glucose Random 87 mg/dL (60-115); Potassium 4.8 mmol/L (3.3-5.1); Sodium 141 mmol/L (135-145)
--- NOTE | 2022-06-13 11:51 | ED.NEUROSD ---
HPI - Neuro Symptoms/Deficit General Chief Complaint: Stroke Stated Complaint: Stroke alert per EMS Time Seen by Provider: 06/13/22 08:30 Source: patient and EMS Mode of arrival: EMS Limitations: altered mental status History of Present Illness HPI Narrative: 87-year-old male brought in by ambulance for evaluation change mental status and possible stroke. Came in from rehab after was found with garbled speech, acute mental status change with confusion, and subjective fever. Patient is able to give some history. Related Data Home Medications Medication Instructions Recorded Confirmed lisinopril 2.5 mg tablet 2.5 mg PO DAILY@0800 01/18/20 06/13/22 acetaminophen 500 mg tablet 500 mg PO BID PRN Pain 04/10/21 06/13/22 cilostazol 50 mg tablet 50 mg PO BID 04/10/21 06/13/22 levothyroxine 25 mcg tablet 1 tab PO DAILY@0600 04/10/21 06/13/22 bisacodyl 10 mg rectal suppository 10 mg OK DAILY PRN Constipation 05/19/22 06/13/22 magnesium hydroxide 400 mg/5 mL 30 ml PO DAILY PRN Constipation 05/19/22 06/13/22 oral suspension (Milk of Magnesia) oxycodone 5 mg tablet 5 mg PO Q8H PRN Mod/Severe Pain 05/19/22 06/13/22 (Scale Score 4-10) sodium phosphates 19 gram-7 118 ml OK DAILY PRN Constipation 05/19/22 06/13/22 gram/118 mL enema (Fleet Enema) zinc oxide 1 appl topical BID 05/19/22 06/13/22 amiodarone 200 mg tablet 200 mg PO DAILY@0800 06/13/22 06/13/22 cholecalciferol (vitamin D3) 50 50 mcg PO DAILY 06/13/22 06/13/22 mcg (2,000 unit) capsule metoprolol tartrate 25 mg tablet 12.5 mg PO TID 06/13/22 06/13/22 Previous Rx's Medication Instructions Recorded apixaban 2.5 mg tablet (Eliquis) 2.5 mg PO BID #180 tabs 02/01/20 Allergies Allergy/AdvReac Type Severity Reaction Status Date / Time No Known Allergies Allergy Verified 06/08/22 10:37 [No Known Allergies*] Review of Systems Review of Systems: Yes Unobtainable due to mental status [facility] Past Medical History Medical History Afib Atrial flutter Cardiomyopathy Chronic anticoagulation Diarrhea HFrEF (heart failure with reduced ejection fraction) ICD (implantable cardioverter-defibrillator) in place NSVT (nonsustained ventricular tachycardia) Pneumatosis coli Surgical History H/O prostatectomy Family History Family History Father No problems noted. Mother No problems noted. Social History Social History Household Members: None Housing: Assisted Living Facility Do you presently have visiting nurse or other home services: No Alcohol intake: never Patient Tobacco Use Status: Never used Tobacco Smoked in Last 30 Days: No Use of substances other than those prescribed or required for medical reasons: No Advance Directives: Yes Advance Directives on File: Yes Advance Directives Date on File: 02/10/22 service: Yes Current occupational status: retired Physical Exam Vital Signs: Vital Signs: Last Vital Signs Temp 101.5 F H 06/13/22 14:18 Pulse 87 06/13/22 14:36 Resp 18 06/13/22 14:36 BP 88/47 L 06/13/22 14:36 Pulse Ox 92 06/13/22 14:36 O2 Del Method 06/13/22 14:36 O2 Flow Rate 2 06/13/22 14:36 Oxygen Flow Rate 4 06/13/22 08:47 BMI result Body Mass Index 32.5 Vital signs have been reviewed as appeared to be correct. Blood pressure low. Heart rate elevated. Respiration rate normal. Temperature normal. Oxygen saturation normal. Appearance: Alert. Oriented . No acute distress. Head: Normal external exam. Normocephalic. Atraumatic. No Mike signs noted. No raccoon eyes noted Eyes: PERRLA. EOMI. Conjunctiva and sclera normal. Eyelids normal. ENT: TM's Normal. Pharynx normal. Uvula midline. Moist mucous membranes. No trismus noted. No drooling noted. No muffled voice noted. Neck: Normal inspection. Neck supple. FROM. No adenopathy. Thyroid Normal. No meningeal signs. No neck mass noted. CVS: Normal heart rate and rhythm. Heart sound normal. No murmurs noted. Pulses normal throughout. Respiratory: No respiratory distress. Painless inspiration. Breath sounds normal. No wheezes/rales/rhonchi noted. Chest nontender. No accessory muscle usage noted or decreased air movement noted. Abdomen: Soft and nontender. Bowel sounds normal in all 4 quadrants. No distention noted. No organomegaly noted. No visible injury noted. Back: No CVA tenderness. Full range of motion noted. Skin: Skin warm and dry. Normal skin color. Normal skin turgor. No rashes/lesions/lacerations noted. Extremities: 5 x 3 area of redness, hotness, tenderness over the left wall. Neuro: Oriented. Cranial nerve exam: II-XII are grossly intact No motor deficit. No sensory deficit. Reflexes normal. Course Course Course Narrative: 87-year-old male with left leg cellulitis and septic shock, patient received Zosyn, total of 3,177 mL normal saline, ceftriaxone. Patient is hypotensive and with lactic acidosis will start the patient on Levophed, admit the patient to ICU. Reevaluation(s) Reevaluation #1: FOCUSED EXAM: Patient is more awake, more coherent, blood pressure has improved still less than 90, Levophed was started on the patient, patient has been accepted to ICU by Dr. Keys. Time: 14:50 Medications Administered Discontinued Medications Generic Name Dose Route Start Last Admin Trade Name Freq PRN Reason Stop Dose Admin Acetaminophen 650 mg 06/13/22 09:18 06/13/22 09:34 Acetaminophen Supp 650 Mg Supp.Rect OK 06/13/22 09:19 650 mg ONCE ONE Administration Sodium Chloride 1,000 mls @ 999 mls/hr 06/13/22 09:32 06/13/22 10:56 Ns IV 06/13/22 10:32 Infused .Q1H1M ONE Infusion Ceftriaxone Sodium 1 gm/ 50 mls @ 100 mls/hr 06/13/22 09:32 06/13/22 10:26 Sodium Chloride IV 06/13/22 10:01 Infused ONCE ONE Infusion Piperacillin Sod/Tazobactam 50 mls @ 100 mls/hr 06/13/22 10:02 06/13/22 11:41 Sod 3.375 gm/ Sodium Chloride IV 06/13/22 10:31 Infused ONCE ONE Infusion Sodium Chloride 3,177 mls @ 3,177 mls/hr 06/13/22 10:53 06/13/22 12:43 Ns 30 ml/kg infuse over 1 hr (3177 ml) 06/13/22 11:52 Infused IV Infusion .Q1H STA Medical Decision Making Differential Diagnosis Differential Diagnoses: The differential diagnosis associated with the presentation includes (cellulitis, septic shock, severe sepsis.) Admission/Observation Consideration of admission/observation: Escalation of care including admission/observation considered Consult Healthcare Provider Management of the patient was discussed with: Cat Scan Technologist (Massimo) Lab Data MDM Lab Attestation statement: I reviewed the patient's lab results. 06/13/22 09:05 06/13/22 11:07 Labs: Lab Results 06/13/22 06/13/22 06/13/22 Range/Units 08:28 09:05 09:05 WBC 12.4 H (4.8-10.8) X10*3/uL RBC 3.38 L (4.60-5.80) X10*6/uL Hgb 10.8 L (14.0-18.0) g/dl Hct 33.0 L (42.0-52.0) % MCV 97.6 (80.0-98.0) fL MCH 32.0 (27.0-33.0) pg MCHC 32.7 (31.0-36.0) g/dl RDW 15.3 (11.0-16.0) % Plt Count 181 (160-400) X10*3/uL MPV 11.3 (9.4-12.4) fL Immature Gran % (Auto) 0.8 H (0.0-0.4) % Neut % (Auto) 91.7 H (45-73) % Lymph % (Auto) 3.5 L (20-40) % [place] % (Auto) 3.7 (2-11) % Eos % (Auto) 0.1 (0-4) % Baso % (Auto) 0.2 (0-2) % Lymph # (Auto) 0.4 L (1.2-4.9) X10*3/uL [place] # (Auto) 0.5 (0.1-1.2) X10*3/uL Eos # (Auto) 0.0 (0.0-0.4) X10*3/uL Baso # (Auto) 0.0 (0.0-0.2) X10*3/uL Abs Immat Gran (auto) 0.10 H (0.00-0.03) X10*3/uL Absolute Neuts (auto) 11.4 H (2.0-8.3) x10*3/uL Absolute Nucleated RBC 0.000 (0.0-0.012) X10*3/uL Nucleated RBC % (auto) 0.0 (0.0-0.2) /100WBC Smear Tech's Comments VERIFIED PT 21.9 H (10.0-13.1) SEC INR 1.9 H (0.9-1.1) APTT 35.5 (26.0-36.4) SEC Sodium (135-145) mmol/L Potassium (3.3-5.1) mmol/L Chloride (96-108) mmol/L Carbon Dioxide (22-29) mmol/L Anion Gap (12-20) BUN (9-16) mg/dL Creatinine (0.5-1.4) mg/dL Estim Creat Clear Calc Estimated GFR POC Glucose 96 (60-115) mg/dL Random Glucose (60-115) mg/dL Lactic Acid (0.5-2.0) mmol/L Lactic Acid F/U @ 2Hr (0.5-2.0) mmol/L Calcium (8.4-10.2) mg/dL Total Creatine Kinase (38-174) U/L Troponin I High Sens (<3.5-35.0) ng/L Urine Color Urine Appearance Urine pH (5.0-9.0) Ur Specific [place] (1.005-1.025) Urine Protein (Neg-Trace) mg/dL Urine Glucose (UA) (Negative) mg/dL Urine Ketones (Negative) mg/dL Urine Blood (Negative) Urine Nitrite (Negative) Ur Leukocyte Esterase (Negative) Urine RBC (0-2) /HPF Urine WBC (0-5) /HPF Ur Squamous Epith Cells (0-2) /HPF Urine Bacteria (None Seen) Hyaline Casts (0-2) /LPF Influenza Type A (PCR) (Negative) Influenza Type B (PCR) (Negative) RSV RNA Qual (PCR) (Negative) SARS-CoV-2 RNA (RT-PCR) (Negative) 06/13/22 06/13/22 06/13/22 Range/Units 09:05 09:05 09:05 WBC (4.8-10.8) X10*3/uL RBC (4.60-5.80) X10*6/uL Hgb (14.0-18.0) g/dl Hct (42.0-52.0) % MCV (80.0-98.0) fL MCH (27.0-33.0) pg MCHC (31.0-36.0) g/dl RDW (11.0-16.0) % Plt Count (160-400) X10*3/uL MPV (9.4-12.4) fL Immature Gran % (Auto) (0.0-0.4) % Neut % (Auto) (45-73) % Lymph % (Auto) (20-40) % [place] % (Auto) (2-11) % Eos % (Auto) (0-4) % Baso % (Auto) (0-2) % Lymph # (Auto) (1.2-4.9) X10*3/uL [place] # (Auto) (0.1-1.2) X10*3/uL Eos # (Auto) (0.0-0.4) X10*3/uL Baso # (Auto) (0.0-0.2) X10*3/uL Abs Immat Gran (auto) (0.00-0.03) X10*3/uL Absolute Neuts (auto) (2.0-8.3) x10*3/uL Absolute Nucleated RBC (0.0-0.012) X10*3/uL Nucleated RBC % (auto) (0.0-0.2) /100WBC Smear Tech's Comments PT (10.0-13.1) SEC INR (0.9-1.1) APTT (26.0-36.4) SEC Sodium (135-145) mmol/L Potassium (3.3-5.1) mmol/L Chloride (96-108) mmol/L Carbon Dioxide (22-29) mmol/L Anion Gap (12-20) BUN (9-16) mg/dL Creatinine (0.5-1.4) mg/dL Estim Creat Clear Calc Estimated GFR POC Glucose (60-115) mg/dL Random Glucose (60-115) mg/dL Lactic Acid 3.2 H* (0.5-2.0) mmol/L Lactic Acid F/U @ 2Hr (0.5-2.0) mmol/L Calcium (8.4-10.2) mg/dL Total Creatine Kinase (38-174) U/L Troponin I High Sens > 3600.0 H* (<3.5-35.0) ng/L Urine Color Urine Appearance Urine pH (5.0-9.0) Ur Specific [place] (1.005-1.025) Urine Protein (Neg-Trace) mg/dL Urine Glucose (UA) (Negative) mg/dL Urine Ketones (Negative) mg/dL Urine Blood (Negative) Urine Nitrite (Negative) Ur Leukocyte Esterase (Negative) Urine RBC (0-2) /HPF Urine WBC (0-5) /HPF Ur Squamous Epith Cells (0-2) /HPF Urine Bacteria (None Seen) Hyaline Casts (0-2) /LPF Influenza Type A (PCR) NEGATIVE (Negative) Influenza Type B (PCR) NEGATIVE (Negative) RSV RNA Qual (PCR) NEGATIVE (Negative) SARS-CoV-2 RNA (RT-PCR) NEGATIVE (Negative) 06/13/22 06/13/22 06/13/22 Range/Units 10:03 11:07 11:20 WBC (4.8-10.8) X10*3/uL RBC (4.60-5.80) X10*6/uL Hgb (14.0-18.0) g/dl Hct (42.0-52.0) % MCV (80.0-98.0) fL MCH (27.0-33.0) pg MCHC (31.0-36.0) g/dl RDW (11.0-16.0) % Plt Count (160-400) X10*3/uL MPV (9.4-12.4) fL Immature Gran % (Auto) (0.0-0.4) % Neut % (Auto) (45-73) % Lymph % (Auto) (20-40) % [place] % (Auto) (2-11) % Eos % (Auto) (0-4) % Baso % (Auto) (0-2) % Lymph # (Auto) (1.2-4.9) X10*3/uL [place] # (Auto) (0.1-1.2) X10*3/uL Eos # (Auto) (0.0-0.4) X10*3/uL Baso # (Auto) (0.0-0.2) X10*3/uL Abs Immat Gran (auto) (0.00-0.03) X10*3/uL Absolute Neuts (auto) (2.0-8.3) x10*3/uL Absolute Nucleated RBC (0.0-0.012) X10*3/uL Nucleated RBC % (auto) (0.0-0.2) /100WBC Smear Tech's Comments PT (10.0-13.1) SEC INR (0.9-1.1) APTT (26.0-36.4) SEC Sodium 141 (135-145) mmol/L Potassium 4.8 (3.3-5.1) mmol/L Chloride 111 H (96-108) mmol/L Carbon Dioxide 17 L (22-29) mmol/L Anion Gap 18 (12-20) BUN 34 H (9-16) mg/dL Creatinine 2.73 H (0.5-1.4) mg/dL Estim Creat Clear Calc 24.0 Estimated GFR 22 POC Glucose (60-115) mg/dL Random Glucose 87 (60-115) mg/dL Lactic Acid (0.5-2.0) mmol/L Lactic Acid F/U @ 2Hr 3.7 H* (0.5-2.0) mmol/L Calcium 8.3 L (8.4-10.2) mg/dL Total Creatine Kinase 997 H (38-174) U/L Troponin I High Sens (<3.5-35.0) ng/L Urine Color Dark Yellow Urine Appearance Cloudy Urine pH 5.0 (5.0-9.0) Ur Specific [place] 1.025 (1.005-1.025) Urine Protein 30 (1+) H (Neg-Trace) mg/dL Urine Glucose (UA) Negative (Negative) mg/dL Urine Ketones Trace (Negative) mg/dL Urine Blood Negative (Negative) Urine Nitrite Negative (Negative) Ur Leukocyte Esterase Trace H (Negative) Urine RBC 0-2 (0-2) /HPF Urine WBC 0-5 (0-5) /HPF Ur Squamous Epith Cells 3-5 (0-2) /HPF Urine Bacteria None Seen (None Seen) Hyaline Casts 0-2 (0-2) /LPF Influenza Type A (PCR) (Negative) Influenza Type B (PCR) (Negative) RSV RNA Qual (PCR) (Negative) SARS-CoV-2 RNA (RT-PCR) (Negative) 06/13/22 Range/Units 12:08 WBC (4.8-10.8) X10*3/uL RBC (4.60-5.80) X10*6/uL Hgb (14.0-18.0) g/dl Hct (42.0-52.0) % MCV (80.0-98.0) fL MCH (27.0-33.0) pg MCHC (31.0-36.0) g/dl RDW (11.0-16.0) % Plt Count (160-400) X10*3/uL MPV (9.4-12.4) fL Immature Gran % (Auto) (0.0-0.4) % Neut % (Auto) (45-73) % Lymph % (Auto) (20-40) % [place] % (Auto) (2-11) % Eos % (Auto) (0-4) % Baso % (Auto) (0-2) % Lymph # (Auto) (1.2-4.9) X10*3/uL [place] # (Auto) (0.1-1.2) X10*3/uL Eos # (Auto) (0.0-0.4) X10*3/uL Baso # (Auto) (0.0-0.2) X10*3/uL Abs Immat Gran (auto) (0.00-0.03) X10*3/uL Absolute Neuts (auto) (2.0-8.3) x10*3/uL Absolute Nucleated RBC (0.0-0.012) X10*3/uL Nucleated RBC % (auto) (0.0-0.2) /100WBC Smear Tech's Comments PT (10.0-13.1) SEC INR (0.9-1.1) APTT (26.0-36.4) SEC Sodium (135-145) mmol/L Potassium (3.3-5.1) mmol/L Chloride (96-108) mmol/L Carbon Dioxide (22-29) mmol/L Anion Gap (12-20) BUN (9-16) mg/dL Creatinine (0.5-1.4) mg/dL Estim Creat Clear Calc Estimated GFR POC Glucose (60-115) mg/dL Random Glucose (60-115) mg/dL Lactic Acid (0.5-2.0) mmol/L Lactic Acid F/U @ 2Hr (0.5-2.0) mmol/L Calcium (8.4-10.2) mg/dL Total Creatine Kinase (38-174) U/L Troponin I High Sens > 3600.0 H* (<3.5-35.0) ng/L Urine Color Urine Appearance Urine pH (5.0-9.0) Ur Specific [place] (1.005-1.025) Urine Protein (Neg-Trace) mg/dL Urine Glucose (UA) (Negative) mg/dL Urine Ketones (Negative) mg/dL Urine Blood (Negative) Urine Nitrite (Negative) Ur Leukocyte Esterase (Negative) Urine RBC (0-2) /HPF Urine WBC (0-5) /HPF Ur Squamous Epith Cells (0-2) /HPF Urine Bacteria (None Seen) Hyaline Casts (0-2) /LPF Influenza Type A (PCR) (Negative) Influenza Type B (PCR) (Negative) RSV RNA Qual (PCR) (Negative) SARS-CoV-2 RNA (RT-PCR) (Negative) Independent Interpretation I performed an independent interpretation of an: EKG (Normal sinus rhythm at 88 beats per minute with sinus arrhythmia, first-degree AV block, RBBB.) and Plain X-Ray (Chest:Central vascular prominence and probable mild interstitial pulmonary edema. Bibasilar atelectasis/infiltrate. ) Radiology Impression Discussion of test interpretation with radiology: I have reviewed the radiologist's reading. Critical Care Time Critical Care Time Critical Care Time: Yes Total Critical Care Time: 60 Attestation: I spent 60 minutes providing critical care service to the patient, this including time spent at the bedside to evaluate the patient, reassess the patient, monitoring vital signs, review labs, and radiographic studies, counseling the patient/family, discussing the case with consultants, disposition the patient. Discharge Plan Discharge Clinical Impression: Sepsis, Hypotension, Cellulitis Patient Disposition: Admitted As Inpatient
--- NOTE | 2022-06-13 11:58 | PC.NURSE ---
call placed to pts emergency contact (marcy) as well as pts Primary conact (son, Royal)
[2022-06-13 12:05] LABS: ~Lactic Acid-LAB USE ONLY 3.7 mmol/L (0.5-2.0)
--- NOTE | 2022-06-13 12:21 | PC.NURSE ---
pt wound noted to L heel - photographed and images sent to dr. Hodge via [employer] connect
[2022-06-13 12:55] LABS: Troponin-I High Sensitivity > 3600.0 ng/L (<3.5-35.0)
[2022-06-13 13:27] LABS: Reflex Lactate? 2 Y
--- NOTE | 2022-06-13 13:55 | MHC.EDTECH ---
camera placed in patients room.
--- NOTE | 2022-06-13 14:20 | PM.CCN ---
Critical Care Event Note Summary Date of Service: 06/13/22 Code activated: No Narrative: 87-year-old gentleman with underlying AFib, hypothyroidism, hypertension, systolic heart failure being evaluated for admission for possible sepsis with unclear source versus NSTEMI. On my exam patient is confused (which is baseline, per patient's ), normotensive with systolic blood pressure in 110's, no tachycardia. Maintaining normal oximetry on 0-1 L of supplemental oxygen, when pulse oximetry has normal pickle pumper. Laboratory studies significant for mild leukocytosis with worsening lactate, and unclear troponin trend secondary to low upper limit cut-off, but no acute ST changes on EKG. Agree with broad-spectrum antibiotic coverage. Left lower extremity venous stasis dermatitis is an unlikely source. At this time patient does not require intensive care level of monitoring, please notify for re-evaluation, if patient's condition changes. Critical Care Time (minutes): 0
[2022-06-13 14:47] LABS: ~Lactic Acid-LAB USE ONLY 3.7 mmol/L (0.5-2.0)
[2022-06-13] MEDS: Norepinephrine Bitartrate/D5W 8 MG/250 ML PLAST..BAG 9.93 MG IV (14:51)
--- NOTE | 2022-06-13 14:52 | PC.NURSE ---
PER DR SILVIA BELL TO INFUSE NOREPINEPHRINE THROUGH 18G IV IN THE LAC FOR A SHORT TIME TO IMPROVE PTS BP STARTED AT 0.05 MCG/KG/MIN DOSE RATE OF 9.93 ML/HR. PT BP 93/55 (66), HR 90, RR25, OS 95% ON 2L
[2022-06-13] MEDS: Albumin Human 25 % 100 ML IV ×2 (15:35→17:10)
--- NOTE | 2022-06-13 15:43 | PC.NURSE ---
[facility] CATH PLACED FOR PT COMFORT AND CONTINENCE.
--- NOTE | 2022-06-13 15:48 | PC.NURSE ---
pharmacy to mix 1750mg Vancomycin - awaiting med delivery
--- NOTE | 2022-06-13 15:57 | P.HPCC_ITS ---
History of Present Illness Date of Service: 06/13/22 Chief Complaint: Fever, hypotension 87-year-old gentleman with underlying history of AFib, hypothyroidism, hypertension, systolic heart failure admitted on 06/13/2022 from nursing facility for complains of hypertension and fever. On ER evaluation patient febrile with poor response to initial IV fluids started on broad-spectrum antibiotics and vasopressor support and admitted to the intensive care unit. Review of Systems Review of Systems: Yes Unobtainable due to mental status Neurologic: Reports confusion Psychiatric: Psychiatric: Reports confusion [facility] Past Medical History Medical History (Updated 06/13/22 @ 16:02 by Gibson Keys MD) Afib Atrial flutter Cardiomyopathy Chronic anticoagulation Diarrhea HFrEF (heart failure with reduced ejection fraction) ICD (implantable cardioverter-defibrillator) in place NSVT (nonsustained ventricular tachycardia) Pneumatosis coli Family History Family History Father No problems noted. Mother No problems noted. Surgical History Surgical History H/O prostatectomy Social History Social History Household Members: None Housing: Assisted Living Facility Do you presently have visiting nurse or other home services: No Alcohol intake: never Patient Tobacco Use Status: Never used Tobacco Smoked in Last 30 Days: No Use of substances other than those prescribed or required for medical reasons: No Advance Directives: Yes Advance Directives on File: Yes Advance Directives Date on File: 02/10/22 Nutrition Risks: Difficulty chewing, Difficulty swallowing and On aspiration precautions service: Yes Current occupational status: retired [employer] Allergies Allergy/AdvReac Type Severity Reaction Status Date / Time No Known Allergies Allergy Verified 06/08/22 10:37 [No Known Allergies*] Active Medications: Current Medications Norepinephrine Bitartrate (Levophed) 8 mg in 250 mls @ 0 mls/hr IV .Q0M CLINT; Protocol Last Admin: 06/13/22 14:51 Dose: 0.05 mcg/kg/min, 9.93 mls/hr Albumin Human (Kedbumin 25 %) 100 mls @ 100 mls/hr IV Q1H CLINT Stop: 06/13/22 17:14 Last Admin: 06/13/22 15:35 Dose: 100 mls/hr Piperacillin Sod/Tazobactam (Sod 3.375 gm/ Sodium Chloride) 50 mls @ 100 mls/hr IV Q6H CLINT Vancomycin HCl 1,000 mg/Vancomycin HCl 750 mg/ Sodium Chloride 535 mls @ 267.5 mls/hr IV ONCE ONE Stop: 06/13/22 17:11 Pharmacy Consult (Consult Rx Perform Med Rec) 1 each MISCELLANE ONCE PRN PRN Reason: Consult order Home Medications Medication Instructions Recorded Confirmed Last Taken Type lisinopril 2.5 mg tablet 2.5 mg PO DAILY@0800 01/18/20 06/13/22 2 Days Ago History ~05/17/22 acetaminophen 500 mg tablet 500 mg PO BID PRN Pain 04/10/21 06/13/22 2 Days Ago History ~05/17/22 cilostazol 50 mg tablet 50 mg PO BID 04/10/21 06/13/22 2 Days Ago History ~05/17/22 levothyroxine 25 mcg tablet 1 tab PO DAILY@0600 04/10/21 06/13/22 2 Days Ago History ~05/17/22 bisacodyl 10 mg rectal suppository 10 mg UT DAILY PRN Constipation 05/19/22 06/13/22 2 Days Ago History ~05/17/22 magnesium hydroxide 400 mg/5 mL 30 ml PO DAILY PRN Constipation 05/19/22 06/13/22 2 Days Ago History oral suspension (Milk of Magnesia) ~05/17/22 oxycodone 5 mg tablet 5 mg PO Q8H PRN Mod/Severe Pain 05/19/22 06/13/22 2 Days Ago History (Scale Score 4-10) ~05/17/22 sodium phosphates 19 gram-7 118 ml UT DAILY PRN Constipation 05/19/22 06/13/22 2 Days Ago History gram/118 mL enema (Fleet Enema) ~05/17/22 zinc oxide 1 appl topical BID 05/19/22 06/13/22 2 Days Ago History ~05/17/22 amiodarone 200 mg tablet 200 mg PO DAILY@0800 06/13/22 06/13/22 Unknown History cholecalciferol (vitamin D3) 50 50 mcg PO DAILY 06/13/22 06/13/22 Unknown History mcg (2,000 unit) capsule metoprolol tartrate 25 mg tablet 12.5 mg PO TID 06/13/22 06/13/22 Unknown History Physical Exam Vital Signs: Vital Signs: Last Vital Signs Temp 101.5 F H 06/13/22 14:18 Pulse 97 06/13/22 15:42 Resp 24 H 06/13/22 15:42 BP 105/58 L 06/13/22 15:42 Pulse Ox 94 06/13/22 15:42 O2 Del Method 06/13/22 15:42 O2 Flow Rate 2 06/13/22 15:42 Oxygen Flow Rate 4 06/13/22 08:47 BMI result Body Mass Index 32.5 Const: General: no acute distress, alert, awake and confusion Nutritional Appearance: overweight and Edematous Orientation/consciousness: confusion Eyes: Sclerae: sclerae normal EOM: EOMs intact bilaterally Neck: Neck: Yes no lymphadenopathy, Yes trachea midline and Yes supple Resp: Effort & Inspection: normal respiratory effort and no respiratory distress Auscultation: crackles (Bibasilar) Cardio: Rate: regular rate Rhythm: regular rhythm Heart sounds: no gallops, no murmurs and no rubs GI: Palpation (GI): Soft to palpation and Other GI palpation findings present ( Nontender) Auscultation: normal bowel sounds Neuro: General: confusion Extrem: General: No clubbing, No cyanosis, Yes edema (2+ bilateral) and Yes other (Venous stasis dermatitis) Results Labs 06/13/22 09:05 06/13/22 11:07 Labs: Laboratory Results - last 24 hr 06/13/22 06/13/22 06/13/22 08:28 09:05 09:05 MCV 97.6 MCH 32.0 MCHC 32.7 RDW 15.3 Plt Count 181 MPV 11.3 Immature Gran % (Auto) 0.8 H Neut % (Auto) 91.7 H Lymph % (Auto) 3.5 L [place] % (Auto) 3.7 Eos % (Auto) 0.1 Baso % (Auto) 0.2 Lymph # (Auto) 0.4 L [place] # (Auto) 0.5 Eos # (Auto) 0.0 Baso # (Auto) 0.0 Abs Immat Gran (auto) 0.10 H Absolute Neuts (auto) 11.4 H Absolute Nucleated RBC 0.000 Nucleated RBC % (auto) 0.0 Smear Tech's Comments VERIFIED PT 21.9 H INR 1.9 H APTT 35.5 Anion Gap Estim Creat Clear Calc Estimated GFR POC Glucose 96 Random Glucose Lactic Acid Lactic Acid F/U @ 2Hr Lactic Acid F/U @ 4Hr Calcium Total Creatine Kinase Troponin I High Sens Urine Color Urine Appearance Urine pH Ur Specific [place] Urine Protein Urine Glucose (UA) Urine Ketones Urine Blood Urine Nitrite Ur Leukocyte Esterase Urine RBC Urine WBC Ur Squamous Epith Cells Urine Bacteria Hyaline Casts Influenza Type A (PCR) Influenza Type B (PCR) RSV RNA Qual (PCR) SARS-CoV-2 RNA (RT-PCR) 06/13/22 06/13/22 06/13/22 09:05 09:05 09:05 MCV MCH MCHC RDW Plt Count MPV Immature Gran % (Auto) Neut % (Auto) Lymph % (Auto) [place] % (Auto) Eos % (Auto) Baso % (Auto) Lymph # (Auto) [place] # (Auto) Eos # (Auto) Baso # (Auto) Abs Immat Gran (auto) Absolute Neuts (auto) Absolute Nucleated RBC Nucleated RBC % (auto) Smear Tech's Comments PT INR APTT Anion Gap Estim Creat Clear Calc Estimated GFR POC Glucose Random Glucose Lactic Acid 3.2 H* Lactic Acid F/U @ 2Hr Lactic Acid F/U @ 4Hr Calcium Total Creatine Kinase Troponin I High Sens > 3600.0 H* Urine Color Urine Appearance Urine pH Ur Specific [place] Urine Protein Urine Glucose (UA) Urine Ketones Urine Blood Urine Nitrite Ur Leukocyte Esterase Urine RBC Urine WBC Ur Squamous Epith Cells Urine Bacteria Hyaline Casts Influenza Type A (PCR) NEGATIVE Influenza Type B (PCR) NEGATIVE RSV RNA Qual (PCR) NEGATIVE SARS-CoV-2 RNA (RT-PCR) NEGATIVE 06/13/22 06/13/22 06/13/22 10:03 11:07 11:20 MCV MCH MCHC RDW Plt Count MPV Immature Gran % (Auto) Neut % (Auto) Lymph % (Auto) [place] % (Auto) Eos % (Auto) Baso % (Auto) Lymph # (Auto) [place] # (Auto) Eos # (Auto) Baso # (Auto) Abs Immat Gran (auto) Absolute Neuts (auto) Absolute Nucleated RBC Nucleated RBC % (auto) Smear Tech's Comments PT INR APTT Anion Gap 18 Estim Creat Clear Calc 24.0 Estimated GFR 22 POC Glucose Random Glucose 87 Lactic Acid Lactic Acid F/U @ 2Hr 3.7 H* Lactic Acid F/U @ 4Hr Calcium 8.3 L Total Creatine Kinase 997 H Troponin I High Sens Urine Color Dark Yellow Urine Appearance Cloudy Urine pH 5.0 Ur Specific [place] 1.025 Urine Protein 30 (1+) H Urine Glucose (UA) Negative Urine Ketones Trace Urine Blood Negative Urine Nitrite Negative Ur Leukocyte Esterase Trace H Urine RBC 0-2 Urine WBC 0-5 Ur Squamous Epith Cells 3-5 Urine Bacteria None Seen Hyaline Casts 0-2 Influenza Type A (PCR) Influenza Type B (PCR) RSV RNA Qual (PCR) SARS-CoV-2 RNA (RT-PCR) 06/13/22 06/13/22 12:08 14:08 MCV MCH MCHC RDW Plt Count MPV Immature Gran % (Auto) Neut % (Auto) Lymph % (Auto) [place] % (Auto) Eos % (Auto) Baso % (Auto) Lymph # (Auto) [place] # (Auto) Eos # (Auto) Baso # (Auto) Abs Immat Gran (auto) Absolute Neuts (auto) Absolute Nucleated RBC Nucleated RBC % (auto) Smear Tech's Comments PT INR APTT Anion Gap Estim Creat Clear Calc Estimated GFR POC Glucose Random Glucose Lactic Acid Lactic Acid F/U @ 2Hr Lactic Acid F/U @ 4Hr 3.7 H* Calcium Total Creatine Kinase Troponin I High Sens > 3600.0 H* Urine Color Urine Appearance Urine pH Ur Specific [place] Urine Protein Urine Glucose (UA) Urine Ketones Urine Blood Urine Nitrite Ur Leukocyte Esterase Urine RBC Urine WBC Ur Squamous Epith Cells Urine Bacteria Hyaline Casts Influenza Type A (PCR) Influenza Type B (PCR) RSV RNA Qual (PCR) SARS-CoV-2 RNA (RT-PCR) Imaging Radiologist's Impressions: Impressions Head CT 06/13/22 08:43 IMPRESSION: No acute intracranial process seen. This critical result was discussed with Dr. Ambrosio wagner at 8:15 AM on 06/13/2022. It was ascertained that the content and urgency of the report was understood at the time of direct communication. Chest X-Ray 06/13/22 09:42 IMPRESSION: Central vascular prominence and probable mild interstitial pulmonary edema. Bibasilar atelectasis/infiltrate. Assessment and Plan (1) Hypotension: Status: Acute (2) NSTEMI (non-ST elevated myocardial infarction): Status: Acute (3) HFrEF (heart failure with reduced ejection fraction): Status: Acute (4) Afib: Status: Acute Plan Assessment: 87-year-old gentleman been admitted for hypotension now requiring pressor support, likely septic, though may also have a cardiac component. Plan: Neuro: No acute issues. Cardiac: NSTEMI. 2D echocardiogram ordered. Pulmonary: No acute issues. Renal: Acute renal failure likely secondary to underlying worsening congestive heart failure. Continue to monitor renal indices and urine output. Endo: No acute issues. GI: No acute issues. ID: Cultures are pending. Empirically covered with broad-spectrum antibiotics. Heme/Onc: No acute issues. Psych: No acute issues. Miscellaneous: No acute issues. Prophylaxis: Compression stockings Diet: Pending swallow evaluation Critical care time spent: 45 minutes Time Spent With Patient Time: Total time managing care of this patient today ____ minutes.
--- NOTE | 2022-06-13 16:07 | PM.SEPBOLA4 ---
Sepsis Bolus Exclusion Sepsis Bolus Exclusion Date of Occurrence: 06/13/22 This patient met severe sepsis criteria due to the following condition(s):: Hypotension In my clinical judgement the administration of 30 ml/kg of crystalloid would be detrimental to this patient due to the patient's following conditions:: NYHA class III or IV Heart Failure(symptoms with low exertion or rest) and Concern for fluid overload Replace the 30 mls/kg with (*zero amount not acceptable): *Note: One of the hemphill must be documented Colloids amount given in mls:: 200 At a rate of (must be > 125 cchr):: 133
[2022-06-13] MEDS: vancomycin HCL 1,000 MG, vancomycin HCL 750 MG in 0.9 % Sodium Chloride 500 ML 267.5 MG IV (16:55)
[2022-06-13 20:59] LABS: Basophils Percent Auto 0.2 % (0-2); PLT CLUMP 1; Red Blood Count 2.91 X10*6/uL (4.60-5.80); SCAN SMEAR FLAG 1
[2022-06-13 21:01] LABS: Hematocrit 29.4 % (42.0-52.0); Hemoglobin 9.6 g/dl (14.0-18.0); Imm Gran Pct Auto 0.8 % (0.0-0.4); Lymphocytes Absolute Auto 0.9 X10*3/uL (1.2-4.9); Lymphocytes Percent Auto 7.3 % (20-40); Mean Corpuscular HGB Conc 32.7 g/dl (31.0-36.0); Mean Platelet Volume 11.3 fL (9.4-12.4); Monocytes Absolute Auto 0.3 X10*3/uL (0.1-1.2); Monocytes Percent Auto 2.2 % (2-11); Neutrophils Absolute Auto 11.4 x10*3/uL (2.0-8.3); Neutrophils Percent Auto 89.5 % (45-73); Red Cell Distribution Width 15.8 % (11.0-16.0)
[2022-06-13 21:14] LABS: Platelet Count 124 X10*3/uL (160-400); White Blood Count 12.7 X10*3/uL (4.8-10.8)
[2022-06-13 21:15] LABS: MANUAL DIFF FLAG NO
[2022-06-13 21:16] LABS: Alanine Aminotransferase 229 U/L (0-40); Albumin Level 3.5 g/dL (3.5-5.0); Alkaline Phosphatase 85 U/L (39-117); Anion Gap 18 (12-20); Aspartate Amino Transferase 486 U/L (5-37); Bilirubin Total 1.1 mg/dL (0.0-1.0); Blood Urea Nitrogen 42 mg/dL (9-16); Calcium 7.8 mg/dL (8.4-10.2); Carbon Dioxide 17 mmol/L (22-29); Chloride 112 mmol/L (96-108); Creatinine Clr Calc Pharmacy 21.8; Estimated Glomerular Filt Rate 20; Glucose Random 82 mg/dL (60-115); Magnesium 1.9 mg/dL (1.6-2.6); Phosphorus 3.5 mg/dL (2.7-4.5); Sodium 142 mmol/L (135-145); Total Protein 6.2 g/dL (6.5-8.0)
[2022-06-13 21:30] LABS: Troponin-I High Sensitivity > 3600.0 ng/L (<3.5-35.0)
[2022-06-13 22:52] LABS: Reflex Lactate? Lactic Acid Added
[2022-06-13] MEDS: Heparin Sodium,Porcine/1/2NS 25,000 UNIT/250 ML IV.SOLN 10 UNIT IVCONT (22:54)
[2022-06-13] MEDS: fentaNYL citrate/PF 100 MCG/2 ML VIAL 50 MCG IVPUSH (23:29)
[2022-06-13 23:37] LABS: ~Lactic Acid-LAB USE ONLY 2.5 mmol/L (0.5-2.0)
[2022-06-14] VITALS (17 sets, daily range): BP systolic 82–128; BP diastolic 52–97; PULSE 85–107; RESP 16–28; TEMP 35.9–37.1; O2SAT 90–96; BMI 32.4
[2022-06-14] MEDS: Piperacillin Sodium/Tazobactam 3.375 GM in 0.9 % Sodium Chloride 50 ML IV ×4 (00:34→17:26)
[2022-06-14 01:23] LABS: Reflex Lactate? 2 Y
[2022-06-14 03:02] LABS: ~Lactic Acid-LAB USE ONLY 2.3 mmol/L (0.5-2.0)
[2022-06-14 06:44] LABS: PTT Heparin Drip 76.6 SEC (53-77.9)
--- NOTE | 2022-06-14 07:00 | CA_ITS ---
Transthoracic Echocardiogram Patient (Last, First, Middle): Jr Dsouza, Gender: Male Date of : 1935 Age: 87 Procedure Date: 06/14/2022 Procedure Type: Transthoracic Echocardiogram Location: [facility] – [place] Height: 180.34 cm Weight: 105.69 kg BSA: 2.25 m2 Heart Rate: bpm BP: 107 / 73 mmHg Security Technician: SB Referring MD: Gibson Keys MD Architectural Engineer: Javier Dooley MD Symptoms: NSTEMI Study Quality: Fair/Contrast ECG Rhythm: Arrhythmia Conclusions: - 1. Moderate to severe reduction LV systolic function with diffuse multi segment wall motion abnormality which could suggest stress-induced cardiomyopathy 2. Dilated right ventricle with severely reduced systolic function 3. Mildly dilated left atrium 4. Mild mitral regurgitation 5. Mildly dilated ascending aorta 6. Normal RV systolic pressure 7. No gross pericardial effusion Findings Procedure Information Contrast agent, definity, is being given per protocol without apparent complications. Left Ventricle Normal left ventricular cavity size. There is normal left ventricular wall thickness. The left ventricular systolic function is moderate to severely decreased. The visually estimated ejection fraction is between 30-35%. Diastolic function is indeterminate on the basis of available data. Wall Motion Rest Echo Findings The inferoseptal wall, anterolateral wall, inferolateral wall, the basal inferior, basal anterior, mid anterior, mid inferior, basal anteroseptal, and mid anteroseptal segments are hypokinetic. The entire apex is akinetic. Right Ventricle Moderately increased right ventricular cavity size. There is severely decreased right ventricular systolic function. The right ventricular free wall is normal, the lateral wall is hypokinetic, and the apex is akinetic. There is an ICD wire seen in the right ventricle. Atria The left atrium is mildly dilated. There is no evidence of interatrial shunt. The right atrium is likely dilated. Aortic Valve There is mild calcification of the aortic valve. There is no aortic valve stenosis. There is no aortic valve regurgitation. Mitral Valve There is mild anterior and posterior mitral leaflet thickening. There is mild mitral valve regurgitation. There is no mitral valve stenosis. Pulmonic Valve The pulmonic valve was not well visualized. Tricuspid Valve Likely normal tricuspid valve structure and function. There is mild to moderate tricuspid valve regurgitation. Mildly elevated right atrial pressure. There is no evidence of pulmonary hypertension. Great Vessels The pulmonary artery was not well visualized. There is mild dilatation of the ascending aorta measuring 3.90 cm. Venous The inferior vena cava is moderately dilated and collapses less than 50% with inspiration. Pericardium/Pleural There is no evidence of pericardial effusion. Prior Study Comparison Changes noted compared to prior study dated: 09/22/2020. LV and RV systolic functions are significantly reduced. Wall motion abnormality could suggest stress-induced cardiomyopathy Measurements 2D Linear Measurements IVSd: 1.05 0.6-0.9/0.6-1.0 cm LVIDd: 4.66 3.9-5.3/4.2-5.9 cm LVIDd Index: 2.07 2.4-3.2/2.2-3.1 cm/m2 LVIDs: 3.76 2.0-3.6 cm LVPWd: 0.93 0.7-1.1 cm LA Diam: 4.20 2.7-3.8/3.0-4.0 cm LAIDs Index: 1.87 1.5-2.3 cm/m2 LV Mass: 199.22 67-162/88-224 g LV Mass Index: 88.54 43-95/49-115 g/m2 LVOT Diam: 2.50 3.0+(-)1.3 cm 2D Systolic Function EF 4C: 34.70 >55% EF 2C: 32.50 >55% EF BiP: 33.60 >55% Mitral Valve MV Pk E: 0.75 MV PK A: 0.23 MV Decel Time: 176.00 E/A: 3.20 E'Lateral: 6.34 E'Medial: 3.57 E/E' Med: 20.90 E/E' Lat: 11.80 PHT: 51.00 MVA PHT: 4.31 Decel [place]: 4.25 Aortic Valve AoV Pk Haresh: 1.00 AoV Pk Grad: 4.00 CASSY: 3.29 LVOT LVOT Pk Haresh: 0.67 LVOT Mn Haresh: 0.46 LVOT VTI: 0.10 LVOT Pk Grad: 2.00 LVOT Mn Grad: 1.00 LVOT Diam: 2.50 LVOT Area: 4.91 Diastolic Function MV Pk E: 0.75 MV Pk A: 0.23 E/A: 3.20 E'Medial: 3.57 E/E' Med: 20.90 E' Laterial: 6.34 E/E' Lat: 11.80 Right Ventricle TAPSE (mm): 6.19 TVS' Haresh: 12.70 Tricuspid Valve TR Pk Haresh: 2.32 TR Pk Grad: 22.00 RA Press: 8.00 RVSP: 30.00 Great Vessels Aorta Sinus of Valsalva: 3.60 2.0-3.5 cm Ao Asc: 3.90 2.1-3.4 cm Pulmonary Valve PV Pk Haresh: 0.80 Peak PV Grad: 3.00 Updated in Other Vendor System with Status of Final Javier Dooley MD electronically signed on 06/14/2022 11:16:30 AM with status of Final
[2022-06-14 07:02] LABS: Basophils Percent Auto 0.1 % (0-2); Hematocrit 29.7 % (42.0-52.0); Hemoglobin 9.8 g/dl (14.0-18.0); Imm Gran Pct Auto 0.6 % (0.0-0.4); Lymphocytes Absolute Auto 1.1 X10*3/uL (1.2-4.9); Lymphocytes Percent Auto 7.1 % (20-40); MANUAL DIFF FLAG SCAN; Mean Corpuscular Hemoglobin 32.2 pg (27.0-33.0); Mean Corpuscular Volume 97.7 fL (80.0-98.0); Mean Platelet Volume 11.4 fL (9.4-12.4); Monocytes Absolute Auto 0.3 X10*3/uL (0.1-1.2); Monocytes Percent Auto 2.1 % (2-11); Neutrophils Absolute Auto 13.9 x10*3/uL (2.0-8.3); Neutrophils Percent Auto 90.1 % (45-73); Platelet Count 109 X10*3/uL (160-400); Red Blood Count 3.04 X10*6/uL (4.60-5.80); Red Cell Distribution Width 15.9 % (11.0-16.0); SCAN SMEAR FLAG 1; White Blood Count 15.4 X10*3/uL (4.8-10.8)
[2022-06-14 07:44] LABS: SLIDE REVIEW VERIFIED
[2022-06-14 08:05] LABS: Troponin-I High Sensitivity > 3600.0 ng/L (<3.5-35.0)
[2022-06-14 08:41] LABS: Alanine Aminotransferase 588 U/L (0-40); Albumin Level 3.5 g/dL (3.5-5.0); Alkaline Phosphatase 90 U/L (39-117); Anion Gap 21 (12-20); Aspartate Amino Transferase 1156 U/L (5-37); Blood Urea Nitrogen 49 mg/dL (9-16); Calcium 8.2 mg/dL (8.4-10.2); Carbon Dioxide 14 mmol/L (22-29); Chloride 114 mmol/L (96-108); Creatinine Clr Calc Pharmacy 22.1; Estimated Glomerular Filt Rate 20; Glucose Random 90 mg/dL (60-115); Magnesium 2.1 mg/dL (1.6-2.6); Phosphorus 3.8 mg/dL (2.7-4.5); Potassium 4.6 mmol/L (3.3-5.1); Sodium 144 mmol/L (135-145); Total Protein 6.4 g/dL (6.5-8.0)
[2022-06-14 08:46] LABS: Bilirubin Total 1.4 mg/dL (0.0-1.0)
--- NOTE | 2022-06-14 10:02 | P.PNCC_ITS ---
Subjective Subjective Date of Service: 06/14/22 Interval History: 87-year-old gentleman with underlying history of AFib, hypothyroidism, hypertension, systolic heart failure admitted on 06/13/2022 from nursing facility for complains of hypertension and fever. On ER evaluation patient febrile with poor response to initial IV fluids started on broad-spectrum antibiotics and vasopressor support and admitted to the intensive care unit. Pressors titrated of when patient transferred to intensive care unit. Overnight with worsening CPK, troponin unrevealing, no dynamic ST changes. This a.m. with evidence of ischemic hepatitis, ischemic ATN, and 2D echocardiogram with bedside impression of multiple wall motion abnormalities with reduced ejection fraction. Also with worsening oliguria. Started on heparin drip. Blood cultures growing Gram- positive cocci. Critical Care Time (minutes): 0 Physical Exam Vital Signs: Vital Signs: Last Vital Signs Temp 97.6 F 06/14/22 09:52 Pulse 85 06/14/22 09:52 Resp 20 06/14/22 09:52 BP 82/52 L 06/14/22 09:52 Pulse Ox 94 06/14/22 09:52 O2 Del Method Nasal Cannula 06/14/22 09:52 O2 Flow Rate 3 06/14/22 09:52 Oxygen Flow Rate 4 06/13/22 08:47 BMI result Body Mass Index 32.4 Const: General: no acute distress, alert, awake and confusion Nutritional Appearance: Edematous Orientation/consciousness: confusion Eyes: Sclerae: sclerae normal EOM: EOMs intact bilaterally Neck: Neck: Yes no lymphadenopathy, Yes trachea midline and Yes supple Resp: Effort & Inspection: normal respiratory effort and no respiratory distress Auscultation: crackles (Bibasilar) Cardio: Rate: regular rate Rhythm: regular rhythm Heart sounds: no gallops, no murmurs and no rubs GI: Palpation (GI): Soft to palpation and Other GI palpation findings present ( Nontender) Auscultation: normal bowel sounds Neuro: General: confusion Extrem: General: No clubbing, No cyanosis and Yes edema (1+ bilateral) Objective Data Labs 06/14/22 06:35 06/14/22 06:35 Labs: Laboratory Results - last 24 hr 06/13/22 06/13/22 06/13/22 09:05 09:05 10:03 WBC RBC Hgb Hct MCV MCH MCHC RDW Plt Count MPV Immature Gran % (Auto) Neut % (Auto) Lymph % (Auto) [place] % (Auto) Eos % (Auto) Baso % (Auto) Lymph # (Auto) [place] # (Auto) Eos # (Auto) Baso # (Auto) Abs Immat Gran (auto) Absolute Neuts (auto) Absolute Nucleated RBC Nucleated RBC % (auto) Smear Tech's Comments aPTT Heparin Protocol Sodium Potassium Chloride Carbon Dioxide Anion Gap BUN Creatinine Estim Creat Clear Calc Estimated GFR Random Glucose Lactic Acid Lactic Acid F/U @ 2Hr Lactic Acid F/U @ 4Hr Calcium Phosphorus Magnesium Total Bilirubin AST ALT Alkaline Phosphatase Total Creatine Kinase Troponin I High Sens > 3600.0 H* Total Protein Albumin Urine Color Dark Yellow Urine Appearance Cloudy Urine pH 5.0 Ur Specific [place] 1.025 Urine Protein 30 (1+) H Urine Glucose (UA) Negative Urine Ketones Trace Urine Blood Negative Urine Nitrite Negative Ur Leukocyte Esterase Trace H Urine RBC 0-2 Urine WBC 0-5 Ur Squamous Epith Cells 3-5 Urine Bacteria None Seen Hyaline Casts 0-2 Influenza Type A (PCR) NEGATIVE Influenza Type B (PCR) NEGATIVE RSV RNA Qual (PCR) NEGATIVE SARS-CoV-2 RNA (RT-PCR) NEGATIVE 06/13/22 06/13/22 06/13/22 11:07 11:20 12:08 WBC RBC Hgb Hct MCV MCH MCHC RDW Plt Count MPV Immature Gran % (Auto) Neut % (Auto) Lymph % (Auto) [place] % (Auto) Eos % (Auto) Baso % (Auto) Lymph # (Auto) [place] # (Auto) Eos # (Auto) Baso # (Auto) Abs Immat Gran (auto) Absolute Neuts (auto) Absolute Nucleated RBC Nucleated RBC % (auto) Smear Tech's Comments aPTT Heparin Protocol Sodium 141 Potassium 4.8 Chloride 111 H Carbon Dioxide 17 L Anion Gap 18 BUN 34 H Creatinine 2.73 H Estim Creat Clear Calc 24.0 Estimated GFR 22 Random Glucose 87 Lactic Acid Lactic Acid F/U @ 2Hr 3.7 H* Lactic Acid F/U @ 4Hr Calcium 8.3 L Phosphorus Magnesium Total Bilirubin AST ALT Alkaline Phosphatase Total Creatine Kinase 997 H Troponin I High Sens > 3600.0 H* Total Protein Albumin Urine Color Urine Appearance Urine pH Ur Specific [place] Urine Protein Urine Glucose (UA) Urine Ketones Urine Blood Urine Nitrite Ur Leukocyte Esterase Urine RBC Urine WBC Ur Squamous Epith Cells Urine Bacteria Hyaline Casts Influenza Type A (PCR) Influenza Type B (PCR) RSV RNA Qual (PCR) SARS-CoV-2 RNA (RT-PCR) 06/13/22 06/13/22 06/13/22 14:08 20:45 20:45 WBC 12.7 H RBC 2.91 L Hgb 9.6 L Hct 29.4 L MCV 101.0 H MCH 33.0 MCHC 32.7 RDW 15.8 Plt Count 124 L D MPV 11.3 Immature Gran % (Auto) 0.8 H Neut % (Auto) 89.5 H Lymph % (Auto) 7.3 L [place] % (Auto) 2.2 Eos % (Auto) 0.0 Baso % (Auto) 0.2 Lymph # (Auto) 0.9 L [place] # (Auto) 0.3 Eos # (Auto) 0.0 Baso # (Auto) 0.0 Abs Immat Gran (auto) 0.10 H Absolute Neuts (auto) 11.4 H Absolute Nucleated RBC 0.000 Nucleated RBC % (auto) 0.0 Smear Tech's Comments aPTT Heparin Protocol Sodium 142 Potassium 5.0 Chloride 112 H Carbon Dioxide 17 L Anion Gap 18 BUN 42 H Creatinine 3.00 H Estim Creat Clear Calc 21.8 Estimated GFR 20 Random Glucose 82 Lactic Acid Lactic Acid F/U @ 2Hr Lactic Acid F/U @ 4Hr 3.7 H* Calcium 7.8 L D Phosphorus 3.5 Magnesium 1.9 Total Bilirubin 1.1 H AST 486 H ALT 229 H Alkaline Phosphatase 85 Total Creatine Kinase 2451 H Troponin I High Sens Total Protein 6.2 L Albumin 3.5 Urine Color Urine Appearance Urine pH Ur Specific [place] Urine Protein Urine Glucose (UA) Urine Ketones Urine Blood Urine Nitrite Ur Leukocyte Esterase Urine RBC Urine WBC Ur Squamous Epith Cells Urine Bacteria Hyaline Casts Influenza Type A (PCR) Influenza Type B (PCR) RSV RNA Qual (PCR) SARS-CoV-2 RNA (RT-PCR) 06/13/22 06/13/22 06/13/22 20:45 20:45 23:09 WBC RBC Hgb Hct MCV MCH MCHC RDW Plt Count MPV Immature Gran % (Auto) Neut % (Auto) Lymph % (Auto) [place] % (Auto) Eos % (Auto) Baso % (Auto) Lymph # (Auto) [place] # (Auto) Eos # (Auto) Baso # (Auto) Abs Immat Gran (auto) Absolute Neuts (auto) Absolute Nucleated RBC Nucleated RBC % (auto) Smear Tech's Comments aPTT Heparin Protocol Sodium Potassium Chloride Carbon Dioxide Anion Gap BUN Creatinine Estim Creat Clear Calc Estimated GFR Random Glucose Lactic Acid 3.0 H* Lactic Acid F/U @ 2Hr 2.5 H* Lactic Acid F/U @ 4Hr Calcium Phosphorus Magnesium Total Bilirubin AST ALT Alkaline Phosphatase Total Creatine Kinase Troponin I High Sens > 3600.0 H* Total Protein Albumin Urine Color Urine Appearance Urine pH Ur Specific [place] Urine Protein Urine Glucose (UA) Urine Ketones Urine Blood Urine Nitrite Ur Leukocyte Esterase Urine RBC Urine WBC Ur Squamous Epith Cells Urine Bacteria Hyaline Casts Influenza Type A (PCR) Influenza Type B (PCR) RSV RNA Qual (PCR) SARS-CoV-2 RNA (RT-PCR) 06/14/22 06/14/22 06/14/22 02:31 05:50 06:35 WBC 15.4 H RBC 3.04 L Hgb 9.8 L Hct 29.7 L MCV 97.7 MCH 32.2 MCHC 33.0 RDW 15.9 Plt Count 109 L MPV 11.4 Immature Gran % (Auto) 0.6 H Neut % (Auto) 90.1 H Lymph % (Auto) 7.1 L [place] % (Auto) 2.1 Eos % (Auto) 0.0 Baso % (Auto) 0.1 Lymph # (Auto) 1.1 L [place] # (Auto) 0.3 Eos # (Auto) 0.0 Baso # (Auto) 0.0 Abs Immat Gran (auto) 0.10 H Absolute Neuts (auto) 13.9 H Absolute Nucleated RBC 0.000 Nucleated RBC % (auto) 0.0 Smear Tech's Comments VERIFIED aPTT Heparin Protocol 76.6 Sodium Potassium Chloride Carbon Dioxide Anion Gap BUN Creatinine Estim Creat Clear Calc Estimated GFR Random Glucose Lactic Acid Lactic Acid F/U @ 2Hr Lactic Acid F/U @ 4Hr 2.3 H* Calcium Phosphorus Magnesium Total Bilirubin AST ALT Alkaline Phosphatase Total Creatine Kinase Troponin I High Sens Total Protein Albumin Urine Color Urine Appearance Urine pH Ur Specific [place] Urine Protein Urine Glucose (UA) Urine Ketones Urine Blood Urine Nitrite Ur Leukocyte Esterase Urine RBC Urine WBC Ur Squamous Epith Cells Urine Bacteria Hyaline Casts Influenza Type A (PCR) Influenza Type B (PCR) RSV RNA Qual (PCR) SARS-CoV-2 RNA (RT-PCR) 06/14/22 06/14/22 06:35 06:35 WBC RBC Hgb Hct MCV MCH MCHC RDW Plt Count MPV Immature Gran % (Auto) Neut % (Auto) Lymph % (Auto) [place] % (Auto) Eos % (Auto) Baso % (Auto) Lymph # (Auto) [place] # (Auto) Eos # (Auto) Baso # (Auto) Abs Immat Gran (auto) Absolute Neuts (auto) Absolute Nucleated RBC Nucleated RBC % (auto) Smear Tech's Comments aPTT Heparin Protocol Sodium 144 Potassium 4.6 Chloride 114 H Carbon Dioxide 14 L Anion Gap 21 H BUN 49 H Creatinine 2.96 H Estim Creat Clear Calc 22.1 Estimated GFR 20 Random Glucose 90 Lactic Acid Lactic Acid F/U @ 2Hr Lactic Acid F/U @ 4Hr Calcium 8.2 L Phosphorus 3.8 Magnesium 2.1 Total Bilirubin 1.4 H AST 1156 H ALT 588 H Alkaline Phosphatase 90 Total Creatine Kinase 2687 H Troponin I High Sens > 3600.0 H* Total Protein 6.4 L Albumin 3.5 Urine Color Urine Appearance Urine pH Ur Specific [place] Urine Protein Urine Glucose (UA) Urine Ketones Urine Blood Urine Nitrite Ur Leukocyte Esterase Urine RBC Urine WBC Ur Squamous Epith Cells Urine Bacteria Hyaline Casts Influenza Type A (PCR) Influenza Type B (PCR) RSV RNA Qual (PCR) SARS-CoV-2 RNA (RT-PCR) Microbiology Microbiology Results: Microbiology 06/13/22 09:29 Blood - Venous Blood Culture - Preliminary Prelim: GPC Gram Stain only 06/13/22 09:05 Blood - Venous Blood Culture - Preliminary Prelim: GPC Gram Stain only Progress Note: A&P Assessment and plan (1) NSTEMI (non-ST elevated myocardial infarction): Status: Acute (2) HFrEF (heart failure with reduced ejection fraction): Status: Acute (3) Gram-positive bacteremia: Status: Acute (4) Ischemic hepatitis: Status: Acute (5) ATN (acute tubular necrosis): Status: Acute (6) Afib: Status: Acute Plan Assessment: 87-year-old gentleman been admitted with NSTEMI and Gram-positive bacteremia Plan: Neuro: No acute issues. Cardiac: NSTEMI. 2D echocardiogram official read is pending. Rising enzymes. Cardiology is consulted. Now on heparin drip. Acute on chronic systolic congestive heart failure. Pulmonary: Acute hypoxic respiratory failure secondary to underlying and STEMI a with acute on chronic systolic congestive heart failure, continue to titrate off supplemental oxygen as tolerated. Renal: Acute renal failure likely with oliguria. Ischemic ATN. Nephrology service consulted. Continue to monitor renal indices and urine output. Endo: No acute issues. GI: Ischemic hepatitis. Continue to monitor liver enzymes. ID: Gram-positive bacteremia. Cultures are pending. Empirically covered with broad-spectrum antibiotics. Heme/Onc: No acute issues. Psych: No acute issues. Miscellaneous: No acute issues. Prophylaxis: Heparin drip Diet: Pending swallow evaluation Quality Stroke Does the patient have a stroke diagnosis?: No VTE Prior VTE?: No VTE Risk Level:: Medical - moderate - high VTE Device Contraindication: N/A - Device Ordered VTE Drug Contraindication: Treatment Not Indicated
--- NOTE | 2022-06-14 10:20 | P.CONNP_ITS ---
History of Present Illness Reason for Consult Consult date: 06/14/22 Reason for consult: ELYSSA Chief Complaint Chief complaint: Hypotension History of Present Illness Narrative: 87-year-old man with underlying history of AFib, hypothyroidism, hypertension, systolic heart failure admitted on 06/13/2022 from nursing facility for complains of hypertension and fever.? On ER evaluation patient febrile with poor response to initial IV fluids started on broad-spectrum antibiotics and vasopressor support and admitted to the intensive care unit.? Pressors titrated of when patient transferred to intensive care unit.? Overnight with worsening CPK, troponin unrevealing, no dynamic ST changes.? This a.m. with evidence of ischemic hepatitis, ischemic ATN, and 2D echocardiogram with bedside impression of multiple wall motion abnormalities with reduced ejection fraction.? Also with worsening oliguria.? Started on heparin drip.? Blood cultures growing Gram- positive cocci. Review of Systems Review of Systems Yes Unobtainable due to mental status PMFSH Past Medical History Medical History (Updated 06/14/22 @ 10:11 by Gibson Keys MD) Afib Atrial flutter Cardiomyopathy Chronic anticoagulation Diarrhea HFrEF (heart failure with reduced ejection fraction) ICD (implantable cardioverter-defibrillator) in place NSVT (nonsustained ventricular tachycardia) Pneumatosis coli Family History Family History Father No problems noted. Mother No problems noted. Surgical History Surgical History H/O prostatectomy Social History Social History Household Members: Unknown / Unable to assess Housing: Assisted Living Facility Do you presently have visiting nurse or other home services: No Unable to assess alcohol history related to: Unable to respond Alcohol intake: never Patient Tobacco Use Status: Never used Tobacco Smoked in Last 30 Days: No Use of substances other than those prescribed or required for medical reasons: Unknown Currently Displaying Signs/Symptoms of Drug Intoxication Withdrawal: No Advance Directives: Yes Advance Directives on File: Yes Advance Directives Date on File: 02/10/22 Do you have thoughts of harming others: None Do you have a plan to hurt others: No Plan Nutrition Risks: Difficulty chewing, Difficulty swallowing and On aspiration precautions service: Yes Current occupational status: retired Meds Allergies Allergy/AdvReac Type Severity Reaction Status Date / Time No Known Allergies Allergy Verified 06/08/22 10:37 [No Known Allergies*] Active Medications: Current Medications Heparin Sodium (Porcine) (Heparin Sodium,Porcine 5,000 Unit/Ml Vial) 4,200 unit 40 unit/kg (4200 unit) IVPUSH PROTOCOL BOLUS PRN; Protocol PRN Reason: 40 unit/kg - Heparin Protocol Heparin Sodium (Porcine) (Heparin Sodium,Porcine 5,000 Unit/Ml Vial) 8,500 unit 80 unit/kg (8500 unit) IVPUSH PROTOCOL BOLUS PRN; Protocol PRN Reason: 80 unit/kg - Heparin Protocol Piperacillin Sod/Tazobactam (Sod 3.375 gm/ Sodium Chloride) 50 mls @ 100 mls/hr IV Q6H [facility] Last Infusion: 06/14/22 06:57 Dose: Infused Vancomycin HCl 750 mg/ Sodium (Chloride) 265 mls @ 265 mls/hr IV Q24H [facility] Heparin Sodium/Sodium Chloride (Heparin Sodium,Porcine/1/2ns) 25,000 unit in 250 mls @ 0 mls/hr IVCONT .Q0M [facility]; Protocol Last Titration: 06/14/22 06:58 Dose: 9.44 units/kg/hr, 10 mls/hr Albumin Human (Kedbumin 25 %) 100 mls @ 100 mls/hr IV Q1H [facility] Stop: 06/14/22 12:14 Pharmacy Consult (Consult Rx Perform Med Rec) 1 each MISCELLANE ONCE PRN PRN Reason: Consult order Pharmacy Consult (Consult Rx Vancomycin Dosing) 1 each MISCELLANE DAILY PRN PRN Reason: Consult order Home Medications Medication Instructions Recorded Confirmed Last Taken Type lisinopril 2.5 mg tablet 2.5 mg PO DAILY@0800 01/18/20 06/13/22 2 Days Ago History ~05/17/22 acetaminophen 500 mg tablet 500 mg PO BID PRN Pain 04/10/21 06/13/22 2 Days Ago History ~05/17/22 cilostazol 50 mg tablet 50 mg PO BID 04/10/21 06/13/22 2 Days Ago History ~05/17/22 levothyroxine 25 mcg tablet 1 tab PO DAILY@0600 04/10/21 06/13/22 2 Days Ago History ~05/17/22 bisacodyl 10 mg rectal suppository 10 mg RI DAILY PRN Constipation 05/19/22 06/13/22 2 Days Ago History ~05/17/22 magnesium hydroxide 400 mg/5 mL 30 ml PO DAILY PRN Constipation 05/19/22 06/13/22 2 Days Ago History oral suspension (Milk of Magnesia) ~05/17/22 oxycodone 5 mg tablet 5 mg PO Q8H PRN Mod/Severe Pain 05/19/22 06/13/22 2 Days Ago History (Scale Score 4-10) ~05/17/22 sodium phosphates 19 gram-7 118 ml RI DAILY PRN Constipation 05/19/22 06/13/22 2 Days Ago History gram/118 mL enema (Fleet Enema) ~05/17/22 zinc oxide 1 appl topical BID 05/19/22 06/13/22 2 Days Ago History ~05/17/22 amiodarone 200 mg tablet 200 mg PO DAILY@0800 06/13/22 06/13/22 Unknown History cholecalciferol (vitamin D3) 50 50 mcg PO DAILY 06/13/22 06/13/22 Unknown History mcg (2,000 unit) capsule metoprolol tartrate 25 mg tablet 12.5 mg PO TID 06/13/22 06/13/22 Unknown History Physical Exam Vital Signs: Last Vital Signs Temp 97.6 F 06/14/22 09:52 Pulse 85 06/14/22 09:52 Resp 20 06/14/22 09:52 BP 82/52 L 06/14/22 09:52 Pulse Ox 94 06/14/22 09:52 O2 Del Method Nasal Cannula 06/14/22 09:52 O2 Flow Rate 3 06/14/22 09:52 Oxygen Flow Rate 4 06/13/22 08:47 BMI result Body Mass Index 32.4 General: no acute distress, alert, awake and confusion? Nutritional Appearance: overweight and Edematous? Orientation/consciousness: confusion Eyes:?? Sclerae: sclerae normal? EOM: EOMs intact bilaterally Neck:?? Neck: Yes no lymphadenopathy, Yes trachea midline and Yes supple Resp:?? Effort & Inspection: normal respiratory effort and no respiratory distress? Auscultation: crackles (Bibasilar) Cardio:?? Rate: regular rate? Rhythm: regular rhythm? Heart sounds: no gallops, no murmurs and no rubs GI:?? Palpation (GI): Soft to palpation and Other GI palpation findings present (? Nontender)? Auscultation: normal bowel sounds Neuro:?? General: confusion Extrem:?? General: No clubbing, No cyanosis, Yes edema (2+ bilateral) and Yes other (Venous stasis dermatitis) Results Lab Results 06/14/22 06:35 06/14/22 06:35 Lab results: Chemistry 06/13/22 06/13/22 06/14/22 11:07 20:45 06:35 Sodium 141 142 144 Potassium 4.8 5.0 4.6 Carbon Dioxide 17 L 17 L 14 L BUN 34 H 42 H 49 H Creatinine 2.73 H 3.00 H 2.96 H Calcium 8.3 L 7.8 L D 8.2 L Phosphorus 3.5 3.8 Hematology 06/13/22 06/13/22 06/14/22 09:05 20:45 06:35 WBC 12.4 H 12.7 H 15.4 H Hgb 10.8 L 9.6 L 9.8 L Plt Count 181 124 L D 109 L Urinalysis 06/13/22 10:03 Urine Color Dark Yellow Urine Appearance Cloudy Urine pH 5.0 Ur Specific [place] 1.025 Urine Protein 30 (1+) H Urine Glucose (UA) Negative Urine Ketones Trace Urine Blood Negative Urine Nitrite Negative Ur Leukocyte Esterase Trace H Urine RBC 0-2 Urine WBC 0-5 Ur Squamous Epith Cells 3-5 Hyaline Casts 0-2 Assessment and Plan (1) ATN (acute tubular necrosis): Status: Acute (2) Hypotension: Status: Acute Plan 87-year-old man with acute kidney injury superimposed on chronic kidney disease. Acute kidney injury is mostly due to ATN in the setting of sepsis and hypotension. No evidence of obstruction based on the recent CT scan. Urinalysis is bland and therefore glomerulonephritis or interstitial disease seems unlikely at this point. Recommendations Check urine for sodium, creatinine, protein. Optimize blood pressure and maintain systolic blood pressure more than 100 mm of mercury to maintain adequate renal perfusion. Continue to avoid nephrotoxic agents. Keep intake more than the output. Agree with current IV hydration. Cole cat heter for next 24-48 hours to monitor. Agree with antibiotic coverage. Currently on vancomycin and used a high risk for vanco induced renal injury. Watch vanco levels and adjust dose accordingly. Continue to avoid nephrotoxic agents. No absolute indication for dialysis today. We will follow him along with the team Thank you Time Spent With Patient Time: Total time managing care of this patient today ____ minutes. Procedures Date of Service Date of Service: 06/14/22
[2022-06-14] MEDS: Albumin Human 25 % 100 ML IV ×2 (10:36→12:40)
--- NOTE | 2022-06-14 11:51 | PM.CNCAR ---
History of Present Illness History of Present Illness Date of Service: 06/14/22 Requesting physician: Gibson Keys Consult reason: troponin elevation Chief complaint: Hypotension Narrative: I was consulted to see Jr in cardiology consultation today due to elevated troponins. History cannot be obtained from the patient. Patient or assisted resident and was sent here for possible stroke alert and altered mental status. In the ER patient was noted to be febrile with elevated white cell count with low blood pressure and elevated troponins. Patient also noted to have fast heart rate initially appear to be sinus rhythm however overnight appears to be in atrial fibrillation. Patient has prior history of paroxysmal atrial flutter/fibrillation as well as prior history of cardiomyopathy however last echocardiogram in July of 2020 had shown LVEF of 50-55% with improved LV systolic function. He also has a [employer] ICD in place for primary prevention. Patient has not had a cardiology follow-up for many years due to his poor functional status and dementia and is been a assisted resident. We been following his device remotely. He has prior history of peripheral vascular disease, truly low blood pressure has not been able to tolerate neurohormonal modulation in the past. He is on oral anticoagulation therapy due to paroxysmal atrial flutter/fibrillation. Has dementia on currently a assisted resident. Cardiology consult was sought because of elevated troponin which have remained significantly elevated. Patient also hypertensive was initially admitted intensive care unit for vasopressor support. He also is noted to have acute renal failure. He has poor urine output at this point time. Patient also has Gram-positive cocci in blood cultures and appears to have sepsis. Patient has been transferred to [facility] floor this a.m.. Remains hypotensive and has atrial fibrillation with rapid ventricular response. Echocardiogram reviewed showed moderate to severe LV systolic dysfunction with diffuse wall motion abnormality which may suggest stress-induced cardiomyopathy. Review of Systems Review of Systems: Yes Unobtainable due to mental status Neurologic: Reports confusion Psychiatric: Psychiatric: Reports confusion PMFSH Past Medical History Medical History Afib Atrial flutter Cardiomyopathy Chronic anticoagulation Diarrhea HFrEF (heart failure with reduced ejection fraction) ICD (implantable cardioverter-defibrillator) in place NSVT (nonsustained ventricular tachycardia) Pneumatosis coli Family History Family History Father No problems noted. Mother No problems noted. Surgical History Surgical History H/O prostatectomy Social History Social History Household Members: Unknown / Unable to assess Housing: Assisted Living Facility Do you presently have visiting nurse or other home services: No Unable to assess alcohol history related to: Unable to respond Alcohol intake: never Patient Tobacco Use Status: Never used Tobacco Smoked in Last 30 Days: No Use of substances other than those prescribed or required for medical reasons: Unknown Currently Displaying Signs/Symptoms of Drug Intoxication Withdrawal: No Advance Directives: Yes Advance Directives on File: Yes Advance Directives Date on File: 02/10/22 Do you have thoughts of harming others: None Do you have a plan to hurt others: No Plan Nutrition Risks: Difficulty chewing, Difficulty swallowing and On aspiration precautions service: Yes Current occupational status: retired Meds Allergies Allergy/AdvReac Type Severity Reaction Status Date / Time No Known Allergies Allergy Verified 06/08/22 10:37 [No Known Allergies*] Active Medications: Current Medications Heparin Sodium (Porcine) (Heparin Sodium,Porcine 5,000 Unit/Ml Vial) 4,200 unit 40 unit/kg (4200 unit) IVPUSH PROTOCOL BOLUS PRN; Protocol PRN Reason: 40 unit/kg - Heparin Protocol Heparin Sodium (Porcine) (Heparin Sodium,Porcine 5,000 Unit/Ml Vial) 8,500 unit 80 unit/kg (8500 unit) IVPUSH PROTOCOL BOLUS PRN; Protocol PRN Reason: 80 unit/kg - Heparin Protocol Piperacillin Sod/Tazobactam (Sod 3.375 gm/ Sodium Chloride) 50 mls @ 100 mls/hr IV Q6H [facility] Last Admin: 06/14/22 10:46 Dose: 100 mls/hr Vancomycin HCl 750 mg/ Sodium (Chloride) 265 mls @ 265 mls/hr IV Q24H [facility] Heparin Sodium/Sodium Chloride (Heparin Sodium,Porcine/1/2ns) 25,000 unit in 250 mls @ 0 mls/hr IVCONT .Q0M [facility]; Protocol Last Titration: 06/14/22 06:58 Dose: 9.44 units/kg/hr, 10 mls/hr Albumin Human (Kedbumin 25 %) 100 mls @ 100 mls/hr IV Q1H [facility] Stop: 06/14/22 12:14 Last Infusion: 06/14/22 11:42 Dose: Infused Pharmacy Consult (Consult Rx Perform Med Rec) 1 each MISCELLANE ONCE PRN PRN Reason: Consult order Pharmacy Consult (Consult Rx Vancomycin Dosing) 1 each MISCELLANE DAILY PRN PRN Reason: Consult order Home Medications Medication Instructions Recorded Confirmed Last Taken Type lisinopril 2.5 mg tablet 2.5 mg PO DAILY@0800 01/18/20 06/13/22 2 Days Ago History ~05/17/22 acetaminophen 500 mg tablet 500 mg PO BID PRN Pain 04/10/21 06/13/22 2 Days Ago History ~05/17/22 cilostazol 50 mg tablet 50 mg PO BID 04/10/21 06/13/22 2 Days Ago History ~05/17/22 levothyroxine 25 mcg tablet 1 tab PO DAILY@0600 04/10/21 06/13/22 2 Days Ago History ~05/17/22 bisacodyl 10 mg rectal suppository 10 mg SD DAILY PRN Constipation 05/19/22 06/13/22 2 Days Ago History ~05/17/22 magnesium hydroxide 400 mg/5 mL 30 ml PO DAILY PRN Constipation 05/19/22 06/13/22 2 Days Ago History oral suspension (Milk of Magnesia) ~05/17/22 oxycodone 5 mg tablet 5 mg PO Q8H PRN Mod/Severe Pain 05/19/22 06/13/22 2 Days Ago History (Scale Score 4-10) ~05/17/22 sodium phosphates 19 gram-7 118 ml SD DAILY PRN Constipation 05/19/22 06/13/22 2 Days Ago History gram/118 mL enema (Fleet Enema) ~05/17/22 zinc oxide 1 appl topical BID 05/19/22 06/13/22 2 Days Ago History ~05/17/22 amiodarone 200 mg tablet 200 mg PO DAILY@0800 06/13/22 06/13/22 Unknown History cholecalciferol (vitamin D3) 50 50 mcg PO DAILY 06/13/22 06/13/22 Unknown History mcg (2,000 unit) capsule metoprolol tartrate 25 mg tablet 12.5 mg PO TID 06/13/22 06/13/22 Unknown History Physical Exam Vital Signs: Vital Signs: Last Vital Signs Temp 97.6 F 06/14/22 09:52 Pulse 85 06/14/22 09:52 Resp 20 06/14/22 09:52 BP 82/52 L 06/14/22 09:52 Pulse Ox 94 06/14/22 09:52 O2 Del Method Nasal Cannula 06/14/22 09:52 O2 Flow Rate 3 06/14/22 09:52 Oxygen Flow Rate 4 06/13/22 08:47 BMI result Body Mass Index 32.4 Const: General: cooperative, no acute distress, alert, awake and confusion Orientation/consciousness: confusion HEENT: Head: Yes normocephalic and Yes atraumatic Neck: Neck: Yes trachea midline and Yes no JVD Resp: Effort & Inspection: decreased respiratory effort Auscultation: clear to auscultation bilaterally, no rales and no wheezes Cardio: Jugular venous distension: no JVD Rhythm: abnormal rhythm irregularly irregular Heart sounds: S1 normal heart sound present, S2 normal heart sound present, no click, no gallops and no murmurs GI: Auscultation: normal bowel sounds Skin: General skin exam: no rashes or lesions noted and ecchymosis Neuro: General: moves all extremities and confusion Extrem: General: Yes no clubbing, cyanosis or edema Objective Labs and Meds 06/14/22 06:35 06/14/22 06:35 Lab results: Laboratory Results - last 24 hr 06/13/22 06/13/22 06/13/22 11:20 12:08 14:08 WBC RBC Hgb Hct MCV MCH MCHC RDW Plt Count MPV Immature Gran % (Auto) Neut % (Auto) Lymph % (Auto) Coleman % (Auto) Eos % (Auto) Baso % (Auto) Lymph # (Auto) Coleman # (Auto) Eos # (Auto) Baso # (Auto) Abs Immat Gran (auto) Absolute Neuts (auto) Absolute Nucleated RBC Nucleated RBC % (auto) Smear Tech's Comments aPTT Heparin Protocol Sodium Potassium Chloride Carbon Dioxide Anion Gap BUN Creatinine Estim Creat Clear Calc Estimated GFR Random Glucose Lactic Acid Lactic Acid F/U @ 2Hr 3.7 H* Lactic Acid F/U @ 4Hr 3.7 H* Calcium Phosphorus Magnesium Total Bilirubin AST ALT Alkaline Phosphatase Total Creatine Kinase Troponin I High Sens > 3600.0 H* Total Protein Albumin 06/13/22 06/13/22 06/13/22 20:45 20:45 20:45 WBC 12.7 H RBC 2.91 L Hgb 9.6 L Hct 29.4 L MCV 101.0 H MCH 33.0 MCHC 32.7 RDW 15.8 Plt Count 124 L D MPV 11.3 Immature Gran % (Auto) 0.8 H Neut % (Auto) 89.5 H Lymph % (Auto) 7.3 L Coleman % (Auto) 2.2 Eos % (Auto) 0.0 Baso % (Auto) 0.2 Lymph # (Auto) 0.9 L Coleman # (Auto) 0.3 Eos # (Auto) 0.0 Baso # (Auto) 0.0 Abs Immat Gran (auto) 0.10 H Absolute Neuts (auto) 11.4 H Absolute Nucleated RBC 0.000 Nucleated RBC % (auto) 0.0 Smear Tech's Comments aPTT Heparin Protocol Sodium 142 Potassium 5.0 Chloride 112 H Carbon Dioxide 17 L Anion Gap 18 BUN 42 H Creatinine 3.00 H Estim Creat Clear Calc 21.8 Estimated GFR 20 Random Glucose 82 Lactic Acid Lactic Acid F/U @ 2Hr Lactic Acid F/U @ 4Hr Calcium 7.8 L D Phosphorus 3.5 Magnesium 1.9 Total Bilirubin 1.1 H AST 486 H ALT 229 H Alkaline Phosphatase 85 Total Creatine Kinase 2451 H Troponin I High Sens > 3600.0 H* Total Protein 6.2 L Albumin 3.5 06/13/22 06/13/22 06/14/22 20:45 23:09 02:31 WBC RBC Hgb Hct MCV MCH MCHC RDW Plt Count MPV Immature Gran % (Auto) Neut % (Auto) Lymph % (Auto) Coleman % (Auto) Eos % (Auto) Baso % (Auto) Lymph # (Auto) Coleman # (Auto) Eos # (Auto) Baso # (Auto) Abs Immat Gran (auto) Absolute Neuts (auto) Absolute Nucleated RBC Nucleated RBC % (auto) Smear Tech's Comments aPTT Heparin Protocol Sodium Potassium Chloride Carbon Dioxide Anion Gap BUN Creatinine Estim Creat Clear Calc Estimated GFR Random Glucose Lactic Acid 3.0 H* Lactic Acid F/U @ 2Hr 2.5 H* Lactic Acid F/U @ 4Hr 2.3 H* Calcium Phosphorus Magnesium Total Bilirubin AST ALT Alkaline Phosphatase Total Creatine Kinase Troponin I High Sens Total Protein Albumin 06/14/22 06/14/22 06/14/22 05:50 06:35 06:35 WBC 15.4 H RBC 3.04 L Hgb 9.8 L Hct 29.7 L MCV 97.7 MCH 32.2 MCHC 33.0 RDW 15.9 Plt Count 109 L MPV 11.4 Immature Gran % (Auto) 0.6 H Neut % (Auto) 90.1 H Lymph % (Auto) 7.1 L Coleman % (Auto) 2.1 Eos % (Auto) 0.0 Baso % (Auto) 0.1 Lymph # (Auto) 1.1 L Coleman # (Auto) 0.3 Eos # (Auto) 0.0 Baso # (Auto) 0.0 Abs Immat Gran (auto) 0.10 H Absolute Neuts (auto) 13.9 H Absolute Nucleated RBC 0.000 Nucleated RBC % (auto) 0.0 Smear Tech's Comments VERIFIED aPTT Heparin Protocol 76.6 Sodium 144 Potassium 4.6 Chloride 114 H Carbon Dioxide 14 L Anion Gap 21 H BUN 49 H Creatinine 2.96 H Estim Creat Clear Calc 22.1 Estimated GFR 20 Random Glucose 90 Lactic Acid Lactic Acid F/U @ 2Hr Lactic Acid F/U @ 4Hr Calcium 8.2 L Phosphorus 3.8 Magnesium 2.1 Total Bilirubin 1.4 H AST 1156 H ALT 588 H Alkaline Phosphatase 90 Total Creatine Kinase 2687 H Troponin I High Sens Total Protein 6.4 L Albumin 3.5 06/14/22 06:35 WBC RBC Hgb Hct MCV MCH MCHC RDW Plt Count MPV Immature Gran % (Auto) Neut % (Auto) Lymph % (Auto) Coleman % (Auto) Eos % (Auto) Baso % (Auto) Lymph # (Auto) Coleman # (Auto) Eos # (Auto) Baso # (Auto) Abs Immat Gran (auto) Absolute Neuts (auto) Absolute Nucleated RBC Nucleated RBC % (auto) Smear Tech's Comments aPTT Heparin Protocol Sodium Potassium Chloride Carbon Dioxide Anion Gap BUN Creatinine Estim Creat Clear Calc Estimated GFR Random Glucose Lactic Acid Lactic Acid F/U @ 2Hr Lactic Acid F/U @ 4Hr Calcium Phosphorus Magnesium Total Bilirubin AST ALT Alkaline Phosphatase Total Creatine Kinase Troponin I High Sens > 3600.0 H* Total Protein Albumin EKG on admission shows normal sinus rhythm first-degree AV block with right bundle-branch block. Imaging Radiologist's impression: Impressions Abdomen/Pelvis CT 06/14/22 00:09 IMPRESSION: 1. No acute finding in the abdomen or pelvis. No hydronephrosis or nephrolithiasis. 2. Redemonstration of the right inguinal hernia repair with laxity of the abdominal wall in this area. Bowel extends into this area of laxity. No obstruction. 3. Exophytic left lower pole renal lesion is higher than simple fluid attenuation. This was simple fluid on the prior study from 04/10/2021. This could represent a hemorrhagic or proteinaceous cyst. This could be further evaluated with nonemergent ultrasound. Fleischner guidelines were followed. Assessment and Plan (1) NSTEMI (non-ST elevated myocardial infarction): Status: Acute Patient with significant elevated troponin with no clear top level demonstrated due to the lab format. This appears to be secondary to his underlying medical issue and appears by echocardiogram to be probably suggestive stress-induced cardiomyopathy. Although secondary myocardial infarction related to underlying significant coronary artery disease cannot be entirely ruled out. Can manage with IV heparin although should be careful that he is on oral anticoagulation therapy is anemic. Continue to trend hematocrit. Continue supportive care with management of blood pressure, see below. He is not a candidate for invasive management given his marked cognitive dysfunction deleted a.m., sepsis as well as acute kidney injury. This was discussed with intensive care team. 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 His last echocardiogram in 2020 at show near normal LVEF on neurohormonal modulation. At current time there is sudden reduction LV ejection fraction with possible cardiogenic component to his low blood pressure and acute kidney injury. I would avoid all neurohormonal modulation given his low blood pressure at this point time. Supportive care with vasopressors if needed and if family wants aggressive management. It is possible that he has underlying significant coronary artery disease given his advanced age although management would be conservative given his multiple comorbidities as listed above. (3) Hypotension: Status: Acute Hypertension appears to be multifactorial related to sepsis/bacteremia as well as cardiogenic given his sudden reduction LV systolic function which appears to be stress-induced cardiomyopathy. Supportive care should be pursued. Would avoid aggressive hydration given his low stroke volume and LV ejection fraction to prevent congestive heart failure. Clinically currently does appear to be in florid congestive heart failure. (4) Afib: Status: Acute He has had prior history of atrial fibrillation which has been paroxysmal in nature. Currently rate is borderline elevated probably related to his underlying medical condition. Continue supportive care. Can hold his oral anticoagulation therapy given acute renal failure. Continue IV heparin. Continue trend hemoglobin hematocrit. Overall prognosis is guarded and poor. Will follow if need be Time Spent With Patient Time: Total time managing care of this patient today ____ minutes. Procedures Date of Service Date of Service: 06/14/22
[2022-06-14 12:21] LABS: PTT Heparin Drip 85.8 SEC (53-77.9)
--- NOTE | 2022-06-14 13:34 | P.CDIM_ITS ---
PROVIDER RESPONSE TEXT: To clarify, the appropriate diagnosis supported by the clinical indicators: Other: Chronic QUERY TEXT: PHYSICIAN'S DOCUMENTATION REQUEST Date of Query: 06/14/2022 11:44 AM EDT Patient Name: Jr Dsouza Admit Date: 06/13/2022 Dear Gibson Keys, A review of the medical record indicates additional documentation may be needed. Please review below and update the documentation accordingly. Is there a diagnosis that correlates with the findings below: Clinical Indicators: Per provider H&P: Patient awake and confused. Review of systems unobtainable due to mental status. Per ED note: Came in from rehab after was found with garbled speech, acute mental status change with confusion, a nd subjective fever. Per RN shift assessments: Patient is confused, forgetful, and requires frequent redirection. Patient disoriented to place, silvina e, and situation. Other indicators/risk factors: -Patient with sepsis/lactic acidosis -Patient with hypoxic ARF -Patient with ATN Based on the above, please further specify, in the Progress Notes, the known or suspected type of enc ephalopathy, if any: Metabolic Septic Toxic Toxic metabolic Other (Please specify) Other (explain) Clinically unable to determine (explain) Thank you, Lisa Neville, MS, RN, CCRN Use of terms such as suspected, likely, concern for, or probable (associated with a specific diagnosi s that is being evaluated, monitored, or treated as if it exists) are acceptable and can be coded in the inpatient se tting, when documented at the time of discharge. Please use your independent medical judgment in providing your response. THIS QUERY IS PART OF THE PERMANENT MEDICAL RECORD
--- NOTE | 2022-06-14 13:34 | P.CDIM_ITS ---
PROVIDER RESPONSE TEXT: To clarify, the appropriate diagnosis supported by the clinical indicators: Paroxysmal atrial fibrillation QUERY TEXT: PHYSICIAN'S DOCUMENTATION REQUEST Date of Query: 06/14/2022 11:47 AM EDT Patient Name: Jr Dsouza Admit Date: 06/13/2022 Dear Gibson Keys, A review of the medical record indicates additional documentation may be needed. Please review below and update the documentation accordingly. Is there a diagnosis that correlates with the findings below: Clinical Indicators: Per provider H&P: PMH: AFIB and Atrial flutter Per ECG on 06/13: Sinus rhythm with sinus arrhythmia with 1st degree A-V block Right bundle branch block -Patient not on anti-coagulant at home If possible, please provide further specificity regarding atrial fibrillation, such as: Paroxysmal atrial fibrillation Persistent atrial fibrillation Chronic or Permanent atrial fibrillation Other (Please specify) Other (explain) Clinically unable to determine (explain) Thank you, Lisa Neville MS, RN, CCRN Use of terms such as suspected, likely, concern for, or probable (associated with a specific diagnosi s that is being evaluated, monitored, or treated as if it exists) are acceptable and can be coded in the inpatient se tting, when documented at the time of discharge. Please use your independent medical judgment in providing your response. THIS QUERY IS PART OF THE PERMANENT MEDICAL RECORD
--- NOTE | 2022-06-14 13:34 | P.CDIM_ITS ---
PROVIDER RESPONSE TEXT: To clarify, the appropriate diagnosis supported by the clinical indicators: Severe sepsis without septic shock QUERY TEXT: PHYSICIAN'S DOCUMENTATION REQUEST Date of Query: 06/14/2022 11:39 AM EDT Patient Name: Jr Dsouza Admit Date: 06/13/2022 Dear Gibson Keys, A review of the medical record indicates additional documentation may be needed. Please review below and update the documentation accordingly. Documentation on H&P and progress notes included the diagnosis of severe sepsis. Can you please docum ent further specificity, if known. Clinical indicators: Per ED note: 87-year-old male with left leg cellulitis and septic shock Per provider sepsis event note: This patient met severe sepsis criteria due to the following condition(s): Hypotension Other indicators/risk factors: -Patient with sepsis/lactic acidosis -Patient with hypoxic ARF -Patient hypotensive requiring pressure support with Levophed -Patient with ATN -Patient with ischemic hepatitis Based on the above information and the recognized standard for sepsis, could you please clarify speci ficty so that documentation is reflective of the patient's condition to ensure quality of the medical record. Severe sepsis with septic shock Severe sepsis without septic shock Other (Please specify) Other (explain) Clinically unable to determine (explain) Thank you, Lisa Neville MS, RN, CCRN Use of terms such as suspected, likely, concern for, or probable (associated with a specific diagnosi s that is being evaluated, monitored, or treated as if it exists) are acceptable and can be coded in the inpatient se tting, when documented at the time of discharge. Please use your independent medical judgment in providing your response. THIS QUERY IS PART OF THE PERMANENT MEDICAL RECORD
--- NOTE | 2022-06-14 15:13 | MHC.CM.PN ---
Addendum entered by Jannet Johnston 06/14/22 15:40: PER [facility], HE IS A BEDHOLD. Original Note: IMM EXPLAINED TO HCP, WILL SEND WHITE COPY VIA MAIL, YELLOW COPY TO CHART. PT IS CURRENTLY AT [facility]. HE LIV[facility] AT [facility]. W/C FOR MAJOR MOBILITY. +COVID VAX X5 +HCP ON FILE. DP: RETURN TO [facility] ON DC, RETURN REFERRAL SENT. BLS TRANSPORT
[2022-06-14 15:44] LABS: Vancomycin Random 11.8 mcg/mL (15-20)
--- NOTE | 2022-06-14 16:18 | HO.PM.IMPN ---
Subjective Subjective Date of Service: 06/15/22 Interval History: sepsis ,bacteremia, nstemi Review of Systems Patient downgraded today : went to see him ''says fine '' to everythin , ?worsening CPK, troponin unrevealing, no dynamic ST changes.? This a.m. with evidence of ischemic hepatitis, ischemic ATN Physical Exam Vital Signs: Vital Signs: Last Vital Signs Temp 98.3 F 06/14/22 15:12 Pulse 103 H 06/14/22 15:12 Resp 19 06/14/22 15:12 BP 98/80 06/14/22 15:12 Pulse Ox 95 06/14/22 15:12 O2 Del Method Nasal Cannula 06/14/22 15:12 O2 Flow Rate 3 06/14/22 15:12 Oxygen Flow Rate 4 06/13/22 08:47 BMI result Body Mass Index 32.4 Appearance: Alert.? Oriented X2(says his name and his sister name ,he in [place].? not in distress.?moves all ext,follow simplecommands cvs: rrr, [id number] . res: air entry diminshed , no rales or wheezin abd: no rebound or guarding ,nt, bs present. ext pulses present , no cyanosis . neuro: moves allext. Objective Data Active Medications Heparin Sodium (Porcine) (Heparin Sodium,Porcine 5,000 Unit/Ml Vial) 4,200 unit 40 unit/kg (4200 unit) IVPUSH PROTOCOL BOLUS PRN; Protocol PRN Reason: 40 unit/kg - Heparin Protocol Heparin Sodium (Porcine) (Heparin Sodium,Porcine 5,000 Unit/Ml Vial) 8,500 unit 80 unit/kg (8500 unit) IVPUSH PROTOCOL BOLUS PRN; Protocol PRN Reason: 80 unit/kg - Heparin Protocol Piperacillin Sod/Tazobactam (Sod 3.375 gm/ Sodium Chloride) 50 mls @ 100 mls/hr IV Q6H [facility] Last Infusion: 06/14/22 11:52 Dose: 0 mls/hr Documented By: JAZLYN Heparin Sodium/Sodium Chloride (Heparin Sodium,Porcine/1/2ns) 25,000 unit in 250 mls @ 0 mls/hr IVCONT .Q0M [facility]; Protocol Last Titration: 06/14/22 12:52 Dose: 7.44 units/kg/hr, 7.88 mls/hr Documented By: CHRISTOPHER Co-signed By: JAZLYN Pharmacy Consult (Consult Rx Perform Med Rec) 1 each MISCELLANE ONCE PRN PRN Reason: Consult order Pharmacy Consult (Consult Rx Vancomycin Dosing) 1 each MISCELLANE DAILY PRN PRN Reason: Consult order Labs 06/14/22 06:35 06/14/22 06:35 Labs: Laboratory Results - last 24 hr 06/13/22 06/13/22 06/13/22 20:45 20:45 20:45 MCV 101.0 H MCH 33.0 MCHC 32.7 RDW 15.8 Plt Count 124 L D MPV 11.3 Immature Gran % (Auto) 0.8 H Neut % (Auto) 89.5 H Lymph % (Auto) 7.3 L [place] % (Auto) 2.2 Eos % (Auto) 0.0 Baso % (Auto) 0.2 Lymph # (Auto) 0.9 L [place] # (Auto) 0.3 Eos # (Auto) 0.0 Baso # (Auto) 0.0 Abs Immat Gran (auto) 0.10 H Absolute Neuts (auto) 11.4 H Absolute Nucleated RBC 0.000 Nucleated RBC % (auto) 0.0 Smear Tech's Comments aPTT Heparin Protocol Anion Gap 18 Estim Creat Clear Calc 21.8 Estimated GFR 20 Random Glucose 82 Lactic Acid Lactic Acid F/U @ 2Hr Lactic Acid F/U @ 4Hr Calcium 7.8 L D Phosphorus 3.5 Magnesium 1.9 Total Bilirubin 1.1 H AST 486 H ALT 229 H Alkaline Phosphatase 85 Total Creatine Kinase 2451 H Troponin I High Sens > 3600.0 H* Total Protein 6.2 L Albumin 3.5 Random Vancomycin 06/13/22 06/13/22 06/14/22 20:45 23:09 02:31 MCV MCH MCHC RDW Plt Count MPV Immature Gran % (Auto) Neut % (Auto) Lymph % (Auto) [place] % (Auto) Eos % (Auto) Baso % (Auto) Lymph # (Auto) [place] # (Auto) Eos # (Auto) Baso # (Auto) Abs Immat Gran (auto) Absolute Neuts (auto) Absolute Nucleated RBC Nucleated RBC % (auto) Smear Tech's Comments aPTT Heparin Protocol Anion Gap Estim Creat Clear Calc Estimated GFR Random Glucose Lactic Acid 3.0 H* Lactic Acid F/U @ 2Hr 2.5 H* Lactic Acid F/U @ 4Hr 2.3 H* Calcium Phosphorus Magnesium Total Bilirubin AST ALT Alkaline Phosphatase Total Creatine Kinase Troponin I High Sens Total Protein Albumin Random Vancomycin 06/14/22 06/14/22 06/14/22 05:50 06:35 06:35 MCV 97.7 MCH 32.2 MCHC 33.0 RDW 15.9 Plt Count 109 L MPV 11.4 Immature Gran % (Auto) 0.6 H Neut % (Auto) 90.1 H Lymph % (Auto) 7.1 L [place] % (Auto) 2.1 Eos % (Auto) 0.0 Baso % (Auto) 0.1 Lymph # (Auto) 1.1 L [place] # (Auto) 0.3 Eos # (Auto) 0.0 Baso # (Auto) 0.0 Abs Immat Gran (auto) 0.10 H Absolute Neuts (auto) 13.9 H Absolute Nucleated RBC 0.000 Nucleated RBC % (auto) 0.0 Smear Tech's Comments VERIFIED aPTT Heparin Protocol 76.6 Anion Gap 21 H Estim Creat Clear Calc 22.1 Estimated GFR 20 Random Glucose 90 Lactic Acid Lactic Acid F/U @ 2Hr Lactic Acid F/U @ 4Hr Calcium 8.2 L Phosphorus 3.8 Magnesium 2.1 Total Bilirubin 1.4 H AST 1156 H ALT 588 H Alkaline Phosphatase 90 Total Creatine Kinase 2687 H Troponin I High Sens Total Protein 6.4 L Albumin 3.5 Random Vancomycin 06/14/22 06/14/22 06/14/22 06:35 11:52 15:07 MCV MCH MCHC RDW Plt Count MPV Immature Gran % (Auto) Neut % (Auto) Lymph % (Auto) [place] % (Auto) Eos % (Auto) Baso % (Auto) Lymph # (Auto) [place] # (Auto) Eos # (Auto) Baso # (Auto) Abs Immat Gran (auto) Absolute Neuts (auto) Absolute Nucleated RBC Nucleated RBC % (auto) Smear Tech's Comments aPTT Heparin Protocol 85.8 H Anion Gap Estim Creat Clear Calc Estimated GFR Random Glucose Lactic Acid Lactic Acid F/U @ 2Hr Lactic Acid F/U @ 4Hr Calcium Phosphorus Magnesium Total Bilirubin AST ALT Alkaline Phosphatase Total Creatine Kinase Troponin I High Sens > 3600.0 H* Total Protein Albumin Random Vancomycin 11.8 L Microbiology Microbiology Results: Microbiology 06/13/22 09:05 Blood Culture - Preliminary Blood - Venous Streptococcus pyogenes (Grp A) 06/13/22 09:29 Blood Culture - Preliminary Blood - Venous Streptococcus pyogenes (Grp A) Assessment and Plan (1) Group A streptococcal infection: Status: Acute (2) Ischemic hepatitis: Status: Acute (3) Gram-positive bacteremia: Status: Acute (4) NSTEMI (non-ST elevated myocardial infarction): Status: Acute (5) Sepsis: Status: Acute Plan 87 y/o M with hx of dementia , NH resident with multiple comorbiditites(AFib, cardiomyopathy, ICD) admitted to ICU with severe sepsis, NSTEMI, hypotension, ELYSSA: Patient was given IV antibiotics, pressors, IV anticoagulation-patient does not seem to be improving, still has ELYSSA and also LFTs are trending up, sent to the floor for further management . NSTEMI (non-ST elevated myocardial infarction): ?seen by cardio: thought secondary to his underlying medical issue echocardiogram to be probably suggestive stress-induced cardiomyopathy vs underlying significant coronary artery disease cannot be entirely ruled out. ? Can manage with IV heparin although should be careful that he is on oral anticoagulation therapy is anemic.? Continue to moniter cbc and management of blood pressure, see below.? He is not a candidate for invasive management given his marked cognitive dysfunction deleted a.m., sepsis as well as acute kidney injury.? Cardiomyopathy: ? ? ? 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 last echocardiogram in 2020 at show near normal LVEF on neurohormonal modulation.? sudden reduction LV ejection fraction with possible cardiogenic component to his low blood pressure and acute kidney injury.? avoid all neurohormonal modulation given his low blood pressure .? It is possible that he has underlying significant coronary artery disease given his advanced age although management would be conservative given his multiple comorbidities as listed above. initail hypotension intial thought to be ?multifactorial related to sepsis/bacteremia as well as cardiogenic given his sudden reduction LV systolic function which appears to be stress-induced cardiomyopathy- was on pressores -off pressors , blood pressure softer, will avoid bp meds and continue antibiotics elyssa: cr 2.9 range moniter i/o thought to be related to hypotension. added nephrology rafa landin haptitis: lfts trending up continue to trend added Gi eval. thought to be related to hypotension. Afib:He has had prior history of atrial fibrillation which has been paroxysmal in nature.? Currently rate is borderline elevated probably related to his underlying medical condition.? Continue supportive care.? Can hold his oral anticoagulation therapy given acute renal failure.? Continue IV heparin.? Continue trend hemoglobin cbc.? sepsis /bacteremia: strep pyogenous(group a) bacteremia left lower leg erythema-? cellulitis throat cultures ua neg,cxr-?grossly clear ,ct abd-seems unchnaged repeat blood culturs continue zosyn for now ,melo marques added Id eval-chnaged to ceftriaxone/clinda Speech and Swallow saw the patient-diet adjusted as per speech and Swallow recommendations. Above management discussed with the patient and his family in detail length(his sister chantelle ): Decided for DNR DNI, continue conservative management if patient condition worsen please call his sister back Time Spent With Patient Time: Total time managing care of this patient today ____ minutes. Quality Stroke Does the patient have a stroke diagnosis?: No VTE Prior VTE?: No VTE Risk Level:: Medical - moderate - high VTE Device Contraindication: N/A - Device Ordered VTE Drug Contraindication: Treatment Not Indicated
[2022-06-14] MEDS: Omeprazole 20 MG CAPSULE.DR PO (17:25)
[2022-06-14] MEDS: Sodium Bicarbonate 650 MG TABLET PO ×2 (17:25→22:23)
--- NOTE | 2022-06-14 18:20 | MHC.SL.SWA ---
Speech Pathologist Impression: Risk of Aspiration Due to: Medically Fragile Reduced Cognition Dysphasia Diet Status: Liquid Consistency and Strategies for Safe Swallow: Liquid Intake Recommendation: [place] Thick Liquid Intake Strategies: Small Sips No Straws Solid Food Consistency: Dietary Recommendations: Grnd/Mech Altered (NDD2) Additional Modifications to Solid Foods: Patient will need full supervision/assistance during meals due to aspiration risk, confusion. Oral Medication Intake: Crushed with Puree Please contact the pharmacy regarding appropriate crushable or liquid drug formulations that are available whenever modified delivery is recommended. Compensatory Strategies and Precautions to be Taken for Safe Swallow: Sitting Upright (90 deg) Liquids from Cup Small Bites and Sips Alternate Liquids/Solids Rate of Ingestion Change Supervision While Eating and Drinking for Safe Swallow: Total Supervision (1:1) Foods to Avoid: Mixed consistencies, difficult to chew solids Swallowing Recommended Treatments: Compens. Strategy Educat. Recommendation for Speech: Inpatient Speech Therapy Comment: Patient presents with a mild to moderate oralpharyngeal dysphagia, with reduced laryngeal elevation noted consistently on swallow, evidence of aspiration on thin liquids, and difficulty managing more advanced solid consistencies. Recommend START diet of Ground Mechanical (NDD2) with NECTAR THICK liquids, pills crushed in puree. Due to level of confusion and aspiration risk, patient would benefit from direct supervision and assistance during meals. , RD notified of recommendation by secure text, discussed with RN in person. NEW AUTOS DELIVERY DRIVER will continue to follow, assess toleration of diet, re-assess swallow for possible upgrade. Frequency/Duration: Date Range for Service Req: Timeline to reassess: Electro Optical Engineer Clinican/Clinical Fellow: No Supervisory Statement: I have reviewed and agree with the student/clinical fellow's documentation: N/A Speech Language Pathologist: Alma Rosa Rhodes M.A., [facility]-NEW AUTOS DELIVERY DRIVER
[2022-06-14] MEDS: cefTRIAXone sodium 1 GM in 0.9 % Sodium Chloride 50 ML IV (20:01)
[2022-06-14 20:09] LABS: Hemoglobin 9.2 g/dl (14.0-18.0); PLT CLUMP 1
[2022-06-14 20:11] LABS: Hematocrit 28.4 % (42.0-52.0); Mean Corpuscular HGB Conc 32.4 g/dl (31.0-36.0); Mean Corpuscular Hemoglobin 31.8 pg (27.0-33.0); Mean Corpuscular Volume 98.3 fL (80.0-98.0); Mean Platelet Volume 12.1 fL (9.4-12.4); Red Blood Count 2.89 X10*6/uL (4.60-5.80); Red Cell Distribution Width 15.9 % (11.0-16.0)
[2022-06-14 20:14] LABS: Platelet Count 80 X10*3/uL (160-400); White Blood Count 12.7 X10*3/uL (4.8-10.8)
[2022-06-14 20:23] LABS: PTT Heparin Drip 64.6 SEC (53-77.9)
[2022-06-14] MEDS: Clindamycin Phosphate/D5W 600 MG/50 ML PIGGYBACK 100 MG IV (22:23)
[2022-06-15] VITALS (9 sets, daily range): BP systolic 93–130; BP diastolic 57–72; PULSE 54–97; RESP 18–22; TEMP 36.5–37.2; O2SAT 91–98
[2022-06-15] MEDS: Heparin Sodium,Porcine/1/2NS 25,000 UNIT/250 ML IV.SOLN 7.88 UNIT IVCONT (01:46)
[2022-06-15] MEDS: Heparin Sodium,Porcine 5,000 UNIT/ML VIAL 4200 UNIT IVPUSH (03:07)
[2022-06-15] MEDS: Clindamycin Phosphate/D5W 600 MG/50 ML PIGGYBACK 100 MG IV ×3 (04:22→21:42)
[2022-06-15 04:52] LABS: Glucose, Whole Blood 128 mg/dL (60-115)
[2022-06-15 05:04] LABS: Hemoglobin 9.1 g/dl (14.0-18.0); PLT CLUMP 1; SCAN SMEAR FLAG 1
[2022-06-15 05:05] LABS: Venous Blood Gas Refer to POC result
[2022-06-15 05:06] LABS: Basophils Percent Auto 0.1 % (0-2); Hematocrit 28.4 % (42.0-52.0); Imm Gran Abs Auto 0.05 X10*3/uL (0.00-0.03); Imm Gran Pct Auto 0.4 % (0.0-0.4); Lymphocytes Absolute Auto 1.3 X10*3/uL (1.2-4.9); Lymphocytes Percent Auto 10.8 % (20-40); Mean Corpuscular Hemoglobin 31.9 pg (27.0-33.0); Mean Corpuscular Volume 99.6 fL (80.0-98.0); Mean Platelet Volume 11.9 fL (9.4-12.4); Monocytes Absolute Auto 0.4 X10*3/uL (0.1-1.2); Monocytes Percent Auto 3.3 % (2-11); NRBC Pct Auto 0.2 /100WBC (0.0-0.2); Neutrophils Absolute Auto 9.9 x10*3/uL (2.0-8.3); Neutrophils Percent Auto 85.4 % (45-73); Red Blood Count 2.85 X10*6/uL (4.60-5.80); Red Cell Distribution Width 16.1 % (11.0-16.0)
[2022-06-15 05:07] LABS: VBG Base Excess -10.1 mmol/L; VBG HCO3 15 mmol/L (22-26); VBG pCO2 35 mmHg; VBG pH 7.25 (7.32-7.43); VBG pO2 36 mmHg
[2022-06-15] MEDS: Magnesium Sulfate/H2O 2 GM/50 ML PIGGYBACK IV (05:07)
[2022-06-15 05:08] LABS: Platelet Count 66 X10*3/uL (160-400); White Blood Count 11.6 X10*3/uL (4.8-10.8)
[2022-06-15 05:09] LABS: MANUAL DIFF FLAG NO
--- NOTE | 2022-06-15 05:18 | PC.NURSE ---
0440 alerted from co worker and nurse ob that patients rhythm declining to vtach, pt semi unresponsive, not answering verbal cues, eyes half open and looking straight ahead only. RR called, team responded, hospitalist, and stationary engineer supervisor to room. pt arousable to shakes and verbal stimuli after approx., 30 seconds. back to afib, 113/59-84-22-91% o2 at 3l/m n/c and able to answer some simple yes or no questions. POC check =128, hospitalist ordered labwork, and iv magnesium 2gm. o2 sats increased to 96-97%, hob elevated, repositioned, sitter at bedside, heparin drip as per protocol. [place] catheter emptied for 250ml rachelle urine. napping with no s/sx resp distress at 0530, will cont to monitor closely.
[2022-06-15 05:28] LABS: Alanine Aminotransferase 808 U/L (0-40); Albumin Level 3.5 g/dL (3.5-5.0); Alkaline Phosphatase 88 U/L (39-117); Anion Gap 20 (12-20); Aspartate Amino Transferase 1223 U/L (5-37); Bilirubin Total 1.6 mg/dL (0.0-1.0); Blood Urea Nitrogen 64 mg/dL (9-16); Calcium 8.2 mg/dL (8.4-10.2); Carbon Dioxide 16 mmol/L (22-29); Chloride 113 mmol/L (96-108); Creatinine Clr Calc Pharmacy 18.7; Estimated Glomerular Filt Rate 17; Glucose Random 151 mg/dL (60-115); Magnesium 2.4 mg/dL (1.6-2.6); Phosphorus 4.4 mg/dL (2.7-4.5); Potassium 4.1 mmol/L (3.3-5.1); Sodium 145 mmol/L (135-145); Total Protein 6.6 g/dL (6.5-8.0)
[2022-06-15] MEDS: Sodium Bicarbonate 650 MG TABLET PO ×4 (08:24→20:01)
[2022-06-15 09:39] LABS: HBS Num1 3.52 mIU/mL (0-7.99); HBc Num1 0.16 S/CO (0.00-0.79); HBsAGNum1 1.15 S/CO (0.00-0.99); Hepatitis A Antibody IgM 0.12 Index (0-0.79); Hepatitis B Core Antibody Nonreactive (Nonreactive); ~HepC Num1 0.17 S/CO (0.00-0.79); ~Hepatitis A Antibody IgM Nonreactive (Nonreactive); ~Hepatitis B Surface Antibody NONREACTIVE (Nonreactive); ~Hepatitis C Antibody Nonreactive (Nonreactive)
[2022-06-15 10:00] LABS: PTT Heparin Drip 69.9 SEC (53-77.9)
[2022-06-15 10:36] LABS: HBsAGNum2 0.28; HBsAGNum3 0.29
[2022-06-15 10:38] LABS: Hepatitis B Surface Antigen Nonreactive (Negative)
--- NOTE | 2022-06-15 11:01 | MHC.SL.SWA ---
Speech Pathologist Impression: Oropharyngeal dysphagia, risk of aspiration Risk of Aspiration Due to: Medically Fragile Reduced Cognition Dysphasia Diet Status: No changes at this time Liquid Consistency and Strategies for Safe Swallow: Liquid Intake Recommendation: [employer] Thick Liquid Intake Strategies: Small Sips No Straws Solid Food Consistency: Dietary Recommendations: Grnd/Mech Altered (NDD2) Additional Modifications to Solid Foods: Patient will need full supervision/assistance during meals due to aspiration risk, confusion. Oral Medication Intake: Crushed with Puree Please contact the pharmacy regarding appropriate crushable or liquid drug formulations that are available whenever modified delivery is recommended. Compensatory Strategies and Precautions to be Taken for Safe Swallow: Sitting Upright (90 deg) No Straw Small Bites and Sips Rate of Ingestion Change Avoid Specific Foods Supervision While Eating and Drinking for Safe Swallow: Total Supervision (1:1) Foods to Avoid: Mixed consistencies, difficult to chew solids Swallowing Recommended Treatments: Compens. Strategy Educat. Recommendation for Speech: Inpatient Speech Therapy Comment: Patient presents with a mild to moderate oralpharyngeal dysphagia, with reduced laryngeal elevation noted consistently on swallow, evidence of aspiration on thin liquids, and difficulty managing more advanced solid consistencies. Recommend START diet of Ground Mechanical (NDD2) with NECTAR THICK liquids, pills crushed in puree. Due to level of confusion and aspiration risk, patient would benefit from direct supervision and assistance during meals. , RD notified of recommendation by secure text, discussed with RN in person. PICTURE HANGER will continue to follow, assess toleration of diet, re-assess swallow for possible upgrade. [place] Studies Professor Clinican/Clinical Fellow: No Supervisory Statement: I have reviewed and agree with the student/clinical fellow's documentation: N/A Speech Language Pathologist: Brenda De Leon M.A., [facility]-PICTURE HANGER
--- NOTE | 2022-06-15 11:56 | MHC.CLN ---
F/U PT WITH INCREASED NUTRITION RISK R/T PRESSURE INJURY DIET ADVANCED TO 2GM NA FRD M/S WITH NT LIQ-APPROPRIATE RECOMMEND ADDING ENSURE TID TO IMPROVE WOUND HEALING SUPP TO PROVIDE 1050KCALS, 60G PROTEIN MONITOR PO INTAKE AND SUPP ACCEPTANCE
--- NOTE | 2022-06-15 11:56 | PM.PNNEP ---
Subjective Subjective Date of Service: 06/15/22 Interval history: seen and examined no complaints Physical Exam Vital Signs: Vital Signs: Last Vital Signs Temp 98.7 F 06/15/22 08:00 Pulse 90 06/15/22 08:00 Resp 18 06/15/22 08:00 BP 100/67 06/15/22 08:00 Pulse Ox 98 06/15/22 08:00 O2 Del Method Nasal Cannula 06/15/22 08:00 O2 Flow Rate 3 06/15/22 08:00 Oxygen Flow Rate 4 06/13/22 08:47 BMI result Body Mass Index 32.4 Const: General: no acute distress HEENT: Head: Yes normocephalic and Yes atraumatic Neck: Neck: Yes supple Resp: Auscultation: diminished lung sounds Cardio: Heart sounds: S1 normal heart sound present and S2 normal heart sound present GI: Palpation (GI): Soft to palpation and nontender Extrem: General: No edema Objective Data Labs 06/15/22 04:57 06/15/22 04:57 Labs: Laboratory Results - last 24 hr 06/14/22 06/14/22 06/14/22 11:52 15:07 19:28 WBC RBC Hgb Hct MCV MCH MCHC RDW Plt Count MPV Immature Gran % (Auto) Neut % (Auto) Lymph % (Auto) [place] % (Auto) Eos % (Auto) Baso % (Auto) Lymph # (Auto) [place] # (Auto) Eos # (Auto) Baso # (Auto) Abs Immat Gran (auto) Absolute Neuts (auto) Absolute Nucleated RBC Nucleated RBC % (auto) aPTT Heparin Protocol 85.8 H 64.6 D VBG pH VBG pCO2 VBG pO2 VBG HCO3 VBG O2 Saturation VBG Base Excess Sodium Potassium Chloride Carbon Dioxide Anion Gap BUN Creatinine Estim Creat Clear Calc Estimated GFR POC Glucose Random Glucose Calcium Phosphorus Magnesium Total Bilirubin AST ALT Alkaline Phosphatase Total Protein Albumin Random Vancomycin 11.8 L Hepatitis A IgM Ab Hep Bs Antigen Hep Bs Antibody Hep B Core Total Ab Hepatitis C Ab (EIA) 06/14/22 06/15/22 06/15/22 19:28 01:41 04:48 WBC 12.7 H RBC 2.89 L Hgb 9.2 L Hct 28.4 L MCV 98.3 H MCH 31.8 MCHC 32.4 RDW 15.9 Plt Count 80 L D MPV 12.1 Immature Gran % (Auto) Neut % (Auto) Lymph % (Auto) [place] % (Auto) Eos % (Auto) Baso % (Auto) Lymph # (Auto) [place] # (Auto) Eos # (Auto) Baso # (Auto) Abs Immat Gran (auto) Absolute Neuts (auto) Absolute Nucleated RBC 0.000 Nucleated RBC % (auto) 0.0 aPTT Heparin Protocol 52.0 L VBG pH VBG pCO2 VBG pO2 VBG HCO3 VBG O2 Saturation VBG Base Excess Sodium Potassium Chloride Carbon Dioxide Anion Gap BUN Creatinine Estim Creat Clear Calc Estimated GFR POC Glucose 128 H Random Glucose Calcium Phosphorus Magnesium Total Bilirubin AST ALT Alkaline Phosphatase Total Protein Albumin Random Vancomycin Hepatitis A IgM Ab Hep Bs Antigen Hep Bs Antibody Hep B Core Total Ab Hepatitis C Ab (EIA) 06/15/22 06/15/22 06/15/22 04:57 04:57 04:57 WBC 11.6 H RBC 2.85 L Hgb 9.1 L Hct 28.4 L MCV 99.6 H MCH 31.9 MCHC 32.0 RDW 16.1 H Plt Count 66 L MPV 11.9 Immature Gran % (Auto) 0.4 Neut % (Auto) 85.4 H Lymph % (Auto) 10.8 L [place] % (Auto) 3.3 Eos % (Auto) 0.0 Baso % (Auto) 0.1 Lymph # (Auto) 1.3 [place] # (Auto) 0.4 Eos # (Auto) 0.0 Baso # (Auto) 0.0 Abs Immat Gran (auto) 0.05 H Absolute Neuts (auto) 9.9 H Absolute Nucleated RBC 0.020 H Nucleated RBC % (auto) 0.2 aPTT Heparin Protocol VBG pH VBG pCO2 VBG pO2 VBG HCO3 VBG O2 Saturation VBG Base Excess Sodium 145 Potassium 4.1 Chloride 113 H Carbon Dioxide 16 L Anion Gap 20 BUN 64 H Creatinine 3.50 H Estim Creat Clear Calc 18.7 Estimated GFR 17 POC Glucose Random Glucose 151 H Calcium 8.2 L Phosphorus 4.4 Magnesium 2.4 Total Bilirubin 1.6 H AST 1223 H ALT 808 H Alkaline Phosphatase 88 Total Protein 6.6 Albumin 3.5 Random Vancomycin Hepatitis A IgM Ab Nonreactive Hep Bs Antigen Not Reportable Hep Bs Antibody NONREACTIVE Hep B Core Total Ab Nonreactive Hepatitis C Ab (EIA) Nonreactive 06/15/22 06/15/22 05:00 09:44 WBC RBC Hgb Hct MCV MCH MCHC RDW Plt Count MPV Immature Gran % (Auto) Neut % (Auto) Lymph % (Auto) [place] % (Auto) Eos % (Auto) Baso % (Auto) Lymph # (Auto) [place] # (Auto) Eos # (Auto) Baso # (Auto) Abs Immat Gran (auto) Absolute Neuts (auto) Absolute Nucleated RBC Nucleated RBC % (auto) aPTT Heparin Protocol 69.9 D VBG pH 7.25 L VBG pCO2 35 VBG pO2 36 VBG HCO3 15 L VBG O2 Saturation 47.0 VBG Base Excess -10.1 Sodium Potassium Chloride Carbon Dioxide Anion Gap BUN Creatinine Estim Creat Clear Calc Estimated GFR POC Glucose Random Glucose Calcium Phosphorus Magnesium Total Bilirubin AST ALT Alkaline Phosphatase Total Protein Albumin Random Vancomycin Hepatitis A IgM Ab Hep Bs Antigen Hep Bs Antibody Hep B Core Total Ab Hepatitis C Ab (EIA) Microbiology Microbiology Results: Microbiology 06/13/22 09:29 Blood - Venous Blood Culture - Preliminary Streptococcus pyogenes (Grp A) 06/13/22 09:05 Blood - Venous Blood Culture - Preliminary Streptococcus pyogenes (Grp A) Procedures Date of Service Date of Service: 06/15/22 Assessment & Plan Assessment and plan (1) Acute kidney injury: Status: Inactive (2) Metabolic acidosis: Status: Acute (3) CKD (chronic kidney disease) stage 3, GFR 30-59 ml/min: Status: Acute Plan kidney function worse ELYSSA due to ischemic tubular injury CT scan negative for obstruction benign urine sediment known CKD baseline Scr ~ 1.3 mg/dl h/o HFpEF REC c/w sodium bicarbonate follow kidney function and electrolytes Time Spent With Patient Time: Total time managing care of this patient today ____ minutes. Progress Note: Quality Stroke Does the patient have a stroke diagnosis?: No
--- NOTE | 2022-06-15 15:31 | W.PM.IDCN ---
History of Present Illness Data of Consult Service Date: 06/15/22 Requesting physician: Luis Enrique Cole Primary Care Provider: ROLF HARRIS Reason for consult: bacteremia He presents from Rehab with altered mental status and confusion,worse last three days. He has fever reported initially. He has hepatitis and renal failure. He has Group A strep bacteremia. He has left leg redness,improving. Review of Systems Review of Systems: Yes all other systems are reviewed and are negative PMFSH Past Medical History Medical History (Updated 06/15/22 @ 15:34 by Sanam Wilson MD) Afib Atrial flutter Cardiomyopathy Chronic anticoagulation Diarrhea Group A streptococcal infection HFrEF (heart failure with reduced ejection fraction) ICD (implantable cardioverter-defibrillator) in place NSVT (nonsustained ventricular tachycardia) Pneumatosis coli Family History Family History Father No problems noted. Mother No problems noted. Family history: reviewed and not pertinent Surgical History Surgical History H/O prostatectomy Social History Social History Household Members: Unknown / Unable to assess Housing: Assisted Living Facility Do you presently have visiting nurse or other home services: No Unable to assess alcohol history related to: Unable to respond Alcohol intake: never Patient Tobacco Use Status: Never used Tobacco Smoked in Last 30 Days: No Use of substances other than those prescribed or required for medical reasons: Unknown Currently Displaying Signs/Symptoms of Drug Intoxication Withdrawal: No Advance Directives: Yes Advance Directives on File: Yes Advance Directives Date on File: 02/10/22 Do you have thoughts of harming others: None Do you have a plan to hurt others: No Plan Nutrition Risks: Difficulty chewing, Difficulty swallowing and On aspiration precautions service: Yes Current occupational status: retired Meds Allergies Allergy/AdvReac Type Severity Reaction Status Date / Time No Known Allergies Allergy Verified 06/08/22 10:37 [No Known Allergies*] Active Medications: Current Medications Heparin Sodium (Porcine) (Heparin Sodium,Porcine 5,000 Unit/Ml Vial) 4,200 unit 40 unit/kg (4200 unit) IVPUSH PROTOCOL BOLUS PRN; Protocol PRN Reason: 40 unit/kg - Heparin Protocol Last Admin: 06/15/22 03:07 Dose: 4,200 unit Heparin Sodium (Porcine) (Heparin Sodium,Porcine 5,000 Unit/Ml Vial) 8,500 unit 80 unit/kg (8500 unit) IVPUSH PROTOCOL BOLUS PRN; Protocol PRN Reason: 80 unit/kg - Heparin Protocol Heparin Sodium/Sodium Chloride (Heparin Sodium,Porcine/1/2ns) 25,000 unit in 250 mls @ 0 mls/hr IVCONT .Q0M [facility]; Protocol Last Titration: 06/15/22 10:29 Dose: 9.443 units/kg/hr, 10 mls/hr Ceftriaxone Sodium 1 gm/ (Sodium Chloride) 50 mls @ 100 mls/hr IV Q24H [facility] Last Infusion: 06/15/22 00:02 Dose: Infused Clindamycin Phosphate (Cleocin) 600 mg in 50 mls @ 100 mls/hr IV Q8H [facility] Last Infusion: 06/15/22 15:20 Dose: Infused Omeprazole (Omeprazole 20 Mg Capsule.) 20 mg PO BID@0630,1630 [facility] Last Admin: 06/15/22 06:04 Dose: Not Given Pharmacy Consult (Consult Rx Perform Med Rec) 1 each MISCELLANE ONCE PRN PRN Reason: Consult order Sodium Bicarbonate (Sodium Bicarbonate 650 Mg Tablet) 650 mg PO QID [facility] Last Admin: 06/15/22 13:48 Dose: 650 mg Home Medications Medication Instructions Recorded Confirmed Last Taken Type lisinopril 2.5 mg tablet 2.5 mg PO DAILY@0800 01/18/20 06/13/22 2 Days Ago History ~05/17/22 acetaminophen 500 mg tablet 500 mg PO BID PRN Pain 04/10/21 06/13/22 2 Days Ago History ~05/17/22 cilostazol 50 mg tablet 50 mg PO BID 04/10/21 06/13/22 2 Days Ago History ~05/17/22 levothyroxine 25 mcg tablet 1 tab PO DAILY@0600 04/10/21 06/13/22 2 Days Ago History ~05/17/22 bisacodyl 10 mg rectal suppository 10 mg MN DAILY PRN Constipation 05/19/22 06/13/22 2 Days Ago History ~05/17/22 magnesium hydroxide 400 mg/5 mL 30 ml PO DAILY PRN Constipation 05/19/22 06/13/22 2 Days Ago History oral suspension (Milk of Magnesia) ~05/17/22 oxycodone 5 mg tablet 5 mg PO Q8H PRN Mod/Severe Pain 05/19/22 06/13/22 2 Days Ago History (Scale Score 4-10) ~05/17/22 sodium phosphates 19 gram-7 118 ml MN DAILY PRN Constipation 05/19/22 06/13/22 2 Days Ago History gram/118 mL enema (Fleet Enema) ~05/17/22 zinc oxide 1 appl topical BID 05/19/22 06/13/22 2 Days Ago History ~05/17/22 amiodarone 200 mg tablet 200 mg PO DAILY@0800 06/13/22 06/13/22 Unknown History cholecalciferol (vitamin D3) 50 50 mcg PO DAILY 06/13/22 06/13/22 Unknown History mcg (2,000 unit) capsule metoprolol tartrate 25 mg tablet 12.5 mg PO TID 06/13/22 06/13/22 Unknown History Physical Exam Vital Signs: Vital Signs: Last Vital Signs Temp 98.1 F 06/15/22 15:20 Pulse 95 06/15/22 15:20 Resp 18 06/15/22 15:20 BP 130/72 06/15/22 15:20 Pulse Ox 94 06/15/22 15:20 O2 Del Method Nasal Cannula 06/15/22 08:00 O2 Flow Rate 3 06/15/22 08:00 Oxygen Flow Rate 4 06/13/22 08:47 BMI result Body Mass Index 32.4 Extrem: Other: improving lateral left leg cellulitis Results Labs 06/15/22 04:57 06/15/22 04:57 Labs: Short CBC 06/14/22 06/15/22 Range/Units 19:28 04:57 WBC 12.7 H 11.6 H (4.8-10.8) X10*3/uL Hgb 9.2 L 9.1 L (14.0-18.0) g/dl Hct 28.4 L 28.4 L (42.0-52.0) % Plt Count 80 L D 66 L (160-400) X10*3/uL BMP 06/15/22 04:57 Sodium 145 Potassium 4.1 Chloride 113 H Carbon Dioxide 16 L BUN 64 H Creatinine 3.50 H Calcium 8.2 L Liver Function 06/15/22 Range/Units 04:57 Total Bilirubin 1.6 H (0.0-1.0) mg/dL AST 1223 H (5-37) U/L ALT 808 H (0-40) U/L Alkaline Phosphatase 88 (39-117) U/L Albumin 3.5 (3.5-5.0) g/dL Microbiology Microbiology Results: Microbiology 06/13/22 09:29 Blood - Venous Blood Culture - Preliminary Streptococcus pyogenes (Grp A) 06/13/22 09:05 Blood - Venous Blood Culture - Preliminary Streptococcus pyogenes (Grp A) Assessment and Plan (1) Group A streptococcal infection: Status: Acute concern over early streptococcal toxic shock with no profound hypotension but multisystem disease likely related with hepatitis and renal insufficiency Also need to rule out endocarditis Plan Clindamycin and Ceftriaxone cover above and Clindamycin can reduce toxin and bacterial burden Clindamycin through weekend and then stop Check echo for endocarditis. There is concern whether weakness strokelike syndrome related When better he will likely be able to transition to po Ceftin total 14 d antibiotics if no endocarditis/ Time Spent With Patient Time: Total time managing care of this patient today ____ minutes.
--- NOTE | 2022-06-15 16:27 | MHC.CM.PN ---
EMR REVIEWED AND PER MD ROUNDS, NOT MEDICALLY CLEARED FOR DC BACK TO [facility] (W/U FOR ENDOCARDITIS, ECHO) CM WILL CONTINUE TO FOLLOW
[2022-06-15] MEDS: Omeprazole 20 MG CAPSULE.DR PO (16:37)
[2022-06-15 17:37] LABS: PTT Heparin Drip 59.7 SEC (53-77.9)
--- NOTE | 2022-06-15 17:43 | P.PNIM_ITS ---
Subjective Subjective Date of Service: 06/16/22 Interval History: sepsis ,bacteremia, nstemi Review of Systems Mental status seems to be near baseline as per the sister bedside. Denies any new symptoms but looks tired Physical Exam Vital Signs: Vital Signs: Last Vital Signs Temp 98.1 F 06/15/22 15:20 Pulse 95 06/15/22 15:20 Resp 18 06/15/22 15:20 BP 130/72 06/15/22 15:20 Pulse Ox 94 06/15/22 15:20 O2 Del Method Nasal Cannula 06/15/22 15:20 O2 Flow Rate 3 06/15/22 15:20 Oxygen Flow Rate 4 06/13/22 08:47 BMI result Body Mass Index 32.4 Appearance: Alert.? Oriented X2(says his name and his sister name ,he in [place].? not in distress.?moves all ext,follow simplecommands cvs: [id number], [id number] . res: air entry diminshed , no rales or wheezin abd: no rebound or guarding ,nt, bs present. ext pulses present , no cyanosis . neuro: moves allext. Objective Data Active Medications Heparin Sodium (Porcine) (Heparin Sodium,Porcine 5,000 Unit/Ml Vial) 4,200 unit 40 unit/kg (4200 unit) IVPUSH PROTOCOL BOLUS PRN; Protocol PRN Reason: 40 unit/kg - Heparin Protocol Last Admin: 06/15/22 03:07 Dose: 4,200 unit Documented By: ZAIN Heparin Sodium (Porcine) (Heparin Sodium,Porcine 5,000 Unit/Ml Vial) 8,500 unit 80 unit/kg (8500 unit) IVPUSH PROTOCOL BOLUS PRN; Protocol PRN Reason: 80 unit/kg - Heparin Protocol Heparin Sodium/Sodium Chloride (Heparin Sodium,Porcine/1/2ns) 25,000 unit in 250 mls @ 0 mls/hr IVCONT .Q0M [facility]; Protocol Last Titration: 06/15/22 10:29 Dose: 9.443 units/kg/hr, 10 mls/hr Documented By: JAZLYN Co-signed By: NERIS Ceftriaxone Sodium 1 gm/ (Sodium Chloride) 50 mls @ 100 mls/hr IV Q24H [facility] Last Infusion: 06/15/22 00:02 Dose: 0 mls/hr Documented By: HEATHER Clindamycin Phosphate (Cleocin) 600 mg in 50 mls @ 100 mls/hr IV Q8H [facility] Last Infusion: 06/15/22 15:20 Dose: 0 mls/hr Documented By: JAZLYN Omeprazole (Omeprazole 20 Mg Capsule.) 20 mg PO BID@0630,1630 [facility] Last Admin: 06/15/22 16:37 Dose: 20 mg Documented By: JAZLYN Pharmacy Consult (Consult Rx Perform Med Rec) 1 each MISCELLANE ONCE PRN PRN Reason: Consult order Sodium Bicarbonate (Sodium Bicarbonate 650 Mg Tablet) 650 mg PO QID [facility] Last Admin: 06/15/22 16:38 Dose: 650 mg Documented By: JAZLYN Labs 06/15/22 04:57 06/15/22 04:57 Labs: Laboratory Results - last 24 hr 06/14/22 06/14/22 06/15/22 19:28 19:28 01:41 MCV 98.3 H MCH 31.8 MCHC 32.4 RDW 15.9 Plt Count 80 L D MPV 12.1 Immature Gran % (Auto) Neut % (Auto) Lymph % (Auto) [place] % (Auto) Eos % (Auto) Baso % (Auto) Lymph # (Auto) [place] # (Auto) Eos # (Auto) Baso # (Auto) Abs Immat Gran (auto) Absolute Neuts (auto) Absolute Nucleated RBC 0.000 Nucleated RBC % (auto) 0.0 aPTT Heparin Protocol 64.6 D 52.0 L VBG pH VBG pCO2 VBG pO2 VBG HCO3 VBG O2 Saturation VBG Base Excess Anion Gap Estim Creat Clear Calc Estimated GFR POC Glucose Random Glucose Calcium Phosphorus Magnesium Total Bilirubin AST ALT Alkaline Phosphatase Total Protein Albumin Hepatitis A IgM Ab Hep Bs Antigen Hep Bs Antibody Hep B Core Total Ab Hepatitis C Ab (EIA) 06/15/22 06/15/22 06/15/22 04:48 04:57 04:57 MCV 99.6 H MCH 31.9 MCHC 32.0 RDW 16.1 H Plt Count 66 L MPV 11.9 Immature Gran % (Auto) 0.4 Neut % (Auto) 85.4 H Lymph % (Auto) 10.8 L [place] % (Auto) 3.3 Eos % (Auto) 0.0 Baso % (Auto) 0.1 Lymph # (Auto) 1.3 [place] # (Auto) 0.4 Eos # (Auto) 0.0 Baso # (Auto) 0.0 Abs Immat Gran (auto) 0.05 H Absolute Neuts (auto) 9.9 H Absolute Nucleated RBC 0.020 H Nucleated RBC % (auto) 0.2 aPTT Heparin Protocol VBG pH VBG pCO2 VBG pO2 VBG HCO3 VBG O2 Saturation VBG Base Excess Anion Gap 20 Estim Creat Clear Calc 18.7 Estimated GFR 17 POC Glucose 128 H Random Glucose 151 H Calcium 8.2 L Phosphorus 4.4 Magnesium 2.4 Total Bilirubin 1.6 H AST 1223 H ALT 808 H Alkaline Phosphatase 88 Total Protein 6.6 Albumin 3.5 Hepatitis A IgM Ab Hep Bs Antigen Hep Bs Antibody Hep B Core Total Ab Hepatitis C Ab (EIA) 06/15/22 06/15/22 06/15/22 04:57 05:00 09:44 MCV MCH MCHC RDW Plt Count MPV Immature Gran % (Auto) Neut % (Auto) Lymph % (Auto) [place] % (Auto) Eos % (Auto) Baso % (Auto) Lymph # (Auto) [place] # (Auto) Eos # (Auto) Baso # (Auto) Abs Immat Gran (auto) Absolute Neuts (auto) Absolute Nucleated RBC Nucleated RBC % (auto) aPTT Heparin Protocol 69.9 D VBG pH 7.25 L VBG pCO2 35 VBG pO2 36 VBG HCO3 15 L VBG O2 Saturation 47.0 VBG Base Excess -10.1 Anion Gap Estim Creat Clear Calc Estimated GFR POC Glucose Random Glucose Calcium Phosphorus Magnesium Total Bilirubin AST ALT Alkaline Phosphatase Total Protein Albumin Hepatitis A IgM Ab Nonreactive Hep Bs Antigen Not Reportable Hep Bs Antibody NONREACTIVE Hep B Core Total Ab Nonreactive Hepatitis C Ab (EIA) Nonreactive 06/15/22 16:16 MCV MCH MCHC RDW Plt Count MPV Immature Gran % (Auto) Neut % (Auto) Lymph % (Auto) [place] % (Auto) Eos % (Auto) Baso % (Auto) Lymph # (Auto) [place] # (Auto) Eos # (Auto) Baso # (Auto) Abs Immat Gran (auto) Absolute Neuts (auto) Absolute Nucleated RBC Nucleated RBC % (auto) aPTT Heparin Protocol 59.7 VBG pH VBG pCO2 VBG pO2 VBG HCO3 VBG O2 Saturation VBG Base Excess Anion Gap Estim Creat Clear Calc Estimated GFR POC Glucose Random Glucose Calcium Phosphorus Magnesium Total Bilirubin AST ALT Alkaline Phosphatase Total Protein Albumin Hepatitis A IgM Ab Hep Bs Antigen Hep Bs Antibody Hep B Core Total Ab Hepatitis C Ab (EIA) Microbiology Microbiology Results: Microbiology 06/13/22 09:29 Blood Culture - Preliminary Blood - Venous Streptococcus pyogenes (Grp A) 06/13/22 09:05 Blood Culture - Preliminary Blood - Venous Streptococcus pyogenes (Grp A) Assessment and Plan (1) Group A streptococcal infection: Status: Acute (2) Ischemic hepatitis: Status: Acute (3) Gram-positive bacteremia: Status: Acute (4) NSTEMI (non-ST elevated myocardial infarction): Status: Acute (5) Sepsis: Status: Acute Plan 87 y/o M with hx of dementia , NH resident with multiple comorbiditites(AFib, cardiomyopathy, ICD) admitted to ICU with severe sepsis, NSTEMI, hypotension, ELYSSA: Patient was given IV antibiotics, pressors, IV anticoagulation-patient does not seem to be improving, still has ELYSSA and also LFTs are trending up, sent to the floor for further management . NSTEMI (non-ST elevated myocardial infarction): ?seen by cardio: thought secondary to his underlying medical issue echocardiogram to be probably suggestive stress-induced cardiomyopathy vs underlying significant coronary artery disease cannot be entirely ruled out. ? Can manage with IV heparin although should be careful that he is on oral anticoagulation therapy is anemic.? Continue to moniter cbc and management of blood pressure, see below.? He is not a candidate for invasive management given his marked cognitive dysfunc tion deleted a.m., sepsis as well as acute kidney injury.? Cardiomyopathy: ? nsvt episode overnight -d/w cardio -looked at strips -nsvt unlikely Patient has prior history of heart failure reduced ejection fraction cardiomyopathy suspected to be nonischemic.? last echocardiogram in 2020 at show near normal LVEF on neurohormonal modulation.? sudden reduction LV ejection fraction with possible cardiogenic component to his low blood pressure and acute kidney injury.? avoid all neurohormonal modulation given his low blood pressure .? It is possible that he has underlying significant coronary artery disease given his advanced age although management would be conservative given his multiple comorbidities as listed above. initail hypotension intial thought to be ?multifactorial related to sepsis/bacteremia as well as cardiogenic given his sudden reduction LV systolic function which appears to be stress-induced cardiomyopathy- was on pressores - off pressors , blood pressure softer, will avoid bp meds and continue antibiotics elyssa: cr 2.9 range moniter i/o thought to be related to hypotension. added nephrology eval ishchemic haptitis: lfts trending up continue to trend added Gi eval. Afib:He has had prior history of atrial fibrillation which has been paroxysmal in nature.? Currently rate is borderline elevated probably related to his underlying medical condition.? Continue supportive care.? Can hold his oral anticoagulation therapy given acute renal failure.? Continue IV heparin.? Continue trend hemoglobin cbc.? sepsis /bacteremia: strep pyogenous(group a) bacteremia left lower leg erythema-? cellulitis throat cultures ua neg,cxr-?grossly clear ,ct abd-seems unchnaged repeat blood culturs continue zosyn for now ,melo marques added Id eval-chnaged to ceftriaxone/clinda Speech and Swallow saw the patient-diet adjusted as per speech and Swallow recommendations. Above management discussed with the patient and his family in detail length(his sister chantelle ): Decided for DNR DNI, continue conservative management if patient condition worsen please call his sister back Time Spent With Patient Time: Total time managing care of this patient today ____ minutes. Quality Stroke Does the patient have a stroke diagnosis?: No VTE Prior VTE?: No VTE Risk Level:: Medical - moderate - high VTE Device Contraindication: N/A - Device Ordered VTE Drug Contraindication: Treatment Not Indicated
[2022-06-15] MEDS: cefTRIAXone sodium 1 GM in 0.9 % Sodium Chloride 50 ML IV (19:53)
[2022-06-15] MEDS: Heparin Sodium,Porcine/1/2NS 25,000 UNIT/250 ML IV.SOLN 10 UNIT IVCONT (23:44)
--- NOTE | 2022-06-16 00:26 | PM.EVENT ---
Event Note Date of Service: 06/16/22 Event Note: Patient hypotensive with blood pressure 70 the 40s. He is A&O x1, not oriented to place or time. Patient was given 1 dose of midodrine given his heart failure, with slight improvement is blood pressure but not significantly. Tried calling his son Royal, left a voice message. Spoke to Jigar or his sister, who states that she is in agreement with the patient's son Royal the patient she would be made comfortable at this time. She states that she is also healthcare proxy along with Royal and therefore they discuss today to make patient comfortable if he deteriorates. He has deteriorated with significantly low blood pressures and shortness of breath. They want patient to be comfortable at this time. Comfort measure has been initiated Time Spent With Patient Time: Total time managing care of this patient today ____ minutes.
[2022-06-16 00:30] VITALS: BP 78/48
[2022-06-16] MEDS: Midodrine HCl 5 MG TABLET PO ×2 (00:36→01:41)
[2022-06-16 00:44] VITALS: BP 87/50
[2022-06-16 01:22] LABS: Lactic Acid 2.1 mmol/L (0.5-2.0)
[2022-06-16] MEDS: Lactated Ringers 500 ML IV (01:36)
[2022-06-16 01:46] VITALS: BP 82/58
[2022-06-16 02:41] LABS: Reflex Lactate? Lactic Acid Added
[2022-06-16 03:20] LABS: Hematocrit 28.4 % (42.0-52.0); Hemoglobin 9.2 g/dl (14.0-18.0); Mean Corpuscular HGB Conc 32.4 g/dl (31.0-36.0); Mean Corpuscular Hemoglobin 32.2 pg (27.0-33.0); Mean Corpuscular Volume 99.3 fL (80.0-98.0); Mean Platelet Volume 12.6 fL (9.4-12.4); NRBC Pct Auto 0.7 /100WBC (0.0-0.2); Red Blood Count 2.86 X10*6/uL (4.60-5.80); Red Cell Distribution Width 16.1 % (11.0-16.0); White Blood Count 8.6 X10*3/uL (4.8-10.8)
[2022-06-16 03:22] LABS: Platelet Count 58 X10*3/uL (160-400)
[2022-06-16 03:29] VITALS: BP 70/43; PULSE 71; RESP 18; TEMP 36.4; O2SAT 96
[2022-06-16 03:40] LABS: ~Lactic Acid-LAB USE ONLY 2.1 mmol/L (0.5-2.0)
[2022-06-16 03:41] LABS: Alanine Aminotransferase 609 U/L (0-40); Albumin Level 3.3 g/dL (3.5-5.0); Alkaline Phosphatase 92 U/L (39-117); Anion Gap 18 (12-20); Aspartate Amino Transferase 591 U/L (5-37); Blood Urea Nitrogen 73 mg/dL (9-16); Calcium 7.7 mg/dL (8.4-10.2); Carbon Dioxide 17 mmol/L (22-29); Chloride 113 mmol/L (96-108); Creatinine Clr Calc Pharmacy 16.2; Estimated Glomerular Filt Rate 14; Glucose Random 124 mg/dL (60-115); Sodium 144 mmol/L (135-145); Total Protein 5.9 g/dL (6.5-8.0)
[2022-06-16] MEDS: Scopolamine 1.5 MG PATCH.TD.3 TRANSDERMA (04:12)
[2022-06-16] MEDS: Morphine Sulfate 4 MG/ML CARTRIDGE IM (04:12)
--- NOTE | 2022-06-16 04:45 | PC.NURSE ---
Patient noted to be hypotensive, BP 78/50 . Hospitalist notified. Midodrine and the LR bolus ordered. No improvement in blood pressure , patient alert to person although confused otherwise. Hospitalist spoke with patient's family , decision was made for [employer] status. Patient does not appear to be in any distress. Scopolamine patch and Morphine 4 mg ordered/administered for comfort. Will continue to monitor. 1:1 sitter at bedside.
[2022-06-16 05:09] LABS: Reflex Lactate? 2 Y
[2022-06-16 07:46] VITALS: BP 104/58
--- NOTE | 2022-06-16 07:59 | HO.PM.IMPN ---
Subjective Subjective Date of Service: 06/17/22 Interval History: overnight events noted Review of Systems seems awake ,eating Physical Exam Vital Signs: Vital Signs: Last Vital Signs Temp 97.6 F 06/16/22 03:29 Pulse 71 06/16/22 03:29 Resp 18 06/16/22 03:29 BP 104/58 L 06/16/22 07:46 Pulse Ox 96 06/16/22 03:29 O2 Del Method Nasal Cannula 06/16/22 03:29 O2 Flow Rate 3 06/16/22 03:29 Oxygen Flow Rate 4 06/13/22 08:47 BMI result Body Mass Index 32.4 Appearance: awake,?follow simple commands ,family at bedside cvs: [id number], [id number] . res: air entry diminshed , no rales or wheezin abd: no rebound or guarding ,nt, bs present. ext pulses present , no cyanosis . neuro: moves allext. Objective Data Active Medications Lorazepam (Lorazepam 1 Mg Tablet) 1 mg SUBLINGUAL Q4H PRN PRN Reason: anxiety/restlessness Morphine Sulfate (Morphine Sulfate 4 Mg/Ml Cartridge) 4 mg IVPUSH Q4H PRN PRN Reason: Discomfort/Shortness of breath Omeprazole (Omeprazole 20 Mg Capsule.Dr) 20 mg PO BID@0630,1630 [facility] Last Admin: 06/16/22 06:04 Dose: Not Given Documented By: ILDA Non-Admin Reason: NPO Ondansetron HCl (Ondansetron Hcl 4 Mg/2 Ml Vial) 4 mg IVPUSH Q8H PRN PRN Reason: Nausea and Vomiting Pharmacy Consult (Consult Rx Perform Med Rec) 1 each MISCELLANE ONCE PRN PRN Reason: Consult order Scopolamine (Scopolamine 1.5 Mg Patch.Td.3) 1.5 mg TRANSDERMA Q72H [facility] Last Admin: 06/16/22 04:12 Dose: 1.5 mg Documented By: ILDA Sodium Bicarbonate (Sodium Bicarbonate 650 Mg Tablet) 650 mg PO QID [facility] Last Admin: 06/15/22 20:01 Dose: 650 mg Documented By: ILDA Labs 06/16/22 03:03 06/16/22 03:03 Labs: Laboratory Results - last 24 hr 06/15/22 06/15/22 06/15/22 04:57 09:44 16:16 MCV MCH MCHC RDW Plt Count MPV Absolute Nucleated RBC Nucleated RBC % (auto) aPTT Heparin Protocol 69.9 D 59.7 Anion Gap Estim Creat Clear Calc Estimated GFR Random Glucose Lactic Acid Lactic Acid F/U @ 2Hr Calcium Total Bilirubin AST ALT Alkaline Phosphatase Total Protein Albumin Hepatitis A IgM Ab Nonreactive Hep Bs Antigen Not Reportable Hep Bs Antibody NONREACTIVE Hep B Core Total Ab Nonreactive Hepatitis C Ab (EIA) Nonreactive 06/16/22 06/16/22 06/16/22 00:35 03:03 03:03 MCV 99.3 H MCH 32.2 MCHC 32.4 RDW 16.1 H Plt Count 58 L MPV 12.6 H Absolute Nucleated RBC 0.060 H Nucleated RBC % (auto) 0.7 H aPTT Heparin Protocol Anion Gap 18 Estim Creat Clear Calc 16.2 Estimated GFR 14 Random Glucose 124 H Lactic Acid 2.1 H* Lactic Acid F/U @ 2Hr Calcium 7.7 L D Total Bilirubin 1.0 AST 591 H ALT 609 H Alkaline Phosphatase 92 Total Protein 5.9 L Albumin 3.3 L Hepatitis A IgM Ab Hep Bs Antigen Hep Bs Antibody Hep B Core Total Ab Hepatitis C Ab (EIA) 06/16/22 03:03 MCV MCH MCHC RDW Plt Count MPV Absolute Nucleated RBC Nucleated RBC % (auto) aPTT Heparin Protocol Anion Gap Estim Creat Clear Calc Estimated GFR Random Glucose Lactic Acid Lactic Acid F/U @ 2Hr 2.1 H* Calcium Total Bilirubin AST ALT Alkaline Phosphatase Total Protein Albumin Hepatitis A IgM Ab Hep Bs Antigen Hep Bs Antibody Hep B Core Total Ab Hepatitis C Ab (EIA) Microbiology Microbiology Results: Microbiology 06/14/22 19:28 Blood Culture - Preliminary Blood - Venous No growth after 24 hours. 06/14/22 19:28 Blood Culture - Preliminary Blood - Venous No growth after 24 hours. 06/13/22 09:29 Blood Culture - Preliminary Blood - Venous Streptococcus pyogenes (Grp A) 06/13/22 09:05 Blood Culture - Preliminary Blood - Venous Streptococcus pyogenes (Grp A) Assessment and Plan (1) Ischemic hepatitis: Status: Acute (2) ATN (acute tubular necrosis): Status: Acute (3) NSTEMI (non-ST elevated myocardial infarction): Status: Acute Plan 87 y/o M with hx of dementia , NH resident? with multiple comorbiditites(AFib, cardiomyopathy, ICD) admitted to ICU with severe sepsis, NSTEMI, hypotension, ELYSSA,ischemic hepatitis :? Patient was given IV antibiotics, pressors, IV anticoagulation-patient does not seem to be improving, still has ELYSSA and also LFTs : With above management patient did not improve much, family decided for patient to comfort measures . Time Spent With Patient Time: Total time managing care of this patient today ____ minutes. Quality Stroke Does the patient have a stroke diagnosis?: No VTE Prior VTE?: No VTE Risk Level:: Medical - moderate - high VTE Device Contraindication: N/A - Device Ordered VTE Drug Contraindication: Treatment Not Indicated
[2022-06-16] MEDS: Sodium Bicarbonate 650 MG TABLET PO ×4 (09:25→20:05)
--- NOTE | 2022-06-16 13:35 | PM.PNNEP ---
Subjective Subjective Date of Service: 06/16/22 Interval history: seen and examined flat Physical Exam Vital Signs: Vital Signs: Last Vital Signs Temp 97.6 F 06/16/22 03:29 Pulse 71 06/16/22 03:29 Resp 18 06/16/22 03:29 BP 104/58 L 06/16/22 07:46 Pulse Ox 96 06/16/22 03:29 O2 Del Method Nasal Cannula 06/16/22 03:29 O2 Flow Rate 3 06/16/22 03:29 Oxygen Flow Rate 4 06/13/22 08:47 BMI result Body Mass Index 32.4 Const: General: no acute distress HEENT: Head: Yes normocephalic and Yes atraumatic Neck: Neck: Yes supple Resp: Auscultation: diminished lung sounds Cardio: Heart sounds: S1 normal heart sound present and S2 normal heart sound present GI: Palpation (GI): Soft to palpation and nontender Extrem: General: No edema Objective Data Labs 06/16/22 03:03 06/16/22 03:03 Labs: Laboratory Results - last 24 hr 06/15/22 06/16/22 06/16/22 16:16 00:35 03:03 WBC 8.6 RBC 2.86 L Hgb 9.2 L Hct 28.4 L MCV 99.3 H MCH 32.2 MCHC 32.4 RDW 16.1 H Plt Count 58 L MPV 12.6 H Absolute Nucleated RBC 0.060 H Nucleated RBC % (auto) 0.7 H aPTT Heparin Protocol 59.7 Sodium Potassium Chloride Carbon Dioxide Anion Gap BUN Creatinine Estim Creat Clear Calc Estimated GFR Random Glucose Lactic Acid 2.1 H* Lactic Acid F/U @ 2Hr Calcium Total Bilirubin AST ALT Alkaline Phosphatase Total Protein Albumin 06/16/22 06/16/22 03:03 03:03 WBC RBC Hgb Hct MCV MCH MCHC RDW Plt Count MPV Absolute Nucleated RBC Nucleated RBC % (auto) aPTT Heparin Protocol Sodium 144 Potassium 4.0 Chloride 113 H Carbon Dioxide 17 L Anion Gap 18 BUN 73 H Creatinine 4.04 H* Estim Creat Clear Calc 16.2 Estimated GFR 14 Random Glucose 124 H Lactic Acid Lactic Acid F/U @ 2Hr 2.1 H* Calcium 7.7 L D Total Bilirubin 1.0 AST 591 H ALT 609 H Alkaline Phosphatase 92 Total Protein 5.9 L Albumin 3.3 L Microbiology Microbiology Results: Microbiology 06/13/22 09:29 Blood - Venous Blood Culture - Final Streptococcus pyogenes (Grp A) 06/13/22 09:05 Blood - Venous Blood Culture - Final Streptococcus pyogenes (Grp A) 06/15/22 17:50 Throat Throat Culture - Preliminary No growth to date. 06/14/22 19:28 Blood - Venous Blood Culture - Preliminary No growth after 24 hours. 06/14/22 19:28 Blood - Venous Blood Culture - Preliminary No growth after 24 hours. Procedures Date of Service Date of Service: 06/16/22 Assessment & Plan Assessment and plan (1) Acute kidney injury: Status: Inactive (2) Metabolic acidosis: Status: Acute (3) CKD (chronic kidney disease) stage 3, GFR 30-59 ml/min: Status: Acute Plan kidney function continue to decline hypotensive ELYSSA due to ischemic tubular injury CT scan negative for obstruction benign urine sediment known CKD baseline Scr ~ 1.3 mg/dl h/o HFpEF REC IVF boluses for low BP keep MAP > 65 mmhg c/w midodrine c/w sodium bicarbonate follow kidney function and electrolytes Time Spent With Patient Time: Total time managing care of this patient today ____ minutes. Progress Note: Quality Stroke Does the patient have a stroke diagnosis?: No
[2022-06-16 15:17] VITALS: BP 137/78; PULSE 57; RESP 16; TEMP 37; O2SAT 98
[2022-06-16] MEDS: Omeprazole 20 MG CAPSULE.DR PO (16:51)
[2022-06-17] VITALS: BP 85/62; PULSE 60; RESP 12; TEMP 36.1; O2SAT 97
[2022-06-17] MEDS: Omeprazole 20 MG CAPSULE.DR PO ×2 (05:30→16:08)
--- NOTE | 2022-06-17 08:32 | PM.PNNEP ---
Subjective Subjective Date of Service: 06/17/22 Interval history: seen and examined Physical Exam Vital Signs: Vital Signs: Last Vital Signs Temp 97 F 06/17/22 00:00 Pulse 60 06/17/22 00:00 Resp 12 06/17/22 00:00 BP 85/62 L 06/17/22 00:00 Pulse Ox 97 06/17/22 00:00 O2 Del Method Nasal Cannula 06/17/22 00:00 O2 Flow Rate 3 06/17/22 00:00 Oxygen Flow Rate 4 06/13/22 08:47 BMI result Body Mass Index 32.4 Const: General: no acute distress HEENT: Head: Yes normocephalic and Yes atraumatic Neck: Neck: Yes supple Resp: Auscultation: diminished lung sounds Cardio: Heart sounds: S1 normal heart sound present and S2 normal heart sound present GI: Palpation (GI): Soft to palpation and nontender Extrem: General: No edema Objective Data Labs 06/16/22 03:03 06/16/22 03:03 Microbiology Microbiology Results: Microbiology 06/14/22 19:28 Blood - Venous Blood Culture - Preliminary No growth after 48 hours. 06/14/22 19:28 Blood - Venous Blood Culture - Preliminary No growth after 48 hours. 06/13/22 09:29 Blood - Venous Blood Culture - Final Streptococcus pyogenes (Grp A) 06/13/22 09:05 Blood - Venous Blood Culture - Final Streptococcus pyogenes (Grp A) 06/15/22 17:50 Throat Throat Culture - Preliminary No growth to date. Procedures Date of Service Date of Service: 06/17/22 Assessment & Plan Assessment and plan (1) Acute kidney injury: Status: Inactive (2) Metabolic acidosis: Status: Acute (3) CKD (chronic kidney disease) stage 3, GFR 30-59 ml/min: Status: Acute Plan ELYSSA due to ischemic tubular injury CT scan negative for obstruction benign urine sediment known CKD baseline Scr ~ 1.3 mg/dl h/o HFpEF transitioned to INFECTION CONTROL SPECIALIST Time Spent With Patient Time: Total time managing care of this patient today ____ minutes. Progress Note: Quality Stroke Does the patient have a stroke diagnosis?: No
[2022-06-17] MEDS: Sodium Bicarbonate 650 MG TABLET PO ×3 (08:36→20:10)
--- NOTE | 2022-06-17 09:41 | MHC.CM.PN ---
Per MD, Patient is now RESEARCH ASSOCIATE QUALITY CONTROL QC.
--- NOTE | 2022-06-17 13:40 | HO.PM.IMPN ---
Subjective Subjective Date of Service: 06/17/22 Interval History: seems awake Review of Systems awake ,staff trying tofeed Physical Exam Vital Signs: Vital Signs: Last Vital Signs Temp 97 F 06/17/22 00:00 Pulse 60 06/17/22 00:00 Resp 12 06/17/22 00:00 BP 85/62 L 06/17/22 00:00 Pulse Ox 97 06/17/22 00:00 O2 Del Method Nasal Cannula 06/17/22 00:00 O2 Flow Rate 3 06/17/22 00:00 Oxygen Flow Rate 4 06/13/22 08:47 BMI result Body Mass Index 32.4 Appearance: awake,?follow simple commands ,family at bedside cvs: rrr, [id number] . res: air entry diminshed , no rales or wheezin abd: no rebound or guarding ,nt, bs present. ext pulses present , no cyanosis . neuro: moves allext. Objective Data Active Medications Lorazepam (Lorazepam 1 Mg Tablet) 1 mg SUBLINGUAL Q4H PRN PRN Reason: anxiety/restlessness Morphine Sulfate (Morphine Sulfate 4 Mg/Ml Cartridge) 4 mg IVPUSH Q4H PRN PRN Reason: Discomfort/Shortness of breath Omeprazole (Omeprazole 20 Mg Capsule.) 20 mg PO BID@0630,1630 [facility] Last Admin: 06/17/22 05:30 Dose: 20 mg Documented By: WICHO Ondansetron HCl (Ondansetron Hcl 4 Mg/2 Ml Vial) 4 mg IVPUSH Q8H PRN PRN Reason: Nausea and Vomiting Pharmacy Consult (Consult Rx Perform Med Rec) 1 each MISCELLANE ONCE PRN PRN Reason: Consult order Scopolamine (Scopolamine 1.5 Mg Patch.Td.3) 1.5 mg TRANSDERMA Q72H [facility] Last Admin: 06/16/22 04:12 Dose: 1.5 mg Documented By: ILDA Sodium Bicarbonate (Sodium Bicarbonate 650 Mg Tablet) 650 mg PO QID [facility] Last Admin: 06/17/22 08:36 Dose: 650 mg Documented By: GUILMAT Labs 06/16/22 03:03 06/16/22 03:03 Microbiology Microbiology Results: Microbiology 06/15/22 17:50 Throat Culture - Final Throat No Group A Beta-hemolytic Streptococci isolated. 06/14/22 19:28 Blood Culture - Preliminary Blood - Venous No growth after 48 hours. 06/14/22 19:28 Blood Culture - Preliminary Blood - Venous No growth after 48 hours. 06/13/22 09:29 Blood Culture - Final Blood - Venous Streptococcus pyogenes (Grp A) 06/13/22 09:05 Blood Culture - Final Blood - Venous Streptococcus pyogenes (Grp A) Assessment and Plan (1) ATN (acute tubular necrosis): Status: Acute (2) Ischemic hepatitis: Status: Acute (3) NSTEMI (non-ST elevated myocardial infarction): Status: Acute Plan 87 y/o M with hx of dementia , NH resident? with multiple comorbiditites(AFib, cardiomyopathy, ICD) admitted to ICU with severe sepsis, NSTEMI, hypotension, ELYSSA,ischemic hepatitis :? Patient was given IV antibiotics, pressors, IV anticoagulation-patient does not seem to be improving, still has ELYSSA and also LFTs :? With above management patient did not improve much,overall prognosis poor, family decided for patient to comfort measures . Time Spent With Patient Time: Total time managing care of this patient today ____ minutes. Quality Stroke Does the patient have a stroke diagnosis?: No VTE Prior VTE?: No VTE Risk Level:: Medical - moderate - high VTE Device Contraindication: N/A - Device Ordered VTE Drug Contraindication: Treatment Not Indicated
[2022-06-17 15:31] VITALS: BP 98/63; PULSE 91; RESP 20; TEMP 37; O2SAT 97
[2022-06-18] MEDS: LORazepam 1 MG TABLET SUBLINGUAL ×2 (00:26→13:15)
[2022-06-18] MEDS: Morphine Sulfate 4 MG/ML CARTRIDGE IVPUSH ×2 (01:56→13:15)
--- NOTE | 2022-06-18 08:41 | HO.PM.IMPN ---
Subjective Subjective Date of Service: 06/18/22 Interval History: general agent Physical Exam Vital Signs: Vital Signs: Last Vital Signs Temp 98.6 F 06/17/22 15:31 Pulse 91 06/17/22 15:31 Resp 20 06/17/22 15:31 BP 98/63 06/17/22 15:31 Pulse Ox 97 06/17/22 15:31 O2 Del Method Nasal Cannula 06/17/22 15:31 O2 Flow Rate 3 06/17/22 15:31 Oxygen Flow Rate 4 06/13/22 08:47 BMI result Body Mass Index 32.4 Objective Data Active Medications Lorazepam (Lorazepam 1 Mg Tablet) 1 mg SUBLINGUAL Q4H PRN PRN Reason: anxiety/restlessness Last Admin: 06/18/22 00:26 Dose: 1 mg Documented By: SHAE Morphine Sulfate (Morphine Sulfate 4 Mg/Ml Cartridge) 4 mg IVPUSH Q4H PRN PRN Reason: Discomfort/Shortness of breath Last Admin: 06/18/22 01:56 Dose: 4 mg Documented By: SHAE Omeprazole (Omeprazole 20 Mg Capsule.Dr) 20 mg PO BID@0630,1630 [facility] Last Admin: 06/18/22 05:46 Dose: Not Given Documented By: SHAE Non-Admin Reason: Too lethargic to take med Ondansetron HCl (Ondansetron Hcl 4 Mg/2 Ml Vial) 4 mg IVPUSH Q8H PRN PRN Reason: Nausea and Vomiting Pharmacy Consult (Consult Rx Perform Med Rec) 1 each MISCELLANE ONCE PRN PRN Reason: Consult order Scopolamine (Scopolamine 1.5 Mg Patch.Td.3) 1.5 mg TRANSDERMA Q72H [facility] Last Admin: 06/16/22 04:12 Dose: 1.5 mg Documented By: ILDA Sodium Bicarbonate (Sodium Bicarbonate 650 Mg Tablet) 650 mg PO QID [facility] Last Admin: 06/17/22 20:10 Dose: 650 mg Documented By: SHAE Labs 06/16/22 03:03 06/16/22 03:03 Microbiology Microbiology Results: Microbiology 06/15/22 17:50 Throat Culture - Final Throat No Group A Beta-hemolytic Streptococci isolated. Assessment and Plan (1) ATN (acute tubular necrosis): Status: Acute (2) Ischemic hepatitis: Status: Acute (3) NSTEMI (non-ST elevated myocardial infarction): Status: Acute Plan 87 y/o M with hx of dementia , NH resident? with multiple comorbiditites(AFib, cardiomyopathy, ICD) admitted to ICU with severe sepsis, NSTEMI, hypotension, ELYSSA,ischemic hepatitis :? Patient was given IV antibiotics, pressors, IV anticoagulation-patient does not seem to be improving, still has ELYSSA and also LFTs :? With above management patient did not improve much,overall prognosis poor, family decided for patient to comfort measures . Time Spent With Patient Time: Total time managing care of this patient today ____ minutes. Quality Stroke Does the patient have a stroke diagnosis?: No VTE Prior VTE?: No VTE Risk Level:: Medical - moderate - high VTE Device Contraindication: N/A - Device Ordered VTE Drug Contraindication: Treatment Not Indicated
[2022-06-18 11:21] VITALS: BP 189/71; PULSE 107; RESP 16; TEMP 36.5; O2SAT 92
--- NOTE | 2022-06-18 11:24 | MHC.SL.SWA ---
Speech Pathologist Impression: Oropharyngeal dysphagia, risk of aspiration Risk of Aspiration Due to: Medically Fragile Reduced Cognition Dysphasia Diet Status: No change; Per chart review, pt now NURSE Liquid Consistency and Strategies for Safe Swallow: Liquid Intake Recommendation: [place] Thick Liquid Intake Strategies: Small Sips No Straws Solid Food Consistency: Dietary Recommendations: Grnd/Mech Altered (NDD2) Additional Modifications to Solid Foods: Patient will need full supervision/assistance during meals due to aspiration risk, confusion. Oral Medication Intake: Crushed with Puree Please contact the pharmacy regarding appropriate crushable or liquid drug formulations that are available whenever modified delivery is recommended. Compensatory Strategies and Precautions to be Taken for Safe Swallow: Sitting Upright (90 deg) No Straw Small Bites and Sips Rate of Ingestion Change Avoid Specific Foods Supervision While Eating and Drinking for Safe Swallow: Total Supervision (1:1) Foods to Avoid: Mixed consistencies, difficult to chew solids Swallowing Recommended Treatments: Compens. Strategy Educat. Recommendation for Speech: Inpatient Speech Therapy Cut Press Operator Clinican/Clinical Fellow: No Supervisory Statement: I have reviewed and agree with the student/clinical fellow's documentation: N/A Speech Language Pathologist: Brenda De Leon M.A., CCC-[facility]
--- NOTE | 2022-06-18 11:42 | MHC.CLN ---
F/U PO INTAKE 25-50% DIET RX: 2GM NA GRD M/S WITH NT LIQ-APPROPRIATE PT RECEIVING ENSURE TID TO IMPROVE WOUND HEALING SUPP PROVIDES 1050KCALS, 60G PROTEIN CONTINUE TO MONITOR PO INTAKE AND SUPP ACCEPTANCE
--- NOTE | 2022-06-18 12:49 | PM.DS ---
DS: Providers Provider Date of Service: 06/18/22 Date of admission: 06/13/22 15:10 Date of discharge: 06/18/22 Primary care physician: ROLF HARRIS Consults: 06/14/22 08:09 Consult to Cardiology Routine Consulting Provider: [facility] [place] [facility] Reason for consultation: NSTEMI Has provider been notified: No Consult to Nephrology Routine Consulting Provider: [facility] Reason for consultation: Acute Kidney Injury / Oliguria Has provider been notified: No 06/14/22 13:56 Consult to Infectious Diseases Routine Consulting Provider: [facility] [place] [facility] Reason for consultation: strep bacteremia -unclear etiology Has provider been notified: No 06/14/22 15:01 Consult to Gastroenterology Routine Consulting Provider: [facility] [place] [facility] Reason for consultation: elevated lft's-? ischemic hepatitis Has provider been notified: No DS: Diagnosis Discharge Diagnosis (1) ATN (acute tubular necrosis): Status: Acute (2) Ischemic hepatitis: Status: Acute (3) NSTEMI (non-ST elevated myocardial infarction): Status: Acute (4) Group A streptococcal infection: Status: Acute (5) Sepsis: Status: Acute DS: Summary Hospital Course Hospital Course: Hpi(as per icu note): 87-year-old gentleman with underlying history of AFib, hypothyroidism, hypertension, systolic heart failure admitted on 06/13/2022 from nursing facility for complains of hypertension and fever.? On ER evaluation patient febrile with poor response to initial IV fluids started on broad-spectrum antibiotics and vasopressor support and admitted to the intensive care unit. Hospital course: 82-year-old male with history of dementia, senior care resident multiple comorbidities including(AFib, cardiomyopathy, ICD): Admitted to ICU because of severe sepsis(please see above Hpi section)-started on IV antibiotics, also had NSTEMi started on anticoagulation, in addition patient also hospital course complicated with ELYSSA and ischemic hepatitis, also found to have group a Streptococcus pyogenes bacteremia. With above management and supportive care patient did not respond significantly, his overall prognosis is very poor. Subsequently discussed by hospitalist team with family and family decided for comfort measures. Patient will be going to the senior care today. Time Spent with Patient Time attestation: Total time managing care of this patient today ____ minutes. Discharge coordination time: Greater than 30 minutes Quality: Safe Use of Opioids Does Pt have an Active Cancer Diagnosis on the Problem List?: No Quality: Stroke Does the patient have a stroke diagnosis?: No Physical Exam Vital Signs: Vital Signs: Last Vital Signs Temp 97.7 F 06/18/22 11:21 Pulse 107 H 06/18/22 11:21 Resp 16 06/18/22 11:21 BP 189/71 H 06/18/22 11:21 Pulse Ox 92 06/18/22 11:21 O2 Del Method Nasal Cannula 06/18/22 11:21 O2 Flow Rate 3 06/17/22 15:31 Oxygen Flow Rate 4 06/13/22 08:47 BMI result Body Mass Index 32.4 Appearance: awake,?follow simple commands . cvs: rrr, [id number] . res: air entry diminshed , no rales or wheezin abd: no rebound or guarding ,nt, bs present. ext pulses present , no cyanosis . neuro: moves allext. DS: Data Data Completed and Pending Labs on day of discharge: Preliminary micro results at discharge 06/14/22 19:28 Blood Culture - Preliminary Blood - Venous No growth after 48 hours. 06/14/22 19:28 Blood Culture - Preliminary Blood - Venous No growth after 48 hours. Imaging Chest x-ray: Radiologist's impression: ITS Impressions Head CT 06/13/22 08:43 IMPRESSION: No acute intracranial process seen. This critical result was discussed with Dr. Valente imaging at 8:15 AM on 06/13/2022. It was ascertained that the content and urgency of the report was understood at the time of direct communication. Chest X-Ray 06/13/22 09:42 IMPRESSION: Central vascular prominence and probable mild interstitial pulmonary edema. Bibasilar atelectasis/infiltrate. Abdomen/Pelvis CT 06/14/22 00:09 IMPRESSION: 1. No acute finding in the abdomen or pelvis. No hydronephrosis or nephrolithiasis. 2. Redemonstration of the right inguinal hernia repair with laxity of the abdominal wall in this area. Bowel extends into this area of laxity. No obstruction. 3. Exophytic left lower pole renal lesion is higher than simple fluid attenuation. This was simple fluid on the prior study from 04/10/2021. This could represent a hemorrhagic or proteinaceous cyst. This could be further evaluated with nonemergent ultrasound. Fleischner guidelines were followed. ? Discharge Plan Discharge Anticipated Discharge Date/Time: 06/18/22 12:51 Patient Disposition: Xfer SNF Discharge Diagnosis: severe sepsis,nstemi Referrals: [facility]ie Bravo [Outside] - 1 Week ROLF HARRIS [Primary Care Provider] - 1 Week Discharge Medications: New scopolamine base [Transderm-Scop] 1 mg over 3 days Patch 3 Day 1.5 mg transdermal Q72H Qty: 1 0RF omeprazole 20 mg Capsule,Delayed Release(Dr/Ec) 20 mg PO DAILY Qty: 1 0RF lorazepam 1 mg Tablet 1 mg sublingual Q4H PRN (Reason: Anxiety/Restlessness) Qty: 4 0RF morphine concentrate 100 mg/5 mL (20 mg/mL) solution 5 mg PO Q3H PRN (Reason: pain/comfort) 15 Days Qty: 30 0RF Rx Instructions: Partial Fill upon patient request. Discontinued apixaban [Eliquis] 2.5 mg tablet 2.5 mg PO BID Qty: 180 1RF acetaminophen 500 mg Tablet 500 mg PO BID PRN (Reason: Pain) levothyroxine 25 mcg tablet 1 tab PO DAILY@0600 cilostazol 50 mg tablet 50 mg PO BID metoprolol tartrate 25 mg Tablet 12.5 mg PO TID cholecalciferol (vitamin D3) 50 mcg (2,000 unit) Capsule 50 mcg PO DAILY amiodarone 200 mg tablet 200 mg PO DAILY@0800 magnesium hydroxide [Milk of Magnesia] 400 mg/5 mL Suspension 30 ml PO DAILY PRN (Reason: Constipation) Rx Instructions: use when dulcolax ineffective bisacodyl 10 mg Suppository 10 mg TX DAILY PRN (Reason: Constipation) Rx Instructions: use if milk of magnesia ineffective Fleet Enema 19-7 gram/118 mL Enema 118 ml TX DAILY PRN (Reason: Constipation) Rx Instructions: use when dulcolax ineffective zinc oxide Ointment 1 appl TOPICAL BID Rx Instructions: apply thin film to buttocks oxycodone 5 mg tablet 5 mg PO Q8H PRN (Reason: Mod/Severe Pain (Scale Score 4-10)) Rx Instructions: Partial Fill upon patient request. lisinopril 2.5 mg tablet 2.5 mg PO DAILY@0800 Discharge Orders: Discharge Order (Routine); Ordered 06/18/22 Ordered By: Luis Enrique Cole Diet: Advance to usual diet Activity on Discharge: As tolerated Stand Alone Forms: Patient Portal Discharge page Care Plan Goals: 82-year-old male with history of dementia, senior care resident multiple comorbidities including(AFib, cardiomyopathy, ICD): Admitted to ICU because of severe sepsis-started on IV antibiotics, also had NSTEMi started on anticoagulation, in addition patient also hospital course complicated with ELYSSA and ischemic hepatitis, also found to have group a Streptococcus pyogenes bacteremia. With above management and supportive care patient did not respond significantly, his overall prognosis is very poor. Subsequently discussed by hospitalist team with family and family decided for comfort measures. Health Concerns: As above. Plan of Treatment: As above. Assessment: As above. Discharge Date/Time: 06/18/22 16:02
[2022-06-18 14:23] LABS: COVID-19 Test Negative (Negative); IDNOW Serial# 08D9AD1C
[2022-06-18 16:03] LABS: Streptolysin O Antibody 103 IU/mL (<200)
== END 2022-06-18 16:02 | disposition skilled nursing facility (03) | DRG 871 ==
LOC: HO.ED 14:46 → HO.EDOVER 15:15 → HO.ICU 15:20 → HO.IMC 06-14 08:21
PROVIDERS: Internal Medicine; Physician Assistant Medical; Admitting Provider Internal Medicine Pulmonary Disease; Emergency Provider Emergency Medicine; PCP Emergency Medicine; Visit Provider Internal Medicine
DX: A40.0 Sepsis due to streptococcus, group A (principal); I21.A1 Myocardial infarction type 2; I50.23 Acute on chronic systolic (congestive) heart failure; N17.0 Acute kidney failure with tubular necrosis; K72.00 Acute and subacute hepatic failure without coma; J96.01 Acute respiratory failure with hypoxia; L03.116 Cellulitis of left lower limb; I51.81 Takotsubo syndrome; I13.0 Hypertensive heart and chronic kidney disease with heart failure and stage 1 through stage 4 chronic kidney disease, or unspecified chronic kidney disease; I47.20 Ventricular tachycardia, unspecified; G93.49 Other encephalopathy; F03.90 Unspecified dementia, unspecified severity, without behavioral disturbance, psychotic disturbance, mood disturbance, and anxiety; Z51.5 Encounter for palliative care; R65.20 Severe sepsis without septic shock; N18.30 Chronic kidney disease, stage 3 unspecified; I48.0 Paroxysmal atrial fibrillation; Z95.810 Presence of automatic (implantable) cardiac defibrillator; Z20.822 Contact with and (suspected) exposure to COVID-19; Z79.899 Other long term (current) drug therapy
CPT/HCPCS: 0241U; 36415; 70450; 71045; 74176; 80048; 80053; 80202; 81001; 82550; 82803; 82947; 83605; 83735; 84100; 84484; 85025; 85027; 85610; 85730; 86060; 86704; 86706; 86709; 86803; 87040; 87070; 87147; 87186; 87205; 87340; 87635; 92526; 92610; 93005; 93306; 99285; J0696; J1643; J2270; J2543; J3010; J3370; J3475; P9047